=== PATIENT | female | born 1965 | race Caucasian/White ===

== ENCOUNTER 2023-08-08 12:21 | Outpatient (OUT) | payer OTHER, SELFPAY ==
--- NOTE | 2023-08-08 12:26 | XR_ITS ---
[address] [address] Patient Name: ERIK CORONA MRN: [id number] date: 1965 Sex: F Assigned Patient Location: [facility] Current Patient Location: [facility] Accession/Order Number: [id number] Exam Date: 08/08/2023 12:50 Report Date: 08/08/2023 13:52 At the request of: NON-STAFF PHYSICIAN Procedure: XR hand GATO min 3v EXAMINATION: XR hand GATO min 3v HISTORY: pain in both hands M79.641 COMPARISON: No relevant comparison available. FINDINGS: RIGHT FINDINGS: BONES: No acute fracture or dislocation. Severe degenerative change of the first carpometacarpal joint with [id number] articulation and bony remodeling. SOFT TISSUES: Negative. No visible soft tissue swelling. OTHER: Negative. LEFT FINDINGS: BONES: No acute fracture or dislocation. Degenerative changes with mild narrowing of the first carpometacarpal joint SOFT TISSUES: Negative. No visible soft tissue swelling. OTHER: Negative. XR/XR hand GATO min 3v IMPRESSION: RIGHT CONCLUSION: Severe first carpometacarpal osteoarthritis LEFT CONCLUSION: Mild first carpometacarpal osteoarthritis Electronically authenticated by: NEW GARCIA Date: 08/08/2023 13:52
--- NOTE | 2023-08-08 12:27 | XR_ITS ---
[address] [address] Patient Name: ERIK CORONA MRN: [id number] date: 1965 Sex: F Assigned Patient Location: [facility] Current Patient Location: [facility] Accession/Order Number: [id number] Exam Date: 08/08/2023 12:50 Report Date: 08/08/2023 13:50 At the request of: NON-STAFF PHYSICIAN Procedure: XR foot GATO min 3V EXAMINATION: XR foot GATO min 3V HISTORY: primary osteoarthritis involving multiple joints M15.9 COMPARISON: No relevant comparison available. FINDINGS: RIGHT FINDINGS: BONES: No acute fracture or dislocation. Moderate enthesopathic spurring of the calcaneus at the Achilles and plantar insertions. No focal lytic or sclerotic changes SOFT TISSUES: Negative. No visible soft tissue swelling. OTHER: Negative. LEFT FINDINGS: BONES: No acute fracture or dislocation. Moderate enthesopathic spurring plantar calcaneus. No focal lytic or sclerotic changes SOFT TISSUES: Negative. No visible soft tissue swelling. OTHER: Negative. XR/XR foot GATO min 3V IMPRESSION: Bilateral calcaneal enthesopathic spurring Electronically authenticated by: NEW GARCIA Date: 08/08/2023 13:50
--- NOTE | 2023-08-08 12:28 | XR_ITS ---
The [address] [address] Patient Name: ERIK CORONA MRN: [id number] date: 1965 Sex: F Assigned Patient Location: [facility] Current Patient Location: [facility] Accession/Order Number: [id number] Exam Date: 08/08/2023 12:50 Report Date: 08/08/2023 13:54 At the request of: NON-STAFF PHYSICIAN Procedure: XR knee GATO 4V EXAMINATION: XR knee GATO 4V HISTORY: primary osteoarthritis involving multiple joints M15.9 COMPARISON: No relevant comparison available. FINDINGS: RIGHT FINDINGS: BONES: No acute fracture or dislocation. Mild to moderate tricompartmental osteoarthropathy with joint space narrowing marginal osteophyte formation SOFT TISSUES: Negative. No visible soft tissue swelling. OTHER: Negative. LEFT FINDINGS: BONES: No acute fracture or dislocation. Mild to moderate tricompartmental osteoarthropathy with joint space narrowing and marginal osteophyte formation SOFT TISSUES: Negative. No visible soft tissue swelling. OTHER: Negative. XR/XR knee GATO 4V IMPRESSION: Bilateral mild to moderate osteoarthritis Electronically authenticated by: NEW GARCIA Date: 08/08/2023 13:54
== END 2023-08-08 12:22 | disposition home or self-care (01) ==
LOC: RAD 12:21
PROVIDERS: PCP Internal Medicine
DX: M79.641 Pain in right hand (principal); M79.642 Pain in left hand; M19.041 Primary osteoarthritis, right hand; M19.042 Primary osteoarthritis, left hand; M25.561 Pain in right knee; M25.562 Pain in left knee; M79.671 Pain in right foot; M79.672 Pain in left foot
CPT/HCPCS: 73130; 73564; 73630

== ENCOUNTER 2023-10-11 10:48 | Outpatient (OUT) | payer OTHER, SELFPAY ==
--- OUTSIDE RECORDS SUMMARY | 2023-10-11 11:03 | XMS_ITS | CCD ---
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 Name Role Phone Lito Mcrae DO Primary Care Provider LALY, DR MARIO Admitting Unavailable LALY, DR MARIO Primary Care Unavailable LALY, DR MARIO Consulting Unavailable LALY, DR MARIO Attending Unavailable LALY, DR MARIO Admitting Unavailable LALY, DR MARIO Primary Care Unavailable LALY, DR MARIO Consulting Unavailable LALY, DR MARIO Attending Unavailable RADHA, DR NEW [place] Consulting Unavailable Lito Mcrae DO Primary Care Provider Lito Mcrae LITO MCRAE Primary Care Unavailable DELIA RUSHING Attending Unavailable LITO MCRAE Primary Care Unavailable DELIA RUSHING Referring Unavailable LITO MCRAE Primary Care Unavailable DELIA RUSHING Attending Unavailable LITO MCRAE Primary Care Unavailable Allergies Allergy Classification Reported Allergen(s) Allergy Type Date of Onset Reaction(s) Facility (1 source) patient allergy list reviewed by nurse or physicia Propensity to adverse reactions Comment:Done [employer] Other Medications Current Medications Medication Drug Class(es) Dates Sig (Normalized) Sig (Original) 3 ML semaglutide 1.34 MG/ML Pen Injector [Ozempic] (6 sources) Ozempic (1 MG/DO SE) 4 MG/3ML as directed Subcutaneous 1mg Active 3 ML semaglutide 2.68 MG/ML Pen Injector [Ozempic] (13 sources) Start: 09-22-2022 inject 2 mg by subcutaneous injection every week Ozempic (2 MG/DOSE) 8 MG/3ML 2mg Subcutaneous weekly Aug, Active Start: 09-22-2022 Start: 09-22-2022 inject 2 mg by subcu taneous injection every week Ozempic (2 MG/DOSE) 8 MG/3ML 2mg Subcutaneous weekly for 90 days Aug, Active acetaminophen 500 mg oral tablet (7 sources) Start: 08-14-2023 take 1 tablet by mouth every six hours Acetaminophen (Tylenol Extra Strength) 500 mg tablet Active 500 MG PO Every 6 hours August 14, 2023 12:00am Comment on above: Take 500 mg by mouth as needed. 12 hr buPROPion hydrochloride 150 mg extended release oral tablet (20 sources) Aminoketone Start: 08-14-2023 take 1 tablet by mouth once daily in the morning Bupropion Hcl (Wellbutrin Sr) 150 mg tablet sustained-release 12 hr Active 150 MG PO Every morning August 14, 2023 12:00am take 1 tablet by mouth once [place] buPROPion XL (WELLBUTRIN XL) 150 mg 24 hr tablet Take 150 mg by mouth once daily. 0 Active take 1 tablet by felipa th every twenty-four hours Wellbutrin SR 150 MG 1 tablet in the mor josh Orally Once a day Active Comment on above: Take 150 mg by mouth once daily. escitalopram 20 mg oral tablet (20 sources) Serotonin Reuptake Inhibitor Start: 4 take 1 tablet by mouth twice daily Escitalopram Oxalate Active 1 TAB PO Twice daily August 14, 2023 12:00am FreeTextSi tablet Orally twice daily; Note: Source Status: Refill; Refills: 1; Provider: Laly Roque Start: 01-27-2018 escitalopram o xalate (LEXAPRO) 20 mg tablet once daily. 0 01/27/2018 Active take 1 tablet by felipa th twice daily Escitalopram Oxalate 20 MG 1 tablet Orally twice daily for 90 days Active Comment on above: once daily. esomeprazole 20 mg delayed release oral capsule (20 sources) Proton Pump Inhibitor Start: 4 take 1 capsule by mouth once daily Esomeprazole Magnesium (Nexium) 20 mg capsule,delayed release(DR/EC) Active 20 MG PO Daily August 14, 2023 12:00am esomeprazole (NE XIUM) 20 mg capsule Take 40 mg by mouth as needed. 0 Active Esomeprazole Mag nesium 40 MG TAKE 1 CAPSULE BY MOUTH EVERY DAY ON EMPTY STOMACH 30 MINUTES PRIOR TO BREAKFAST for 30 Not-Taking/PRN take 1 capsule by mo [facility] every twenty-four hours NexIUM 24HR 20 MG 1 capsule Orally Once a day Active Comment on above: Take 40 mg by mouth as needed. etodolac 500 mg oral tablet (6 sources) Nonsteroidal Anti-inflammatory Drug take 1 tablet by mouth every twelve hours Etodolac 500 MG 1 tablet with food Orally Twice a day Active hydroCHLOROthiazide 12.5 mg / lisinopril 20 mg oral tablet (20 sources) Thiazide Diuretic, Angiotensin Converting Enzyme Inhibitor Start: 08-14-19 take 2 tablets by mouth once daily Lisinopril-Hydr ochlorothiazide Active 2 TAB PO Daily August 14, 2023 12:00am FreeTextSi tablet Orally Once a day; Note: Source Status: Refill; Refills: 1; Qty: 180 Tablet; Provider: Laly Roque take 1 tablet by felipa th once daily Lisinopril-hydroCHLOROthiazide 20-12.5 M G 1 tablet Orally Once a day Active take 1 tablet by felipa th every twenty-four hours Comment on above: Take 2 tablets by mo [facility] once daily. ibuprofen 200 mg oral tablet (20 sources) Nonsteroidal Anti-inflammatory Drug Start: 08-14-2023 take 200 mg by mouth three times daily Ibuprofen Active 200 MG PO Three times daily August 14, 2023 12:00am ibuprofen (MOTRI N) 400 mg tablet Take 400 mg by mouth as needed. 0 Active take 1 tablet by felipa three times daily at mealtime as needed Ibuprofen 200 MG 1 tablet with food or milk as needed Orally Three times a day Active Comment on above: Take 400 mg by mouth as needed. ozempic (2 mg/dose) 8 mg/3ml solution pen-injector (2 sources) Start: 09-23-19 inject 2 mg by subcutaneous injection every week Ozempic (2 MG/DOSE) 8 MG/3ML 2mg Subcutaneous weekly Aug, Active predniSONE 20 mg oral tablet (4 sources) Start: 11-30-19 predniSONE 20 MG 1 tablet Orally tid w/ food x 3 days, then bid w/ food x 3 days, then qd w/ food x 3 days for October, Active Semaglutide (Ozempic) 2 mg/dose (8 mg/3 mL) pen injector (1 source) Start: 08-14-19 inject 2 mg by subcutaneous injection every week Semaglutide (Ozempic) 2 mg/dose (8 mg/3 mL) pen injector Active MG SUBCUT August 14, 2023 12:00am FreeTextSimg Subcutaneous weekly; Note: Source Status: Continue; Provider: Laly Roque traMADol hydrochloride 50 mg oral tablet (8 sources) Opioid Agonist Start: 08-14-19 take 50 mg by mouth once daily at bedtime Tramadol Active 50 MG PO Daily at bedtime August 14, 2023 12:00am Start: 05-25-2023 take 1 tablet by felipa th once at bedtime as needed traMADol HCl 50 MG 1 tablet as needed Orally q HS May, Active Tylenol Extra Strength 500 M G (13 sources) take 1 tablet by felipa th every six hours as needed Tylenol Extra Strength 500 MG 1 tablet a s needed Orally every 6 hrs Active Completed/Discontinued Medications Medication Drug Class(es) Dates Sig (Normalized) Sig (Original) Calcium Carbonate / vitamin D3 (2 sources) End: 10-31-2022 CALCIUM CARBONATE/VITAMIN D3 (CALCIUM 600 + D ORAL) Take by mouth twice daily. 0 10/31/2022 Discontinued CALCIUM CARBONAT E/VITAMIN D3 (CALCIUM 600 + D ORAL) Take by mouth twice daily. 0 Active Comment on above: Take by mouth twice daily. cholecalciferol 0.125 mg oral tablet (2 sources) Vitamin D End: 2022 take 1 tablet by mouth once daily cholecalciferol (VITAMIN D-3) 5,000 unit tab Take 5,000 Units by mouth once daily. 0 10/31/2022 Discontinued Comment on above: Take 5,000 Units by mouth once daily. chromium picolinate 0.2 mg oral tablet (2 sources) End: 2022 take 1 tablet by mouth once daily Chromium Picolinate 200 mcg tab Take 200 mcg by mouth once daily. 0 10/31/2022 Discontinued Comment on above: Take 200 mcg by mout h once daily. cinnamon bark 1000 mg oral capsule (2 sources) End: 2022 take 1000 mg by mouth once daily CINNAMON BARK ORAL Take 1,000 mg by mouth once daily. 0 10/31/2022 Discontinued Comment on above: Take 1,000 mg by felipa th once daily. ergocalciferol 1.25 mg oral capsule (2 sources) Provitamin D2 Compound Start: 2022 End: 2023 ergocalciferol 50,000 unit capsule (VITAMIN D2, DRISDOL) Indications: BMI 50.0-59.9, adult (HCC) , Vitamin D deficiency , Hyperparathyroidism due to vitamin D deficiency (HCC) Take 1 capsule by mouth two times a week. (FOR EXAMPLE ONE CAPSULE ON SUNDAY AND ONE ON SUNDAY) FOR A TOTAL OF 8 WEEKS, WITH A MEAL 8 capsule 1 11/29/2022 10/09/2023 Discontinued (Discontinued by Patient) Comment on above: Take 1 capsule by mo [facility] two times a week. (FOR EXAMPLE ONE CAPSULE ON SUNDAY AND ONE ON SUNDAY) FOR A TOTAL OF 8 WEEKS, WITH A MEAL hydroxychloroquine sulfate 200 mg oral tablet (20 sources) Antimalarial, Antirheumatic Agent Start: 2020 End: 2021 take 1 tablet by mouth twice daily hydrOXYchloroQUINE (PLAQUENIL) 200 mg tablet Indications: Keratoconjunctivitis sicca, in Sjogren's syndrome ([facility]) Take 1 tablet by mouth twice a day 180 tablet 2 03/31/2022 Active Comment on above: Take 1 tablet by felipa th twice daily. Take 1 tablet by felipa th twice a day Lactobacillus acidophilus (2 sources) End: 2022 LACTOBACILLUS ACIDOPHILUS (PROBIOTIC ORAL) Take by mouth once daily. 0 10/31/2022 Discontinued LACTOBACILLUS AC IDOPHILUS (PROBIOTIC ORAL) Take by mouth once daily. 0 Active Comment on above: Take by mouth once d aily. magnesium oxide 500 mg oral tablet (2 sources) End: 10-31-2022 take 1 tablet by mouth once daily Magnesium Oxide 500 mg tab Take 500 mg by mouth once daily. 0 10/31/2022 Discontinued Comment on above: Take 500 mg by mouth once daily. omega 6-yzu-rhp-fish oil (FISH OIL) 100-160-1,000 mg cap (2 sources) End: 10-31-2022 omega 0-sjd-zhy-fish oil (FISH OIL) 100-160-1,000 mg cap Take by mouth twice daily. 0 10/31/2022 Discontinued omega 3-dha-epa- fish oil (FISH OIL) 100-160-1,000 mg cap Take by mouth twice daily. 0 Active Comment on above: Take by mouth twice daily. semaglutide (OZEMPIC) 0.25 mg or 0.5 mg (2 mg/3 mL) pen (3 sources) End: 10-09-2023 semaglutide (OZEMPIC) 0.25 mg or 0.5 mg (2 mg/3 mL) pen Inject subcutaneously one time a week. 0 10/09/2023 Discontinued (Discontinued by Patient) semaglutide (OZE MPIC) 0.25 mg or 0.5 mg (2 mg/3 mL) pen Inject subcutaneously one time a week. 0 Active Comment on above: Inject subcutaneousl y one time a week. VITAMIN B COMPLEX ORAL (2 sources) End: 10-31-2022 VITAMIN B COMPLEX ORAL Take by mouth once daily. 0 10/31/2022 Discontinued VITAMIN B COMPLE X ORAL Take by mouth once daily. 0 Active Comment on above: Take by mouth once d aily. Problems Active Problems Problem Classification Problem Date Documented Date Episodic/Chronic Administrative/social admission (6 sources) Patient encounter status; Translations: [Other specified counseling] Episodic Anxiety disorders (20 sources) Generalized anxiety disorder; Translations: [Generalized anxiety disorder] Onset: 01-01-20 14 Chronic Calculus of urinary tract (2 sources) H/O: urinary stone; Translations: [Personal history of urinary calculi] Onset: 02-08-20 19 Episodic Diabetes mellitus with complications (20 sources) Hyperglycemia due to type 2 diabetes mellitus; Translations: [Type 2 diabetes mellitus with hyperglycemia] Chronic Diabetes mellitus without complication (1 source) Impaired fasting glycemia; Translations: [Impaired fasting glucose] Episodic Diseases of mouth; excluding dental (2 sources) Xerostomia; Translations: [Dry mouth, unspecified] Episodic Diseases of white blood cells (1 source) Leukocytosis; Translations: [Elevated white blood cell count, unspecified] Onset: 02-08-20 19 Chronic Disorders of lipid metabolism (16 sources) Pure hypercholesterolemia; Translations: [Familial hypercholesterolemia] Chronic Disorders of teeth and jaw (16 sources) Dental abscess; Translations: [Periapical abscess without sinus] Episodic Esophageal disorders (20 sources) Gastro-esophageal reflux disease with esophagitis; Translations: [Gastroesophageal reflux disease with esophagitis without hemorrhage] Chronic Essential hypertension (20 sources) Essential hypertension; Translations: [Essential (primary) hypertension] Onset: 02-04-20 15 12-17-2016 Chronic Immunizations and screening for infectious disease (3 sources) Anti-nuclear factor positive; Translations: [Other specified abnormal immunological findings in serum] Onset: 11-01-19 23 Episodic Menopausal disorders (1 source) Menopause present; Translations: [Menopausal and female climacteric states] Onset: 01-01-20 14 Chronic Mood disorders (20 sources) Mild major depression, single episode; Translations: [Major depressive disorder, single episode, mild] Onset: 02-04-20 15 Chronic Mycoses (1 source) Candidiasis of skin and nails; Translations: [Candidiasis of skin and nail] Episodic Nausea and vomiting (15 sources) Nausea; Translations: [Nausea] Episodic Nutritional deficiencies (2 sources) Vitamin D deficiency; Translations: [Vitamin D deficiency, unspecified] Onset: 05-15-20 17 10-09-2023 Chronic Osteoarthritis (20 sources) Degenerative joint disease involving multiple joints; Translations: [Polyosteoarthritis, unspecified] Onset: 05-15-20 17 03-23-2019 Chronic Other connective tissue disease (15 sources) Pain in limb; Translations: [Pain in right foot] Episodic Other connective tissue disease (16 sources) Achilles bursitis; Translations: [Achilles tendinitis, right leg] Episodic Other connective tissue disease (15 sources) Calcaneal spur; Translations: [Calcaneal spur, right foot] Episodic Other connective tissue disease (2 sources) Pain in right hand; Translations: [PAIN IN RIGHT HAND] Onset: 09-27-19 23 Episodic Other connective tissue disease (2 sources) Pain in left hand; Translations: [PAIN IN LEFT HAND] Onset: 09-27-19 23 Episodic Other connective tissue disease (5 sources) Pain in right foot; Translations: [PAIN IN RIGHT FOOT] Onset: 09-24-19 23 Episodic Other connective tissue disease (1 source) Pain of bilateral hands; Translations: [Pain in right hand] Episodic Other connective tissue disease (1 source) Exostosis of right calcaneus; Translations: [Calcaneal spur, right foot] Episodic Other connective tissue disease (1 source) Calcaneal spur of right foot; Translations: [Calcaneal spur, right foot] Episodic Other connective tissue disease (1 source) Pain in right foot; Translations: [Pain in right foot] Episodic Other connective tissue disease (1 source) Pain in both feet; Translations: [Pain in right foot] 10-09-2023 Episodic Other endocrine disorders (1 source) Hyperparathyroidism due to vitamin D deficiency; Translations: [Secondary hyperparathyroidism, not elsewhere classified] 10-09-2023 Chronic Other eye disorders (2 sources) Dry eyes; Translations: [Dry eye syndrome of bilateral lacrimal glands] Episodic Other female genital disorders (1 source) Abnormal uterine bleeding; Translations: [Abnormal uterine and vaginal bleeding, unspecified] Onset: 01-24-20 14 Chronic Other gastrointestinal disorders (16 sources) Diarrhea; Translations: [Diarrhea, unspecified] Episodic Other non-traumatic joint disorders (1 source) Allergic arthritis of the hand; Translations: [Allergic arthritis, hand] Onset: 04-22-20 14 Chronic Other non-traumatic joint disorders (1 source) Pain in right knee; Translations: [Pain in joint, lower leg] 10-09-2023 Episodic Other nutritional; endocrine; and metabolic disorders (16 sources) Body mass index 40+ - severely obese; Translations: [Morbid (severe) obesity due to excess calories] Onset: 09-05-19 14 09-17-2020 Chronic Other nutritional; endocrine; and metabolic disorders (16 sources) Morbid obesity; Translations: [Morbid (severe) obesity due to excess calories] Chronic Other nutritional; endocrine; and metabolic disorders (2 sources) Morbid (severe) obesity due to excess calories Chronic Other nutritional; endocrine; and metabolic disorders (1 source) Obesity; Translations: [Obesity, unspecified] Onset: 09-05-19 14 Chronic Other nutritional; endocrine; and metabolic disorders (1 source) Metabolic syndrome X; Translations: [Metabolic syndrome] Onset: 12-28-19 19 Chronic Other nutritional; endocrine; and metabolic disorders (9 sources) Severe obesity; Translations: [Morbid (severe) obesity due to excess calories] Chronic Other nutritional; endocrine; and metabolic disorders (1 source) Body mass index (BMI) 50.0-59.9, adult Chronic Other upper respiratory infections (2 sources) Acute maxillary sinusitis; Translations: [Acute maxillary sinusitis, unspecified] Onset: 08-12-19 16 Episodic Rheumatoid arthritis and related disease (20 sources) Inflammatory polyarthropathy; Translations: [Inflammatory polyarthropathy] Onset: 10-29-19 16 Chronic Systemic lupus erythematosus and connective tissue disorders (20 sources) Keratoconjunctivitis sicca, in Sjogren's syndrome; Translations: [Sicca syndrome with keratoconjunctivitis] Onset: 12-18-19 17 Chronic Past or Other Problems Problem Classification Problem Date Documented Date Episodic/Chronic Bacterial infection; unspecified site (1 source) Bacterial infectious disease; Translations: [Bacterial infection, unspecified, in conditions classified elsewhere and of unspecified site] Onset: 7 Episodic Esophageal disorders (4 sources) Esophageal disorders; Translations: [Gastro-esophageal reflux disease with esophagitis, without bleeding] Genitourinary symptoms and ill-defined conditions (1 source) Dysuria; Translations: [Dysuria] Onset: 5 Episodic Infective arthritis and osteomyelitis (except that caused by tuberculosis or sexually transmitted disease) (1 source) Infective arthritis of joint of hand; Translations: [Unspecified infective arthritis, hand] Onset: 4 Episodic Other aftercare (1 source) Encounter for therapeutic drug level monitoring; Translations: [Encounter for monitoring of hydroxychloroquine therapy] Onset: 3 Episodic Other aftercare (1 source) Other skilled nursing (current) drug therapy; Translations: [Encounter for monitoring of hydroxychloroquine therapy] Onset: 3 Episodic Other female genital disorders (1 source) Mucous polyp of cervix; Translations: [Polyp of cervix uteri] Onset: 4 Episodic Other non-traumatic joint disorders (4 sources) Multiple joint pain; Translations: [Pain in unspecified joint] Onset: 1 03-18-2021 Episodic Other non-traumatic joint disorders (1 source) Arthralgia of the ankle and/or foot; Translations: [Pain in joint, ankle and foot] Onset: 8 Episodic Other screening for suspected conditions (not mental disorders or infectious disease) (3 sources) Encounter for screening mammogram for malignant neoplasm of breast; Translations: [Encounter for screening for malignant neoplasm of colon] Onset: 9 Episodic Residual codes; unclassified (1 source) Postmenopausal state; Translations: [Asymptomatic postmenopausal status] Onset: 5 Episodic Viral infection (1 source) Herpes zoster without complication; Translations: [Zoster without complications] Onset: 5 Episodic Results Test Name Value Interpretation Reference Range Facility [facility] 10-09-2023 CNOV Office Visit (RENZO ) -------- KASSIDY CORONA ([id number]) 1965 F Date Time Provider Department 10/09/23 10:40 AM DELIA RUSHING During your visit today, we recorded the following information about you: Pulse Blood pressure Weight 66/minute 148/78 140.6 kg Delia Rushing MD 10/09/2023 7:52 PM Signed Rheumatology FOLLOW UP VISIT Referring Provider: Self Date of Service: 10/09/2023 Gender: female Ethnicity: White Age: [age] year old Chief Complaint: Follow Up Last Rheumatology visit: 10/31/2022 (with Delia Rushing) Kassidy Corona is a 58 year old White female who presents on 10/09/2023 for in person visit for follow up of Follow Up. She is currently taking hydroxychloroquine sulfate. INTERVAL HISTORY Ms. Corona is a very nice 58 y.o. lady here for f/u Sjogren's Syndrome October 09, 2023 Sicca symptoms same, stable No par. gld swelling No keratoconjunctivitis sicca since last visit, following with transactional attorney No skin rashes States wonders if may have RA from reading the internet States LB, muscles in hips Fatigue Weakness in LE Stiffness : joint and muscle Knees, wrist, fingers, states sometimes they last all day , like they're internally swollen but you can't internally see it Sometimes feels flu Numbness and tingling, when sleeping at night, fingers Feels losing quality Trouble sleeping most of the time Advised on evaluation for sleep apnea Body mass index is 53.21 kg/m?. -States has been taking hydroxychloroquine 200 mg twice daily with meals -Taking Turmeric supplement with black pepper: 1000 mg with meals -Vitamin D supplement: 5000 international units once daily with meals Answers submitted by the patient for this visit: Review of Systems Rheumatology (Submitted on 10/02/2023) Fever : No Recent unintentional weight change: No Eye pain: No Eye redness: No Vision Disturbance: Yes Eye Dryness: Yes Nosebleeds: No Sores in your mouth: No Trouble Swallowing: No Dry Mouth: Yes Chest pain: No Leg Swelling: No A cough: No Shortness of breath: No Pain with breathing: No Heartburn: No Abdominal pain: No Diarrhea: No Black tarry stools: No Blood in urine: No Pain or burning with urination: No Joint pain or stiffness: Yes Muscle weakness: Yes Muscle aches: Yes Joint swelling: Yes- reviewed, no jt swelling, referring to basal thumb jts Morning Stiffness in Joints: Yes A rash: No Skin Color Changes: No Hair Loss: No Nail Changes: No Headaches: No Numbness: Yes Memory Loss: No Swollen Glands: No PAIN EVALUATION 10/02/2023 1237 Pain Level: 6 Pain Location: Generalized Description: Aching;Burning;Dull;Numb ness;Stabbing;Stiffness; Tingling Duration Units: Days Frequency: Continuous Intervention/Comfort measure: Medication;Relaxation Impression Diagnoses: (M35.00) Primary Sjogren's syndrome (HCC) (primary encounter diagnosis) (R76.8) KJ positive (H04.123) Dry eyes, bilateral (R68.2) Dry mouth (M35.01) Keratoconjunctivitis sicca, in Sjogren's syndrome (HCC) (Z51.81, Z79.899) Encounter for monitoring of hydroxychloroquine therapy (M79.671, M79.672) Pain in both feet (M25.561, M25.562) Pain in both knees, unspecified chronicity (E55.9) Vitamin D deficiency (E21.1) Hyperparathyroidism due to vitamin D deficiency (HCC) (M19.041, M19.042) Primary osteoarthritis of hands, bilateral (M15.9) Primary osteoarthritis involving multiple joints (Z71.2) Encounter to discuss test results (Z71.) Encounter for medication review and counseling (Z71.) Counseling on health promotion and disease prevention Patient with history of Sjogren's Syndrome, diagnosed by Dr. Mckeon, with xerophthalmia and xerostomia, KJ positive. She has had negative SSa, SSb, RF and rest of MISBAH panel. SPEP/UPEP have been negative. She has no history of lymphoma or mm. She has no findings for sarcoidosis, RA or other rheum disease. She has no parotid gland swelling, no vital organ involvement. She is managing well with conservative care and follows good oral and ocular care and is following with her dentist and eye doctor. She has long standing history of polyarthralgia with reported benefit to steroids (?dose) and Dr. Salcedo and Dr. Ortiz have prescribed hydroxychloroquine. The patient reports well tolerated, may have helped with her joint stiffness and has no swelling on hydroxychloroquine today. She wishes to continue on hydroxychloroquine. Her G6PD screen is negative. She follows yearly for her retina exam, no Plaquenil toxicity. In terms of her question, I reassured her that she has no clinical findings or evidence for Psoriatic Arthritis, Rheumatoid Arthritis and no other inflammatory arthropathy at this time. She has no nail pitting or dystrophy. She has commonly seen nail ridges. She hand carried her outside hand x-rays and I (more content not included)... Normal [facility] KJ BY IFA WITH REFLEXon KJ Pattern Nuclear fine speckled Cl [facility] KJ Titer 1:160 [facility] Nuclear Ab IF (S) [Titer] Positive Abnormal Negative [facility] C-REACTIVE PROTEIN (CRP)on 0 11-01-2022 CRP [Mass/Vol] 0.5 mg/dL <0.9 mg/dL [facility] C3 COMPLEMENT [facility] 11-02-19 23 Complement C3 [Mass/Vol] 145 mg/dL 86 - 166 mg/dL [facility] C4 COMPLEMENT [facility] 11-02-19 23 Complement C4 [Mass/Vol] 36 mg/dL 13 - 46 mg/dL [facility] CCP ANTIBODY IGGon Cyclic citrullinated peptide IgG Qn <20 Units [facility] Comprehensive metabolic 2000 panelon 11-01-2022 Albumin [Mass/Vol] 4.5 g/dL 3.9 - 4.9 g/dL [facility] ALP [Catalytic activity/Vol] 68 U/L 34 - 123 U/L [facility] [place] ALT [Catalytic activity/Vol] 12 U/L 7 - 38 U/L [facility] Anion gap [Moles/Vol] 10 mmol/L 9 - 18 mmol/L [facility] AST [Catalytic activity/Vol] 16 U/L 13 - 35 U/L [facility] [place] Bilirubin [Mass/Vol] 0.2 mg/dL 0.2 - 1 .3 mg/dL [facility] Calcium [Mass/Vol] 9.9 mg/dL 8.5 - 10. 2 mg/dL [facility] Chloride [Moles/Vol] 103 mmol/L 97 - 10 5 mmol/L [facility] CO2 [Moles/Vol] 29 mmol/L 22 - 30 mmol/L [facility] Creatinine [Mass/Vol] 0.82 mg/dL 0.58 - 0.96 mg/dL [facility] Estimated Glomerular Filtration Rate 83 mL/min/1.73m >=60 mL/min/1.73m [facility] [place] Glucose [Mass/Vol] 101 mg/dL High 74 - 99 mg/dL [facility] Potassium [Moles/Vol] 4.3 mmol/L 3.7 - 5.1 mmol/L [facility] Protein [Mass/Vol] 7.2 g/dL 6.3 - 8.0 g/dL [facility] Sodium [Moles/Vol] 142 mmol/L 136 - 144 mmol/L [facility] Urea nitrogen [Mass/Vol] 16 mg/dL 7 - 21 mg/dL [facility] Cyclic citrullinated peptide IgG Qnon 11-01-2022 CCP Antibody IgG Qualitative Negative Negative [facility] G-6-PD QUANTITATIVEon 2022 G6PD (RBC) [Catalytic activity/Mass] 12.7 U/g Hb 9.8 - 15.5 U/g Hb [facility] PTH INTACT BLDon 11-01-2022 Parathyrin.intact [Mass/Vol] 71 pg/mL High 15 - 65 pg/mL [facility] RHEUMATOID FACTOR BLon 11-01 Rheumatoid factor Qn <16 IU/mL [facility] THYROGLOBULIN ABon Thyroglobulin Ab Qn <4.0 IU/mL [facility] THYROID STIMULATING IMMUNOGL OBULIN BLOODon 11-01-2022 Thyroid stimulating immunoglobulins actual/normal (S) [Relative mass conc] <0.55 IU/L [facility] TSI Qualitative Negative Negative [facility] VITAMIN D 25 HYDROXYon 11-01 25-hydroxyvitamin D3 [Mass/Vol] 21.5 ng/mL Low 31.0 - 80.0 ng/mL [facility] 25(OH)D3 SerPl-ncon 2022 25-hydroxyvitamin D3 [Mass/Vol] 21.5 ng/mL Low 31.0-80.0 [facility] Comment on above: Order Comment: Speci men Type: BLOOD SPECIMEN Ordering Facility: [facility] Address: [address] [place] [address] Result Comment: Clas sification of 25 [place] Vitamin D status: Deficiency/Insufficiency: < or = 30 ng/ml. Sufficiency/Optimal Levels: 31-80 ng/mL Toxicity: > 100 ng/mL. Test performed by chemiluminescent immunoassay. Performed By: #### 1 7792-3, 17608-1, 45791-0, 29131-4, 14263-2, 48161-8, 36689-8, 82027-1, ANAIFR, 24082-4 #### [facility] CLIA [id number] [address] [place] [address] [place] KJ BY IFA WITH REFLEXon KJ PATTERN Nuclear fine speckled Normal [facility] Comment on above: Order Comment: Speci men Type: BLOOD SPECIMEN Ordering Facility: [facility] Address: [address] [place] [address] Performed By: #### 1 7792-3, 52793-7, 36183-4, 47082-9, 08645-3, 23301-6, 01393-5, 43001-0, ANAIFR, 68581-9 #### [facility] CLIA [id number] [facility] [place] [address] [place] KJ TITER 1:160 Normal [facility] Comment on above: Order Comment: Speci men Type: BLOOD SPECIMEN Ordering Facility: [facility] Address: [address] [place] [address] Performed By: #### 1 7792-3, 53287-6, 94771-1, 91360-5, 61678-3, 69279-3, 86487-9, 23154-5, ANAIFR, 62431-8 #### [facility] CLIA [id number] [address] [place] [address] [place] Nuclear Ab IF (S) [Titer] Positive Abnormal Negative [facility] Comment on above: Order Comment: Dieudonne orourke Type: BLOOD SPECIMEN Ordering Facility: [facility] Address: [address] [place] [address] Result Comment: Anti -nuclear antibody test is used as an aid in diagnosis of systemic autoimmune diseases. Where positive and clinically warranted, follow-up using disease-specific testing is recommended. Low positive titers are not uncommon with advanced age, certain chronic infections, and malignancies among others. Test methodology: Indirect fluorescence immunoassay (IFA) using HEp-2 cells. Performed By: #### 1 7792-3, 13963-2, 20927-9, 86923-7, 09134-3, 94150-8, 27301-3, 93329-3, ANAIFR, 82042-9 #### [facility] CLIA [id number] [address] [place] [address] [place] C3 SerPl-mCncon 10-31-2022 Complement C3 [Mass/Vol] 145 mg/dL Normal 86-166 [facility] Comment on above: Order Comment: Dieudonne orourke Type: BLOOD SPECIMEN Ordering Facility: [facility] Address: [address] [place], [place] [address] Performed By: #### 1 7792-3, 25881-8, 41085-9, 47867-9, 55573-8, 47858-3, 59136-1, 80616-0, ANAIFR, 25301-3 #### [facility] CLIA [id number] [address] [place] [address] [place] C4 SerPl-mCncon 10-31-2022 Complement C4 [Mass/Vol] 36 mg/dL Normal 13-46 [facility] Comment on above: Order Comment: Dieudonne orourke Type: BLOOD SPECIMEN Ordering Facility: [facility] Address: [address] [place] [address] [place] [address] Performed By: #### 1 7792-3, 12879-3, 69800-7, 26010-7, 94378-9, 37561-4, 06633-6, 66686-2, BRITNI, 06303-2 #### [facility] CLIA [id number] [address] [facility] [id number] [address] [place] CBC W Auto Differential pane l (Bld)on 10-31-2022 Basophils (Bld) [#/Vol] 0.04 10*3/uL <0.11 k/uL [facility] Basophils/100 WBC (Bld) 0.6 % [facility] Differential cell count method Nom (Bld) Auto [facility] Eosinophils (Bld) [#/Vol] 0.14 10*3/uL <0.46 k/uL [facility] Eosinophils/100 WBC (Bld) 2.1 % [facility] Erythrocyte distribution width (RBC) [Ratio] 13.0 % 11.5 - 15.0 % [facility] Hematocrit (Bld) [Volume fraction] 41.1 % 36.0 - 46.0 % [facility] Hemoglobin (Bld) [Mass/Vol] 13.6 g/dL 11.5 - 15.5 g/dL [facility] Immature granulocytes (Bld) [#/Vol] <0.10 k/uL [facility] Immature granulocytes/100 WBC (Bld) 0.3 % [facility] Lymphocytes (Bld) [#/Vol] 1.96 10*3/uL 1.00 - 4.00 k/uL [facility] Lymphocytes/100 WBC (Bld) 29.3 % [facility] MCH (RBC) [Entitic mass] 29.7 pg 26.0 - 34.0 pg [facility] MCHC (RBC) [Mass/Vol] 33.1 g/dL 30.5 - 36.0 g/dL [facility] MCV (RBC) [Entitic vol] 89.7 fL 80.0 - 100.0 fL [facility] Monocytes (Bld) [#/Vol] 0.45 10*3/uL <0.87 k/uL [facility] Monocytes/100 WBC (Bld) 6.7 % [facility] Neutrophils (Bld) [#/Vol] 4.08 10*3/uL 1.45 - 7.50 k/uL [facility] Neutrophils/100 WBC (Bld) 61.0 % [facility] Nucleated RBC (Bld) [#/Vol] <0.01 k/uL [facility] Nucleated RBC/100 WBC (Bld) [Ratio] 0.0 /100 WBC [facility] Platelet mean volume (Bld) [Entitic vol] 10.0 fL 9.0 - 12.7 fL [facility] Platelets (Bld) [#/Vol] 318 10*3/uL 150 - 400 k/uL [facility] RBC (Bld) [#/Vol] 4.58 10*6/uL 3.90 - 5.2 0 m/uL [facility] WBC (Bld) [#/Vol] 6.69 10*3/uL 3.70 - 11. 00 k/uL [facility] Basophils (Bld) [#/Vol] 0.04 10*3/uL Normal <0.11 [facility] Comment on above: Order Comment: Speci men Type: BLOOD SPECIMEN Ordering Facility: [facility] Address: [address] [place] [address] Performed By: #### 1 7792-3, 06684-5, 33752-3, 14533-2, 11449-8, 22022-9, 55002-9, 82043-4, ANAIFR, 84357-6 #### [facility] CLIA [id number] [address] [facility] Basophils/100 WBC (Bld) 0.6 % Normal [facility] Comment on above: Order Comment: Speci men Type: BLOOD SPECIMEN Ordering Facility: [facility] Address: [address] [place] [address] Performed By: #### 1 7792-3, 57883-2, 63005-8, 79333-2, 28231-8, 76199-5, 12739-7, 99709-7, ANAIFR, 21956-7 #### [facility] CLIA [id number] [address] [place] [address] [place] Differential cell count method Nom (Bld) Auto Normal [facility] Comment on above: Order Comment: Speci men Type: BLOOD SPECIMEN Ordering Facility: [facility] Address: [address] [place] [address] Performed By: #### 1 7792-3, 39433-0, 01283-7, 23619-7, 23540-1, 93045-1, 30399-1, 38054-3, ANAIFR, 07453-7 #### [facility] CLIA [id number] [facility] [place] [address] [place] Eosinophils (Bld) [#/Vol] 0.14 10*3/uL Normal <0.46 [facility] Comment on above: Order Comment: Speci men Type: BLOOD SPECIMEN Ordering Facility: [facility] Address: [address] [place], [place] [address] Performed By: #### 1 7792-3, 65801-4, 42100-0, 06980-1, 95061-9, 53210-8, 36904-2, 13038-0, ANAIFR, 39756-8 #### [facility] CLIA [id number] [address] [place] [address] [place] Eosinophils/100 WBC (Bld) 2.1 % Normal [facility] Comment on above: Order Comment: Speci men Type: BLOOD SPECIMEN Ordering Facility: [facility] Address: [address] [place], [place] [address] Performed By: #### 1 7792-3, 48915-2, 40923-3, 83860-9, 58114-7, 26775-5, 10654-4, 12119-0, ANAIFR, 13672-7 #### [facility] CLIA [id number] [facility] [place] [address] [place] Erythrocyte distribution width (RBC) [Ratio] 13.0 % Normal 11.5-15.0 [facility] Comment on above: Order Comment: Speci men Type: BLOOD SPECIMEN Ordering Facility: [facility] Address: [address] [place] [address] Performed By: #### 1 7792-3, 18964-2, 93215-8, 96791-3, 10159-0, 73446-5, 32885-4, 41191-7, ANAIFR, 19526-2 #### [facility] CLIA [id number] [address] [place] [address] [place] Hematocrit (Bld) [Volume fraction] 41.1 % Normal 36.0-46.0 [facility] Comment on above: Order Comment: Speci men Type: BLOOD SPECIMEN Ordering Facility: [facility] Address: [address] [place] [address] Performed By: #### 1 7792-3, 54999-0, 63016-4, 29042-7, 87393-0, 04293-3, 47554-0, 53088-8, ANAIFR, 64278-5 #### [facility] CLIA [id number] [address] [place] [address] [place] Hemoglobin (Bld) [Mass/Vol] 13.6 g/dL Normal 11.5-15.5 [facility] Comment on above: Order Comment: Speci men Type: BLOOD SPECIMEN Ordering Facility: [facility] Address: [address] [place] [address] Performed By: #### 1 7792-3, 17735-4, 42905-3, 79228-9, 78831-2, 56299-1, 31562-7, 82213-8, ANAIFR, 37089-3 #### [facility] CLIA [id number] [address] [place] [address] [place] Immature granulocytes (Bld) [#/Vol] 10*3/uL Normal <0.10 [facility] Comment on above: Order Comment: Speci men Type: BLOOD SPECIMEN Ordering Facility: [facility] Address: [address] Performed By: #### 1 7792-3, 43907-2, 05419-6, 02611-5, 93905-8, 11451-8, 54891-8, 52283-7, ANAIFR, 93683-5 #### [facility] CLIA [id number] [address] [place] [address] [place] Immature granulocytes/100 WBC (Bld) 0.3 % Normal [facility] Comment on above: Order Comment: Speci men Type: BLOOD SPECIMEN Ordering Facility: [facility] Address: [address] [place] [address] Performed By: #### 1 7792-3, 91141-5, 55452-1, 97134-3, 22187-4, 02234-3, 69884-2, 60340-3, ANAIFR, 62545-0 #### [facility] CLIA [id number] [address] [place] [address] [place] Lymphocytes (Bld) [#/Vol] 1.96 10*3/uL Normal 1.00-4.00 [facility] Comment on above: Order Comment: Speci men Type: BLOOD SPECIMEN Ordering Facility: [facility] Address: [address] [place] [address] Performed By: #### 1 7792-3, 44904-4, 04158-3, 41932-7, 51592-1, 10929-1, 08272-2, 80361-5, ANAIFR, 55706-8 #### [facility] CLIA [id number] [address] [place] [id number] [place] Lymphocytes/100 WBC (Bld) 29.3 % Normal [facility] Comment on above: Order Comment: Speci men Type: BLOOD SPECIMEN Ordering Facility: [facility] Address: [address] [place] [address] Performed By: #### 1 7792-3, 60087-6, 27560-1, 86629-6, 73180-1, 85082-4, 39599-6, 27437-8, ANAIFR, 96663-0 #### [facility] CLIA [id number] [address] [place] [address] [place] MCH (RBC) [Entitic mass] 29.7 pg Normal 26.0-34.0 [facility] Comment on above: Order Comment: Speci men Type: BLOOD SPECIMEN Ordering Facility: [facility] Address: [address] [place] [address] Performed By: #### 1 7792-3, 27835-1, 23678-2, 23408-4, 37073-7, 00010-0, 69843-2, 26552-7, ANAIFR, 83230-2 #### [facility] CLIA [id number] [address] [place] [address] [place] MCHC (RBC) [Mass/Vol] 33.1 g/dL Normal 30.5-36.0 [facility] Comment on above: Order Comment: Speci men Type: BLOOD SPECIMEN Ordering Facility: [facility] Address: [address] [place] [address] Performed By: #### 1 7792-3, 88437-8, 07991-4, 71314-5, 02179-8, 12867-1, 21277-6, 41258-1, ANAIFR, 86146-6 #### [facility] CLIA [id number] [address] [place] [address] [place] MCV (RBC) [Entitic vol] 89.7 fL Normal 80.0-100.0 [facility] Comment on above: Order Comment: Speci men Type: BLOOD SPECIMEN Ordering Facility: [facility] Address: [address] [place] [address] Performed By: #### 1 7792-3, 42780-2, 02545-3, 44824-8, 93870-0, 75066-8, 26457-1, 64314-1, ANAIFR, 87562-6 #### [facility] CLIA [id number] [address] [place] [address] [place] Monocytes (Bld) [#/Vol] 0.45 10*3/uL Normal <0.87 [facility] Comment on above: Order Comment: Speci men Type: BLOOD SPECIMEN Ordering Facility: [facility] Address: [address] [place] [address] Performed By: #### 1 7792-3, 23203-7, 37800-9, 02966-4, 17611-4, 61993-4, 52793-9, 78334-8, ANAIFR, 13183-5 #### [facility] CLIA [id number] [address] [place] [address] [place] Monocytes/100 WBC (Bld) 6.7 % Normal [facility] Comment on above: Order Comment: Speci men Type: BLOOD SPECIMEN Ordering Facility: [facility] Address: [address] [place] [address] Performed By: #### 1 7792-3, 23358-4, 53041-1, 40134-1, 70215-5, 39628-2, 44419-6, 24412-3, ANAIFR, 29006-9 #### [facility] CLIA [id number] [address] [place] [address] [place] Neutrophils (Bld) [#/Vol] 4.08 10*3/uL Normal 1.45-7.50 [facility] Comment on above: Order Comment: Speci men Type: BLOOD SPECIMEN Ordering Facility: [facility] Address: [address] [place] [address] Performed By: #### 1 7792-3, 85286-2, 79892-8, 91535-1, 88103-8, 62286-8, 00967-3, 51981-1, ANAIFR, 40270-0 #### [facility] CLIA [id number] [address] [place] [address] [place] Neutrophils/100 WBC (Bld) 61.0 % Normal [facility] Comment on above: Order Comment: Speci men Type: BLOOD SPECIMEN Ordering Facility: [facility] Address: [address] [place] [address] Performed By: #### 1 7792-3, 01454-1, 53555-0, 78854-7, 63662-8, 92941-1, 28198-0, 30285-2, ANAIFR, 69240-8 #### [facility] CLIA [id number] [facility] [place] [address] [place] Nucleated RBC (Bld) [#/Vol] 10*3/uL Normal <0.01 [facility] Comment on above: Order Comment: Speci men Type: BLOOD SPECIMEN Ordering Facility: [facility] Address: [address] [place], [place] [address] Performed By: #### 1 7792-3, 08758-5, 16425-5, 77480-6, 48864-5, 91706-0, 16326-5, 27604-9, ANAIFR, 07302-4 #### [facility] CLIA [id number] [address] [place] [address] [place] Nucleated RBC/100 WBC (Bld) [Ratio] 0.0 /100 WBC Normal [facility] Comment on above: Order Comment: Speci men Type: BLOOD SPECIMEN Ordering Facility: [facility] Address: [address] [place] [address] Performed By: #### 1 7792-3, 45961-1, 87128-4, 58278-5, 41061-6, 33327-0, 90351-9, 50377-0, ANAIFR, 08436-6 #### [facility] CLIA [id number] [facility] [place] [address] [place] Platelet mean volume (Bld) [Entitic vol] 10.0 fL Normal 9.0-12.7 [facility] Comment on above: Order Comment: Speci men Type: BLOOD SPECIMEN Ordering Facility: [facility] Address: [address] [place] [address] Performed By: #### 1 7792-3, 50836-4, 63801-5, 99350-4, 03065-6, 44804-8, 98474-3, 65976-4, ANAIFR, 50546-3 #### [facility] CLIA [id number] [address] [place] [address] [place] Platelets (Bld) [#/Vol] 318 10*3/uL Normal 150-400 [facility] Comment on above: Order Comment: Speci men Type: BLOOD SPECIMEN Ordering Facility: [facility] Address: [address] [place] [address] Performed By: #### 1 7792-3, 53014-3, 14438-9, 69141-2, 89564-7, 15852-0, 82345-2, 14177-4, ANAIFR, 71253-0 #### [facility] CLIA [id number] [facility] [place] [address] [place] RBC (Bld) [#/Vol] 4.58 10*6/uL Normal 3.90-5.20 [facility] Comment on above: Order Comment: Speci men Type: BLOOD SPECIMEN Ordering Facility: [facility] Address: [address] [place], [place] [address] Performed By: #### 1 7792-3, 00789-0, 39441-3, 49654-2, 03810-6, 07568-6, 41670-0, 64064-4, ANAIFR, 77867-7 #### [facility] CLIA [id number] [address] [place] [id number] [place] WBC (Bld) [#/Vol] 6.69 10*3/uL Normal 3.70-11.00 [facility] Comment on above: Order Comment: Speci men Type: BLOOD SPECIMEN Ordering Facility: [facility] Address: [address] [place], [place] [address] Performed By: #### 1 7792-3, 47637-8, 54886-0, 12588-9, 89790-4, 53920-5, 78549-0, 03988-4, ANAIFR, 98527-9 #### [facility] CLIA [id number] [address] [facility] [id number] [facility] CNOVon 10-31-2022 CNOV Office Visit (RENZO ) -------- KASSIDY CORONA ([id number]) 1965 F Date Time Provider Department 10/31/22 8:00 AM DELIA RUSHING During your visit today, we recorded the following information about you: Pulse Blood pressure Weight Height 83/minute 142/80 140.6 kg 1.626 m Delia Rushing MD 11/02/2022 7:43 PM Signed Rheumatology CONSULTATION Referring Provider: Date of Service: 10/31/2022 Gender: female Ethnicity: White Age: [age] year old Chief Complaint: Consult (Used to see Huma Ortiz MD. Last Ov 08/2021. Here for jt pains, would like to have evaluation for Psoriatic Arthritis and wants to transfer care) Last Rheumatology visit: 09/16/2021 (with Huma Ortiz) Kassidy Zhuoten is a 57 year old White female who presents on 10/31/2022 for in person visit for evaluation of Consult (Used to see Huma Ortiz MD. Last Ov 08/2021. Here for jt pains, would like to have evaluation for Psoriatic Arthritis and wants to transfer care). She is currently taking hydroxychloroquine sulfate. HISTORY OF PRESENT ILLNESS NEW CONSULT October 31, 2022 Ms. Corona is a very nice 57 y.o. lady, with reported PMH of HTN, gerd, Sjogren's Syndrome, osteoarthroses, depression/anxiety on bupropion and escitalopram. Never smoked Denies being diagnosed sleep apnea, has not been tested, does not believe has the symptoms. BMI >50, states has lost 65 lbs within 2 to 2.5 yrs, on Ozempic. 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 Ortiz at [facility], for Sjogren's Syndrome, on hydroxychloroquine. She would like to move closer to home and is planning to f/u with me. Discussed that Dr. Ortiz is my colleague and I am happy to follow her. She has initially seen Dr. Salcedo and when he left, transferred care to Dr. Ortiz. CC: hand pains, would like to know if has Psoriatic Arthritis States noticed changes in her nails and wondered if she could have Psoriatic Arthritis (nail ridges) Jt pains: b/l wrists, hands, fingers Majority of rt basal thumb, sometimes the rt index or pinky Today notices pinky b/l big toes, feels is the whole toe, denies discoloration States at work is constantly pumping BP cuff and typing Am stiffness: has to work her fingers because of stiffness Jt swelling: rt base of thumb, they feel like they's swollen sometimes referring to puffy fingers No history of dactylitis Enthesitis: states had history of PF and once used inserts never had an issue since No AT Rt heel post calcaneal spur, is larger and her Sample Maker Hand told her she will need surgery, states it yang and suspects may be affecting a nerve. Reports Sjogren's Syndrome stable, no concerns today. Sjogren's Syndrome since 2013 Dry eyes and mouth Denies parotid gld swelling Mouth feels like cotton in mouth, cannot eat a cracker without water At night, takes sips of water Dry eyes is anytime of the day, not limited to night time. States feels like eyes have sand in them some days Denies photosensitivity or skin rashes She has been on hydroxychloroquine prescribed by Dr. Salcedo, initially at [facility] and then refilled by Dr. Ortiz. Reviewed Dr. Ortiz's notes Follows regularly with dentist and transactional attorney. States has had cavities, still has most of her teeth She is not aware of keratoconjunctivitis sicca, but states sees it on her chart Denies being prescribed steroid eye gtts Follows with transactional attorney once a year, no Plaquenil toxicity States will be due for her next apt soon. States feeling more fatigue in past year Works Sun to from, 8 am to 8:30, 8 to 5pm, 8: 7: 30pm Family history: not aware of any history of Psoriasis or Psoriatic Arthritis Answers submitted by the patient for this visit: Review of Systems Rheumatology (Submitted on 10/25/2022) Fever : No Recent Unintentional Weight Change: No Eye Pain: No Eye Redness: No Vision Disturbance: Yes Eye Dryness: Yes Nose Bleeds: No Sores in your Mouth: No Trouble Swallowing: No Dry Mouth: Yes Chest Pain: No Leg Swelling: No A Cough: No Shortness of Breath: No Pain with Breathing: No Heartburn: No Abdominal Pain: No Diarrhea: No Black Tarry Stools: No Blood in Urine: No Pain or Burning with Urination: No Joint Pain or Stiffness: Yes Muscle Weakness: Yes Muscle Aches: Yes Joint Swelling: Yes Morning Stiffness in Joints: Yes A Rash: No Skin Color Changes: No Hair Loss: No Nail Changes: Yes- ridges, no pitting Headaches: No Numbness: No Memory Loss: No Swollen Glands: No Per Dr. Ortiz's note Per visit: 04/28/2015 'Ms. Kassidy Corona is a 49 year old White female who presents with polyarthralgia 2 yrs off and on in the past but got worse last yr. Has had polyarthralgia without swelling primarily involving (more content not included)... Normal [facility] CRP SerPl-mCncon 10-31-2022 CRP [Mass/Vol] 0.5 mg/dL Normal <0.9 [facility] Comment on above: Order Comment: Speci men Type: BLOOD SPECIMEN Ordering Facility: [facility] Address: [facility] [place] [address] Performed By: #### 1 7792-3, 37534-2, 01373-1, 44012-6, 27898-8, 50070-6, 10916-6, 77989-6, ANAIFR, 19411-5 #### [facility] CLIA [id number] [address] [place] [address] [place] Centromere Ab IF Ql (S)on Centromere Ab Qn (S) <0.2 Normal <1.0 [facility] Comment on above: Order Comment: Speci men Type: BLOOD SPECIMEN Ordering Facility: [facility] Address: [address] [place] [address] Result Comment: Anti -centromere antibody is used as in aid in diagnosis of systemic sclerosis. Clinical correlation is required. Test Methodology: Multiplex flow immunoassay. Performed By: #### 1 7792-3, 94595-9, 77887-8, 74804-8, 87750-8, 67843-3, 69051-6, 78772-9, ANAIFR, 98633-7 #### [facility] CLIA [id number] [address] [place] [address] [place] CENTROMERE AB QUAL Negative Normal Negative [facility] Comment on above: Order Comment: Speci men Type: BLOOD SPECIMEN Ordering Facility: [facility] Address: [address] [place] [address] Performed By: #### 1 7792-3, 99360-9, 85266-2, 85236-0, 82941-4, 30671-4, 67841-8, 99275-5, ANAIFR, 28732-2 #### [facility] CLIA [id number] [address] [place] [address] [place] Chromatin Ab Qnon 10-31-2022 CHROMATIN AB QUAL Negative Normal Negative [facility] Comment on above: Order Comment: Speci men Type: BLOOD SPECIMEN Ordering Facility: [facility] Address: [address] [place], [place] [address] Performed By: #### 1 7792-3, 14144-4, 32069-7, 85489-5, 35042-9, 73924-2, 77649-6, 65358-2, ANAIFR, 35196-7 #### [facility] CLIA [id number] [address] [place] [address] [place] Chromatin Ab SerPl-aCncon Chromatin Ab Qn 0.3 AI Normal <1.0 [facility] Comment on above: Order Comment: Speci men Type: BLOOD SPECIMEN Ordering Facility: [facility] Address: [address] [place] [address] Result Comment: Test Methodology: Multiplex flow immunoassay. Performed By: #### 1 7792-3, 28152-5, 38647-0, 51584-1, 30520-5, 37075-9, 47232-5, 67487-9, ANAIFR, 30462-3 #### [facility] CLIA [id number] [address] [place] [address] [place] Comprehensive metabolic 2000 panelon 10-31-2022 Albumin [Mass/Vol] 4.5 g/dL Normal 3.9-4.9 [facility] Comment on above: Order Comment: Speci men Type: BLOOD SPECIMEN Ordering Facility: [facility] Address: [address] [place] [address] Performed By: #### 1 7792-3, 64434-6, 09456-6, 77146-4, 86884-5, 63312-9, 20447-1, 13815-3, ANAIFR, 80395-1 #### [facility] CLIA [id number] [facility] [place] [address] [place] ALP [Catalytic activity/Vol] 68 U/L Normal 34-123 [facility] Comment on above: Order Comment: Speci men Type: BLOOD SPECIMEN Ordering Facility: [facility] Address: [address] Performed By: #### 1 7792-3, 27796-3, 09886-1, 93535-1, 01204-1, 50609-4, 92909-0, 91947-2, ANAIFR, 49745-9 #### [facility] CLIA [id number] [address] [place] [id number] [place] ALT [Catalytic activity/Vol] 12 U/L Normal 7-38 [facility] Comment on above: Order Comment: Speci men Type: BLOOD SPECIMEN Ordering Facility: [facility] Address: [address] [place] [address] Performed By: #### 1 7792-3, 66802-7, 71606-6, 10825-5, 82845-5, 55145-9, 23331-3, 75305-7, ANAIFR, 74820-8 #### [facility] CLIA [id number] [address] [place] [address] [place] Anion gap [Moles/Vol] 10 mmol/L Normal 9-18 [facility] Comment on above: Order Comment: Speci men Type: BLOOD SPECIMEN Ordering Facility: [facility] Address: [address] [place] [address] Performed By: #### 1 7792-3, 82992-5, 44537-0, 01722-9, 63433-3, 80993-4, 62095-4, 81091-2, ANAIFR, 95998-5 #### [facility] CLIA [id number] [address] [place] [address] [place] AST [Catalytic activity/Vol] 16 U/L Normal 13-35 [facility] Comment on above: Order Comment: Speci men Type: BLOOD SPECIMEN Ordering Facility: [facility] Address: [address] [place] [address] Performed By: #### 1 7792-3, 42384-3, 10225-2, 79856-3, 01709-0, 65553-7, 77274-8, 18618-8, ANAIFR, 64583-1 #### [facility] CLIA [id number] [address] [place] [address] [place] Bilirubin [Mass/Vol] 0.2 mg/dL Normal 0.2-1.3 [facility] Comment on above: Order Comment: Speci men Type: BLOOD SPECIMEN Ordering Facility: [facility] Address: [address] [place] [address] Performed By: #### 1 7792-3, 60114-4, 41596-3, 26770-5, 61422-0, 68905-0, 97951-5, 32809-6, ANAIFR, 18135-0 #### [facility] CLIA [id number] [facility] [place] [address] [place] Calcium [Mass/Vol] 9.9 mg/dL Normal 8.5-10.2 [facility] Comment on above: Order Comment: Speci men Type: BLOOD SPECIMEN Ordering Facility: [facility] Address: [address] [place] [address] Performed By: #### 1 7792-3, 56803-1, 09751-0, 98592-2, 99457-0, 69606-0, 91221-5, 67055-3, ANAIFR, 65349-8 #### [facility] CLIA [id number] [address] [place] [address] [place] Chloride [Moles/Vol] 103 mmol/L Normal 97-105 [facility] Comment on above: Order Comment: Speci men Type: BLOOD SPECIMEN Ordering Facility: [facility] Address: [address] [place] [address] Performed By: #### 1 7792-3, 69543-8, 25096-7, 41325-4, 69552-0, 00851-1, 57102-3, 59655-1, ANAIFR, 20463-6 #### [facility] CLIA [id number] [address] [place] [address] [place] CO2 [Moles/Vol] 29 mmol/L Normal 22-30 [facility] Comment on above: Order Comment: Specdorothy orourke Type: BLOOD SPECIMEN Ordering Facility: [facility] Address: [address] [place] [address] Performed By: #### 1 7792-3, 37635-8, 92573-0, 23601-5, 46989-2, 26412-8, 51841-7, 61714-6, ANAIFR, 88322-8 #### [facility] CLIA [id number] [address] [place] [address] [place] Creatinine [Mass/Vol] 0.82 mg/dL Normal 0.58-0.96 [facility] Comment on above: Order Comment: Speci men Type: BLOOD SPECIMEN Ordering Facility: [facility] Address: [address] [place] [address] Performed By: #### 1 7792-3, 22098-3, 91671-7, 36573-1, 06842-9, 91936-7, 79427-5, 35396-0, ANAIFR, 46208-0 #### [facility] CLIA [id number] [address] [place] [address] [place] ESTIMATED GLOMERULAR FILTRATION RATE 83 mL/min/1.73m??? Normal >=60 [facility] Comment on above: Order Comment: Speci men Type: BLOOD SPECIMEN Ordering Facility: [facility] Address: [address] [place] [address] Result Comment: Kelly mated Glomerular Filtration Rate (eGFR) is calculated using the 2020 CKD-EPI creatinine equation. This equation utilizes serum creatinine, sex, and age as parameters. The creatinine assay has traceable calibration to isotope dilution-mass spectrometry. Refer to KDIGO guidelines for clinical interpretation. In patients with unstable renal function, e.g. those with acute kidney injury, the eGFR may not accurately reflect actual GFR. Performed By: #### 1 7792-3, 33323-0, 78493-9, 77737-5, 20202-7, 83060-9, 34257-9, 23160-4, ANAIFR, 06419-4 #### [facility] CLIA [id number] [address] [place] [address] [place] Glucose [Mass/Vol] 101 mg/dL High 74-99 [facility] Comment on above: Order Comment: Speci men Type: BLOOD SPECIMEN Ordering Facility: [facility] Address: [place] [address] Result Comment: The [place] Diabetes Association (ADA) provides guidance for cutoff values for fasting glucose and random glucose. The ADA defines fasting as no caloric intake for at least 8 hours. Fasting plasma glucose results between 100 to 125 mg/dL indicate increased risk for diabetes (prediabetes). Fasting plasma glucose results greater than or equal to 126 mg/dL meet the criteria for diagnosis of diabetes. In the absence of unequivocal hyperglycemia, results should be confirmed by repeat testing. In a patient with classic symptoms of hyperglycemia or hyperglycemic crisis, random plasma glucose results greater than or equal to 200 mg/dL meet the criteria for diagnosis of diabetes. Reference: Standards of Medical Care in Diabetes 2016, [place] Diabetes Association. Diabetes Care. 2016.39(Suppl 1). Performed By: #### 1 7792-3, 15186-3, 23943-2, 29146-3, 17503-5, 93984-2, 91023-0, 29097-1, ANAIFR, 96949-6 #### [facility] CLIA [id number] [address] [place] [address] [place] Potassium [Moles/Vol] 4.3 mmol/L Normal 3.7-5.1 [facility] Comment on above: Order Comment: Robi men Type: BLOOD SPECIMEN Ordering Facility: [facility] Address: [address] [place] [address] Performed By: #### 1 7792-3, 21986-5, 62633-4, 20993-6, 12918-0, 15599-7, 44424-2, 07082-8, ANAIFR, 50719-2 #### [facility] CLIA [id number] [address] [place] [address] [place] Protein [Mass/Vol] 7.2 g/dL Normal 6.3-8.0 [facility] Comment on above: Order Comment: Speci men Type: BLOOD SPECIMEN Ordering Facility: [facility] Address: [address] [place] [address] Performed By: #### 1 7792-3, 33792-4, 65957-9, 92535-1, 61924-2, 16057-3, 01264-5, 24824-6, ANAIFR, 12670-1 #### [facility] CLIA [id number] [address] [place] [address] [place] Sodium [Moles/Vol] 142 mmol/L Normal 136-144 [facility] Comment on above: Order Comment: Speci men Type: BLOOD SPECIMEN Ordering Facility: [facility] Address: [address] [place] [address] Performed By: #### 1 7792-3, 91203-4, 32459-3, 37853-2, 32600-3, 20408-4, 95103-7, 23804-0, ANAIFR, 30477-0 #### [facility] CLIA [id number] [facility] [place] [address] [place] Urea nitrogen [Mass/Vol] 16 mg/dL Normal 7-21 [facility] Comment on above: Order Comment: Speci men Type: BLOOD SPECIMEN Ordering Facility: [facility] Address: [address] Performed By: #### 1 7792-3, 16956-0, 78458-4, 33177-5, 66418-1, 93226-2, 28115-6, 95379-9, ANAIFR, 08827-9 #### [facility] CLIA [id number] [address] [place] [address] [place] Cyclic citrullinated peptide IgG Qnon 10-31-2022 CCP ANTIBODY IGG QUALITATIVE Negative Normal Negative [facility] Comment on above: Order Comment: Speci men Type: BLOOD SPECIMEN Ordering Facility: [facility] Address: [address] [place] [address] Performed By: #### 1 7792-3, 71712-8, 55192-2, 30930-2, 13279-4, 69662-7, 25269-0, 11352-1, ANAIFR, 98859-6 #### [facility] CLIA [id number] [facility] [address] [place] MISBAH Jo1 Ab Ser-aCncon 2022 Edith-1 extractable nuclear Ab Qn (S) <0.2 Normal <1.0 [facility] Comment on above: Order Comment: Speci men Type: BLOOD SPECIMEN Ordering Facility: [facility] Address: [address] [place] [address] Performed By: #### 1 7792-3, 52002-0, 17450-0, 90324-7, 25698-3, 64709-7, 88881-5, 67652-0, ANAIFR, 29321-3 #### [facility] CLIA [id number] [address] [place] [address] OF [place] MISBAH SUPERVISOR ENGINE REPAIR Ab Ser-aCncon 2022 Ribonucleoprotein extractable nuclear Ab Qn (S) <0.2 Normal <1.0 [facility] Comment on above: Order Comment: Speci men Type: BLOOD SPECIMEN Ordering Facility: [facility] Address: [address] [place] [address] Performed By: #### 1 7792-3, 24514-8, 68284-5, 61747-4, 59868-3, 38741-3, 86703-6, 97418-1, ANAIFR, 60142-6 #### [facility] CLIA [id number] [facility] [address] OF [place] MISBA[place] SM IgG Ser-aCncon 2022 Moran extractable nuclear IgG Qn (S) <0.2 Normal <1.0 [facility] Comment on above: Order Comment: Speci men Type: BLOOD SPECIMEN Ordering Facility: [facility] Address: [address] [place] [address] Performed By: #### 1 7792-3, 95463-3, 83235-4, 56807-9, 54398-2, 21736-7, 45849-7, 77243-0, ANAIFR, 35188-5 #### [facility] CLIA [id number] [address] [place] [address] OF [place] MISBAH SS-A Ab Ser-aCncon 10-31 Sjogrens syndrome-A extractable nuclear Ab Qn (S) 0.3 AI Normal <1.0 [facility] Comment on above: Order Comment: Speci sharad Type: BLOOD SPECIMEN Ordering Facility: [facility] Address: [address] [place] [address] Result Comment: Test Methodology: Multiplex flow immunoassay. Performed By: #### 1 7792-3, 73216-4, 98625-0, 97242-0, 11503-0, 06796-1, 84019-2, 01143-9, ANAIFR, 68093-8 #### [facility] CLIA [id number] [address] [place] [address] [place] MISBAH SS-B Ab Ser-aCncon 10-31 Sjogrens syndrome-B extractable nuclear Ab Qn (S) <0.2 Normal <1.0 [facility] Comment on above: Order Comment: Speci sharad Type: BLOOD SPECIMEN Ordering Facility: [facility] Address: [address] [place] [address] Result Comment: Anti -SSB (anti-La) antibody is used as an aid in diagnosis of a variety of systemic autoimmune diseases, especially for Sjogren's syndrome and systemic lupus erythematosus. Clinical correlation is required. Test Methodology: Multiplex flow immunoassay. Performed By: #### 1 7792-3, 39035-0, 26911-1, 60514-4, 28371-9, 84000-1, 06659-9, 43604-8, ANAIFR, 38576-4 #### [facility] CLIA [id number] [address] [place] ESR Westergren method (Bld) [Velocity]on 10-31-2022 ESR (Bld) [Velocity] 13 mm/h 0 - 20 mm/hr Cl [facility] ESR (Bld) [Velocity] 13 mm/h Normal 0-[facility] Comment on above: Order Comment: Specdorothy orourke Type: BLOOD SPECIMEN Ordering Facility: [facility] Address: [address] [place] [address] Performed By: #### 1 7792-3, 76146-4, 52544-0, 63097-2, 25998-7, 21321-4, 32835-2, 00123-6, ANAIFR, 64386-0 #### [facility] CLIA [id number] [facility] [place] [address] [place] G-6-PD QUANTITATIVEon 2022 G6PD (RBC) [Catalytic activity/Mass] 12.7 U/g Hb Normal 9.8-15.5 [facility] Comment on above: Order Comment: Dieudonne orourke Type: BLOOD SPECIMEN Ordering Facility: [facility] Address: [address] [place] [address] Result Comment: This test was developed and its performance characteristics determined by [facility]'s [facility] [place] ([facility]). It has not been cleared or approved by the FDA. [facility] is regulated under CLIA as qualified to perform high-complexity testing. This test is used for clinical purposes. It should not be regarded as investigational or for research. Performed By: #### 1 7792-3, 12059-9, 58520-2, 53173-7, 81009-0, 14277-3, 92840-9, 62181-1, ANAIFR, 40485-0 #### [facility] CLIA [id number] [address] [place] [address] [place] Edith-1 extractable nuclear Ab Qn (S)on 10-31-2022 EDITH 1 ANTIBODY QUAL Negative Normal Negative [facility] Comment on above: Order Comment: Speci men Type: BLOOD SPECIMEN Ordering Facility: [facility] Address: [address] [place] [address] Result Comment: Anti -EDITH-1 antibody is used as an aid in diagnosis of polymyositis and dermatomyositis especially with pulmonary involvement. A negative result cannot rule out polymyositis or dermatomyositis. Clinical correlation is required. Test Methodology: Multiplex flow immunoassay. Performed By: #### 1 7792-3, 60516-5, 67533-6, 69460-4, 85342-8, 18300-6, 54651-4, 11519-2, ANAIFR, 05755-0 #### [facility] CLIA [id number] [address] [place] [address] [place] PROTEIN CREATININE RATIOon 0 10-31-2022 Protein/Creatinine (U) [Mass ratio] 0.09 mg/mg <0.15 mg/mg [facility] PTH-Intact SerPl-mCncon 05-0 Parathyrin.intact [Mass/Vol] 71 pg/mL High 15-65 [facility] Comment on above: Order Comment: Speci men Type: BLOOD SPECIMEN Ordering Facility: [facility] Address: [address] [place] [address] Performed By: #### 1 7792-3, 03402-0, 35996-9, 94285-9, 47028-7, 54038-6, 96043-3, 33953-8, ANAIFR, 68136-1 #### [facility] CLIA [id number] [address] [place] [address] [place] Prot/Creat Uron 10-31-2022 Protein/Creatinine (U) [Mass ratio] 0.09 mg/mg Normal <0.15 [facility] Comment on above: Order Comment: Dieudonne orourke Type: BLOOD SPECIMEN Ordering Facility: [facility] Address: [place] [address] Result Comment: Adul t Proteinuria Categories: <0.15 mg/mg is considered normal to mildly increased 0.15 - 0.50 mg/mg is considered moderately increased >0.50 mg/mg is considered severely increased KDIGO. (2013). KDIGO 2012 Clinical Practice Guideline for the Evaluation and Management of Chronic Kidney Disease. Official Journal of the International Society of Nephrology, 3(1), 1-150. Performed By: #### 1 7792-3, 99386-7, 67672-9, 30029-7, 38591-4, 30580-5, 49202-3, 64989-1, ANAIFR, 92423-5 #### [facility] CLIA [id number] [facility] [place] [address] [place] Protein/Creatinine (U) [Mass ratio]on 10-31-2022 Creatinine (U) [Mass/Vol] 161.5 mg/dL 20.0 - 300.0 mg/dL [facility] Protein (U) [Mass/Vol] 15 mg/dL 0 - 20 mg/dL [facility] Creatinine (U) [Mass/Vol] 161.5 mg/dL Normal 20.0-300.0 [facility] Comment on above: Order Comment: Dieudonne orourke Type: BLOOD SPECIMEN Ordering Facility: [facility] Address: [place] [address] Performed By: #### 1 7792-3, 55429-1, 57336-8, 93623-1, 94815-6, 60513-5, 25321-4, 14285-8, ANAIFR, 92696-7 #### [facility] CLIA [id number] [address] [place] [id number] [place] Protein (U) [Mass/Vol] 15 mg/dL Normal 0-20 [facility] Comment on above: Order Comment: Dieudonne orourke Type: BLOOD SPECIMEN Ordering Facility: [facility] Address: [address] [place] [address] Performed By: #### 1 7792-3, 36864-2, 04185-6, 88005-1, 72958-3, 08483-9, 71068-9, 64034-5, ANAIFR, 85881-6 #### [facility] [place] [facility] CLIA [id number] [address] [place] [address] [place] Rheumatoid fact SerPl-aCncon 10-31-2022 Rheumatoid factor Qn [IU]/mL Normal <16 [facility] Comment on above: Order Comment: Speci men Type: BLOOD SPECIMEN Ordering Facility: [facility] Address: [address] [place] [address] Performed By: #### 1 7792-3, 01394-9, 16305-9, 34885-8, 15228-3, 90715-9, 36173-9, 38577-7, ANAIFR, 54715-4 #### [facility] CLIA [id number] [address] [place] [address] [place] Ribonucleoprotein extractabl e nuclear Ab Qn (S)on 10-31-2022 ANTI-SUPERVISOR ENGINE REPAIR QUAL Negative Normal Negative [facility] Comment on above: Order Comment: Speci men Type: BLOOD SPECIMEN Ordering Facility: [facility] Address: [address] [place] [address] Performed By: #### 1 7792-3, 45168-2, 65655-5, 56935-1, 11776-2, 41464-3, 03299-6, 99477-0, ANAIFR, 41342-3 #### [facility] CLIA [id number] [address] [place] [address] [place] RIBOSOMAL SUPERVISOR ENGINE REPAIR QUAL Negative Normal Negative [facility] Comment on above: Order Comment: Speci men Type: BLOOD SPECIMEN Ordering Facility: [facility] Address: [address] [place], [place] [address] Result Comment: Anti -Ribosomal RNA (Ribosomal P) antibody is used as an aid in diagnosis of systemic autoimmune diseases especially systemic lupus erythematosus and mixed connective tissue disease. Cross-reactivity with Anti-moran antibody is not uncommon. Clinical correlation is required. Test Methodology: Multiplex flow immunoassay. Performed By: #### 1 7792-3, 45782-1, 24156-1, 87801-1, 47500-6, 10681-7, 16688-5, 11491-7, ANAIFR, 07464-7 #### [facility] CLIA [id number] [address] [place] [address] [place] SCL-70 extractable nuclear I gG IA Qn (S)on 10-31-2022 SCLERODERMA AB QUAL Negative Normal Negative [facility] Comment on above: Order Comment: Speci men Type: BLOOD SPECIMEN Ordering Facility: [facility] Address: [address] [place] [address] Performed By: #### 1 7792-3, 62974-8, 68844-5, 07988-1, 05605-7, 17651-5, 58681-9, 99301-9, ANAIFR, 83914-8 #### [facility] CLIA [id number] [address] [place] [address] [place] SCLERODERMA IGG AB <0.2 Normal <1.0 [facility] [facility] Comment on above: Order Comment: Speci men Type: BLOOD SPECIMEN Ordering Facility: [facility] Address: [address] [place] [address] Result Comment: Scl- 70/Scleroderma antibody test is used as an aid in diagnosis of systemic sclerosis especially the diffuse cutaneous form. A negative result cannot rule out systemic sclerosis. The final interpretation should consider clinical picture and other test results such as anti-centromere antibody. Test Methodology: Multiplex flow immunoassay. Performed By: #### 1 7792-3, 52692-6, 45183-3, 36169-3, 89860-6, 73583-4, 19203-4, 51662-4, ANAIFR, 82465-6 #### [facility] CLIA [id number] [address] [place] [place] [address] OF [place] Sjogrens syndrome-A extracta ble nuclear Ab Qn (S)on 10-31-2022 SSA ANTIBODY QUAL Negative Normal Negative [facility] Comment on above: Order Comment: Speci men Type: BLOOD SPECIMEN Ordering Facility: [facility] Address: [address] [place] [address] Performed By: #### 1 7792-3, 67162-4, 04254-8, 17321-0, 61852-0, 03669-6, 70243-1, 39777-7, ANAIFR, 47537-8 #### [facility] CLIA [id number] [address] [place] [address] OF [place] Sjogrens syndrome-B extracta ble nuclear Ab Qn (S)on 10-31-2022 SSB ANTIBODY QUAL Negative Normal Negative [facility] Comment on above: Order Comment: Speci men Type: BLOOD SPECIMEN Ordering Facility: [facility] Address: [address] [place] [address] Performed By: #### 1 7792-3, 77726-3, 56223-4, 35836-0, 92994-6, 02838-9, 28144-3, 31385-1, ANAIFR, 68436-4 #### [facility] CLIA [id number] [address] [place] [address] OF [place] Moran extractable nuclear Ig G Qn (S)on 10-31-2022 SM ANTIBODY QUAL Negative Normal Negative [facility] Comment on above: Order Comment: Speci men Type: BLOOD SPECIMEN Ordering Facility: [facility] Address: [address] [place] [address] Result Comment: Anti -Sm (Moran) antibody is used as an aid in diagnosis of systemic lupus erythematosus and its presence is associated with renal disease. A negative result cannot rule out systemic lupus erythematosus. Clinical correlation is required. Test Methodology: Multiplex flow immunoassay. Performed By: #### 1 7792-3, 78239-2, 77168-9, 74471-6, 61301-2, 25809-6, 18968-0, 85262-3, ANAIFR, 10427-1 #### [facility] CLIA [id number] [address] [place] [address] [place] THYROGLOBULIN ABon Thyroglobulin Ab Qn [IU]/mL Normal <4.0 [facility] Comment on above: Order Comment: Speci men Type: BLOOD SPECIMEN Ordering Facility: [facility] Address: [address] [place] [address] Result Comment: The Thyroglobulin Antibody test was performed using the Moneylibel DXI paramagnetic particle chemiluminescent immunoassay method. Results obtained with different assay methods or kits cannot be used interchangeably. Performed By: #### 1 7792-3, 89819-7, 89766-6, 52392-8, 64851-8, 28911-6, 47794-2, 11460-6, ANAIFR, 68380-7 #### [facility] CLIA [id number] [address] [place] [address] THYROID PEROXIDASE ANTIBODY BLOODon 10-31-2022 TPO Ab Qn <5.6 IU/mL [facility] TPO Ab Qn [IU]/mL Normal <5.6 [facility] Comment on above: Order Comment: Dieudonne orourke Type: BLOOD SPECIMEN Ordering Facility: [facility] Address: [address] [place] [address] Result Comment: Thyr oid Peroxidase Antibody test is used as an aid in diagnosis of autoimmune thyroid disease. Clinical correlation is required. Performed By: #### M ICRO #### [facility] CLIA [id number] [address] [place] [address] [place] THYROID STIMULATING IMMUNOGL OBULIN BLOODon 10-31-2022 Thyroid stimulating immunoglobulins actual/normal (S) [Relative mass conc] % Normal <0.55 [facility] Comment on above: Order Comment: Robi sharad Type: BLOOD SPECIMEN Ordering Facility: [facility] Address: [address] [place], [place] [address] Result Comment: Thyr oid Stimulating Immunoglobulin test is used as an aid in diagnosis of autoimmune hyperthyroidism especially in patients with Grave's orbitopathy and dermopathy. Low positive TSH receptor stimulating antibody levels may occasionally be found in patients with autoimmune hypothyroidism. Clinical correlation is required. Performed By: #### 1 7792-3, 40849-8, 55792-3, 24859-3, 54674-2, 07311-5, 76399-7, 16082-1, ANAIFR, 30669-1 #### [facility] CLIA [id number] [address] [place] [address] [place] TSI QUALITATIVE Negative Normal Negative [facility] Comment on above: Order Comment: Speci men Type: BLOOD SPECIMEN Ordering Facility: [facility] Address: [address] [address] Performed By: #### 1 7792-3, 51479-5, 30288-9, 35103-2, 41963-8, 61553-2, 47813-0, 20618-4, ANAIFR, 74857-9 #### [facility] CLIA [id number] [address] [place] [address] [place] cCP IgG SerPl-aCncon 023 Cyclic citrullinated peptide IgG Qn <15 Normal <20 [facility] Comment on above: Order Comment: Speci men Type: BLOOD SPECIMEN Ordering Facility: [facility] Address: [address] [address] Performed By: #### 1 7792-3, 41828-9, 76664-5, 09617-8, 54167-6, 61839-0, 90626-1, 60949-0, ANAIFR, 00104-6 #### [facility] CLIA [id number] [address] [place] [address] [place] dsDNA Ab Ser IA-aCncon 10-31 DNA double strand Ab IA Qn (S) <12 Normal <30 [facility] Comment on above: Order Comment: Speci men Type: BLOOD SPECIMEN Ordering Facility: [facility] Address: [address] [place] [address] Result Comment: Nega tive for ds DNA Antibodies. <30 IU/mL Negative 30-74 IU/mL Equivocal >74 IU/mL Positive Performed By: #### 1 7792-3, 88596-4, 09482-6, 30713-2, 16560-5, 13148-1, 26537-9, 77193-1, ANAIFR, 00840-9 #### [facility] CLIA [id number] [address] [facility] [address] STATES OF [place] XR HAND GATO MIN 3Von 023 XR HAND GATO MIN 3V EXAMINATION: XR HAND GATO MIN 3V HISTORY: Pain in right hand COMPARISON: No relevant comparison available. FINDINGS: RIGHT FINDINGS: BONES: No acute fracture or dislocation. Degenerative changes with joint space narrowing and marginal osteophyte formation most significant first carpometacarpal joint SOFT TISSUES: Negative. No visible soft tissue swelling. OTHER: Negative. LEFT FINDINGS: BONES: No acute fracture or dislocation. Minimal degenerative changes with marginal osteophyte relation SOFT TISSUES: Negative. No visible soft tissue swelling. OTHER: Negative. IMPRESSION: RIGHT CONCLUSION: Degenerative changes most significant first carpometacarpal joint LEFT CONCLUSION: Minimal degenerative changes Electronically authenticated by: NEW GARCIA Date: 2022-09-24 09:02 Normal [facility] CBC AUTO DIFFon 01-09-2022 BASO # 0.0 103/ul Normal 0.0-0.1 [facility] Comment on above: Performed By: #### C BC #### [facility] [address] [address] [address] Marisela Moe Basophils/100 WBC (Bld) 0.6 % Normal 0.2-2.0 [facility] Comment on above: Performed By: #### C BC #### [facility] [address] [address] [address] Marisela Moe EO # 0.2 103/ul Normal 0.0-0.7 [facility] Comment on above: Performed By: #### C BC #### [facility] [address] [place] [address] Dr. Marisela Moe Eosinophils/100 WBC (Bld) 3.3 % Normal 0.9-7.0 [facility] Comment on above: Performed By: #### C BC #### [facility] [address] [place] [address] Dr. Marisela Moe Erythrocyte distribution width (RBC) [Ratio] 12.7 % Normal 11.0-15.0 [facility] Comment on above: Performed By: #### C BC #### [facility] [address] [place] [address] Dr. Marisela Moe Hematocrit (Bld) [Volume fraction] 37.7 % Normal 36.0-48.0 [facility] Comment on above: Performed By: #### C BC #### [facility] [address] [place] [address] Dr. Marisela Moe Hemoglobin (Bld) [Mass/Vol] 12.5 g/dL Normal 12.0-16.0 [facility] Comment on above: Performed By: #### C BC #### [facility] [address] [place] [address] Dr. Marisela Moe IG # 0.02 10e3/ul Normal 0.00-0.03 [facility] Comment on above: Performed By: #### C BC #### [facility] [address] [place] [address] Dr. Marisela Moe IG % 0.3 % Normal 0.0-0.5 [facility] Comment on above: Performed By: #### C BC #### [facility] [address] [place] [address] Dr. Marisela Moe LYMPH # 1.8 103/ul Normal 1.2-3.8 [facility] Comment on above: Performed By: #### C BC #### [facility] [address] [place] [address] Dr. Marisela Moe Lymphocytes/100 WBC (Bld) 27.1 % Normal 20.5-60.0 [facility] Comment on above: Performed By: #### C BC #### [facility] [address] [place] [address] Dr. Marisela Moe MANUAL DIFF REQ NO Normal [facility] Comment on above: Performed By: #### C BC #### [facility] [address] [place] [address] Dr. Marisela Moe MCH (RBC) [Entitic mass] 29.3 pg Normal 26.7-34.0 [facility] Comment on above: Performed By: #### C BC #### [facility] [address] [place] [address] Dr. Marisela Moe MCHC (RBC) [Mass/Vol] 33.2 g/dL Normal 29.9-35.2 [facility] Comment on above: Performed By: #### C BC #### [facility] [address] [place] [address] Dr. Marisela Moe MCV (RBC) [Entitic vol] 88.3 fL Normal 81.0-99.0 [facility] Comment on above: Performed By: #### C BC #### [facility] [address] [place] [address] Dr. Marisela Moe MONO # 0.4 103/ul Normal 0.3-0.8 [facility] Comment on above: Performed By: #### C BC #### [facility] [address] [place] [address] Dr. Marisela Moe Monocytes/100 WBC (Bld) 6.4 % Normal 1.7-12.0 [facility] Comment on above: Performed By: #### C BC #### [facility] [address] [place] [address] Dr. Marisela Moe NEUT # 4.1 103/ul Normal 1.4-6.5 [facility] Comment on above: Performed By: #### C BC #### [facility] [address] [place] [address] Dr. Marisela Moe Neutrophils/100 WBC (Bld) 62.3 % Normal 43.0-75.0 [facility] Comment on above: Performed By: #### C BC #### [facility] [address] [place] [address] Dr. Marisela Moe Platelet mean volume (Bld) [Entitic vol] 9.8 fL Normal 9.5-13.5 [facility] Comment on above: Performed By: #### C BC #### [facility] [address] [place] [address] Dr. Marisela Moe PLT 281 103/ul Normal 150-450 [facility] Comment on above: Performed By: #### C BC #### [facility] [address] [place] [address] Dr. Marisela Moe RBC 4.27 106/ul Normal 4.20-5.40 [facility] Comment on above: Performed By: #### C BC #### [facility] [address] [place] [address] Dr. Marisela Moe WBC 6.6 103/ul Normal 4.0-11.0 [facility] Comment on above: Performed By: #### C BC #### [facility] [address] [place] [address] Dr. Marisela Moe GLYCOHEMOGLOBIN A1Con 2021 ADA RECOMMENDATION SEE BELOW Normal [facility] Comment on above: Result Comment: ADA RECOMMENDED LIMIT 4.0 - 6.0 ADA THERAPEUTIC TARGET < 7.0 ACTION SUGGESTED > 7.0 Performed By: #### A 1C #### [facility] [address] [place] [address] Dr. Marisela Moe Glucose [Mass/Vol] 120 mg/dL Normal [facility] Comment on above: Performed By: #### A 1C #### [facility] [address] [place] [address] Dr. Marisela Moe HbA1c (Bld) [Mass fraction] 5.8 % Normal 4.5-6.2 [facility] Comment on above: Performed By: #### A 1C #### [facility] [address] [place] [address] Dr. Marisela Moe LIPID PROFILEon 01-09-2022 CHOL-HDL RATIO NORM SEE BELOW Normal [facility] Comment on above: Result Comment: 3.3 - 4.4 LOW RISK 4.4 - 7.1 AVERAGE RISK 7.1 - 11.0 MODERATE RISK >11.0 HIGH RISK Performed By: #### L IPID, TSH, CMP #### [facility] [address] [address] [address] Marisela Moe Cholesterol [Mass/Vol] 216 mg/dL Critically high <=200 [facility] Comment on above: Performed By: #### L IPID, TSH, CMP #### [facility] [address] [address] [address] Marisela Moe Cholesterol in HDL [Mass/Vol] 44 mg/dL Normal 40-60 [facility] Comment on above: Performed By: #### L IPID, TSH, CMP #### [facility] [address] [address] [address] Marisela Moe Cholesterol in LDL [Mass/Vol] 146.2 mg/dL Normal [facility] Comment on above: Performed By: #### L IPID, TSH, CMP #### [facility] [address] [place] [address] Dr. Marisela Moe Cholesterol.total/Cho lesterol in HDL [Mass ratio] 4.9 {ratio} Normal [facility] Comment on above: Performed By: #### L IPID, TSH, CMP #### [facility] [address] [place] [address] Dr. Marisela Moe HDL NORMAL > or = 60 mg/dl - LO W CARDIOVASCULAR RISK <40 mg/dl - HIGH CARDIOVASCULAR RISK Normal [facility] Comment on above: Performed By: #### L IPID, TSH, CMP #### [facility] [address] [address] [address] Marisela Moe LDL CALC NORMAL SEE BELOW Normal [facility] Comment on above: Result Comment: <100 mg/dl OPTIMAL 100 - 129 mg/dl NEAR OR ABOVE OPTIMAL 130 - 159 mg/dl BORDERLINE HIGH 160 - 189 mg/dl HIGH >190 mg/dl VERY HIGH Performed By: #### L IPID, TSH, CMP #### [facility] [address] [address] [address] Marisela Moe Triglyceride [Mass/Vol] 129 mg/dL Normal <=150 [facility] Comment on above: Performed By: #### L IPID, TSH, CMP #### [facility] [address] [address] [address] Marisela Moe VLDL CALC 25.8 mg/dL Normal [facility] Comment on above: Performed By: #### L IPID, TSH, CMP #### [facility] [address] [place] [address] Dr. Marisela Moe PROF 14(COMP METB)on 022 Albumin [Mass/Vol] 3.8 g/dL Normal 3.4-5.[address] [facility] Comment on above: Performed By: #### L IPID, TSH, CMP #### [facility] [address] [place] [address] Dr. Marisela Moe Albumin/Globulin [Mass ratio] 1.1 {ratio} Normal [facility] Comment on above: Performed By: #### L IPID, TSH, CMP #### [facility] [address] [place] [address] Dr. Marisela Moe ALP [Catalytic activity/Vol] 64 U/L Normal 46-116 [facility] Comment on above: Performed By: #### L IPID, TSH, CMP #### [facility] [address] [place] [address] Dr. Marisela Moe ALT [Catalytic activity/Vol] 23 U/L Normal 14-59 [facility] Comment on above: Performed By: #### L IPID, TSH, CMP #### [facility] [address] [place] [address] Dr. Marisela Moe Anion gap [Moles/Vol] 11.2 mmol/L Normal [facility] Comment on above: Performed By: #### L IPID, TSH, CMP #### [facility] [address] [place] [address] Dr. Marisela Moe AST [Catalytic activity/Vol] 16 U/L Normal 15-37 [facility] Comment on above: Performed By: #### L IPID, TSH, CMP #### [facility] [address] [place] [address] Dr. Marisela Moe Bilirubin [Mass/Vol] 0.3 mg/dL Normal 0.2-1.0 [facility] Comment on above: Performed By: #### L IPID, TSH, CMP #### [facility] [address] [place] [address] Dr. Marisela Moe Calcium [Mass/Vol] 9.1 mg/dL Normal 8.5-10.[address] [facility] Comment on above: Performed By: #### L IPID, TSH, CMP #### [facility] [address] [address] [address] Marisela Moe Chloride [Moles/Vol] 104 mmol/L Normal 98-107 [facility] Comment on above: Performed By: #### L IPID, TSH, CMP #### [facility] [address] [place] [address] Dr. Marisela Moe CO2 [Moles/Vol] 30.6 mmol/L Normal 21.0-32.0 [facility] Comment on above: Performed By: #### L IPID, TSH, CMP #### [facility] [address] [place] [address] Dr. Marisela Moe Creatinine [Mass/Vol] 0.83 mg/dL Normal 0.55-1.02 [facility] Comment on above: Performed By: #### L IPID, TSH, CMP #### [facility] [address] [place] [address] Dr. Marisela Moe EGFR-AF LUXEMBOURGER >60 Normal >=60 [facility] Comment on above: Performed By: #### L IPID, TSH, CMP #### [facility] [address] [place] [address] Dr. Marisela Moe EGFR-NON AF LUXEMBOURGER >60 Normal >=60 [facility] Comment on above: Performed By: #### L IPID, TSH, CMP #### [facility] [address] [place] [address] Dr. Marisela Meo Globulin (S) [Mass/Vol] 3.4 g/dL Normal [facility] Comment on above: Performed By: #### L IPID, TSH, CMP #### [facility] [address] [place] [address] Dr. Marisela Moe Glucose [Mass/Vol] 107 mg/dL Critically high 74-106 [facility] Comment on above: Performed By: #### L IPID, TSH, CMP #### [facility] [address] [address] [address] Marisela Moe Potassium [Moles/Vol] 3.8 mmol/L Normal 3.5-5.1 [facility] Comment on above: Performed By: #### L IPID, TSH, CMP #### [facility] [address] [address] [address] Marisela Moe Protein [Mass/Vol] 7.2 g/dL Normal 6.4-8.2 [facility] Comment on above: Performed By: #### L IPID, TSH, CMP #### [facility] [address] [address] [address] Marisela Moe Sodium [Moles/Vol] 142 mmol/L Normal 136-145 [facility] Comment on above: Performed By: #### L IPID, TSH, CMP #### [facility] [address] [address] [address] Marisela Moe Urea nitrogen [Mass/Vol] 20.0 mg/dL Critically high 7.0-18.0 [facility] Comment on above: Performed By: #### L IPID, TSH, CMP #### [facility] [address] [address] [address] Marisela Moe Urea nitrogen/Creatinine [Mass ratio] 24.1 mg/mg Normal [facility] Comment on above: Performed By: #### L IPID, TSH, CMP #### [facility] [address] [address] [address] Marisela Moe TSHon 01-09-2022 TSH 1.046 uIU/mL Normal 0.358-3.740 [facility] Comment on above: Performed By: #### L IPID, TSH, CMP #### [facility] [address] [address] [address] Marisela Moe Comprehensive Metabolic Empo n 05-13-2021 Albumin [Mass/Vol] 4.2 g/dL Normal 3.2-5.5 [facility] Comment on above: Performed By: #### E BS LIPID, EBS A1C, EBS CMP #### [facility] [address] [place] [address] [place] Albumin/Globulin [Mass ratio] 1.7 {ratio} Normal [facility] Comment on above: Performed By: #### E BS LIPID, EBS A1C, EBS CMP #### [facility] [address] [place] [address] [place] ALP [Catalytic activity/Vol] 56 U/L Normal 32-92 [facility] Comment on above: Performed By: #### E BS LIPID, EBS A1C, EBS CMP #### [facility] [address] ALT [Catalytic activity/Vol] 18 U/L Normal 10-60 [facility] Comment on above: Performed By: #### E BS LIPID, EBS A1C, EBS CMP #### [facility] [address] [place] [address] [place] AST [Catalytic activity/Vol] 21 U/L Normal 10-42 [facility] Comment on above: Performed By: #### E BS LIPID, EBS A1C, EBS CMP #### [facility] [address] [place] [address] [place] Bilirubin [Mass/Vol] 0.6 mg/dL Normal 0.3-1.2 [place] Comment on above: Performed By: #### E BS LIPID, EBS A1C, EBS CMP #### [facility] [address] [place] [address] [place] Calcium [Mass/Vol] 9.9 mg/dL Normal 8.2-10.2 [facility] Comment on above: Performed By: #### E BS LIPID, EBS A1C, EBS CMP #### [facility] [address] [place] [address] [place] Chloride [Moles/Vol] 102 mmol/L Normal 95-114 [place] Comment on above: Performed By: #### E BS LIPID, EBS A1C, EBS CMP #### [facility] [address] [place] [address] [place] CO2 [Moles/Vol] 28.0 mmol/L Normal 22.0-30.0 [facility] Comment on above: Performed By: #### E BS LIPID, EBS A1C, EBS CMP #### [facility] [address] Creatinine [Mass/Vol] 0.86 mg/dL Normal 0.44-1.03 [facility] Comment on above: Performed By: #### E BS LIPID, EBS A1C, EBS CMP #### [facility] [address] Estimated GFR ( Caitlyn > 60 Normal [facility] Comment on above: Result Comment: GFR estimated reference range: According to KDOQI guidelines, <60 ml/min/1.73m2 is sufficient to diagnose a patient with chronic kidney disease. Performed By: #### E BS LIPID, EBS A1C, EBS CMP #### [facility] [address] Estimated GFR (Non- Am > 60 Normal [facility] Comment on above: Performed By: #### E BS LIPID, EBS A1C, EBS CMP #### [facility] [address] [place] [address] [place] Globulin (S) [Mass/Vol] 2.5 g/dL Normal [facility] Comment on above: Performed By: #### E BS LIPID, EBS A1C, EBS CMP #### [facility] [address] [place] [address] [place] Glucose [Mass/Vol] 101 mg/dL High 70-100 [facility] Comment on above: Result Comment: ADA recommended reference range Performed By: #### E BS LIPID, EBS A1C, EBS CMP #### [facility] [address] [place] [address] [place] Potassium [Moles/Vol] 3.8 mmol/L Normal 3.5-5.1 [facility] Comment on above: Performed By: #### E BS LIPID, EBS A1C, EBS CMP #### [facility] [address] [place] [address] [place] Protein [Mass/Vol] 6.7 g/dL Normal 6.1-7.9 [facility] Comment on above: Performed By: #### E BS LIPID, EBS A1C, EBS CMP #### [facility] [address] Sodium [Moles/Vol] 141 mmol/L Normal 136-146 [facility] Comment on above: Performed By: #### E BS LIPID, EBS A1C, EBS CMP #### [facility] [address] [place] [id number] [place] Urea nitrogen [Mass/Vol] 14 mg/dL Normal 9-23 [facility] Comment on above: Performed By: #### E BS LIPID, EBS A1C, EBS CMP #### [facility] [address] EBS A1C with Estimated Avemilee ashleyjessica 05-13-2021 Glucose [Mass/Vol] 117 mg/dL Normal [facility] Comment on above: Result Comment: PERF ORMED BY: [facility] [address] [place] [address] PATHOLOGIST PHARMACEUTICAL PROCESS ENGINEER RADHA RIVERA M.D. Performed By: #### E BS LIPID, EBS A1C, EBS CMP #### [facility] [address] HbA1c (Bld) [Mass fraction] 5.7 % High 4.3-5.6 [facility] Comment on above: Result Comment: Incr eased risk for diabetes: 5.7 - 6.4 diabetes: >6.4 glycemic control for adults with diabetes: <7.0 Performed By: #### E BS LIPID, EBS A1C, EBS CMP #### [facility] [address] [place] [id number] [place] Lipid Profileon 05-13-2021 Cholesterol [Mass/Vol] 227 mg/dL High 140-200 [facility] Comment on above: Result Comment: Chol less than 200 mg/dl low risk Chol 201-239 mg/dl borderline risk Chol 240 mg/dl and greater high risk Performed By: #### E BS LIPID, EBS A1C, EBS CMP #### [facility] [address] [place] [id number] [place] Cholesterol in HDL [Mass/Vol] 40 mg/dL Normal 35-85 [facility] Comment on above: Result Comment: HDL CHOL ATP-III CLASSIFICATION Cardiovascular Risk HDL > or equal to 60 mg/dL LOW HDL < 40 mg/dL HIGH Performed By: #### E BS LIPID, EBS A1C, EBS CMP #### [facility] [address] Cholesterol.total/Cho lesterol in HDL [Mass ratio] 5.7 {ratio} Normal <5.0 [facility] Comment on above: Result Comment: PERF ORMED BY: [facility] [address] [place] [address] PATHOLOGIST PHARMACEUTICAL PROCESS ENGINEER RADHA RIVERA M.D. Performed By: #### E BS LIPID, EBS A1C, EBS CMP #### [facility] [address] LDL Cholesterol,Calculate d 161 mg/dL High 0-100 [facility] Comment on above: Result Comment: LDL ATP III CLASSIFICATION LDL less than 100 mg/dL Optimal LDL 100-129 mg/dL Near or above optimal LDL 130-159 mg/dL Borderline high LDL 160-189 mg/dL High LDL greater than 189 mg/dL Very high Performed By: #### E BS LIPID, EBS A1C, EBS CMP #### [facility] [address] Triglyceride w/Reflex 132 mg/dL Normal 35-149 [facility] Comment on above: Result Comment: TRIG ATP III CLASSIFICATION TRIG less than 150 mg/dL Normal TRIG 150-199 mg/dL Borderline high TRIG 200-500 mg/dL High TRIG greater than 500 mg/dL Very high Standard traceable to the Center for Disease Conrtrol and Prevention (CDC) test method. Performed By: #### E BS LIPID, EBS A1C, EBS CMP #### [facility] [address] VLDL CHOLESTEROL 26 mg/dL Normal [facility] Comment on above: Performed By: #### E BS LIPID, EBS A1C, EBS CMP #### [facility] [address] Vital Signs Date Time Vital Sign Value Performing Clinician Facility 10-09-2023 10:42-0400 Body weight 140.62 kg Delia Rushing MD Work Phone: [facility] 10-09-2023 10:42-0400 Diastolic blood pressure 78 mm[Hg] Delia Rushing MD Work Phone: [facility] 10-09-2023 10:42-0400 Heart rate 66 /min Delia Rushing MD Work Phone: [facility] 10-09-2023 10:42-0400 Systolic blood pressure 148 mm[Hg] Delia Rushing MD Work Phone: [facility] 08-15-2023 08:47-0500 Body height 162.56 cm [facility] 08-15-2023 08:47-0500 Body mass index (BMI) [Ratio] 56.7 kg/m2 [facility] 08-15-2023 08:47-0500 Body weight 149.85 kg [facility] 08-15-2023 08:47-0500 Diastolic blood pressure 84 mm[Hg] [facility] 08-15-2023 08:47-0500 Heart rate 76 /min [facility] 08-15-2023 08:47-0500 Respiratory rate 12 /min [facility] 08-15-2023 08:47-0500 Systolic blood pressure 141 mm[Hg] [facility] 06-26-2023 14:00-0500 Body height 162.56 cm Lito Ball Other [facility] 06-26-2023 14:00-0500 Body mass index (BMI) [Ratio] 56.26 kg/m2 Lito Ball Other [facility] [employer] Other 06-26-2023 14:00-0500 Body weight 148.69 kg Lito Ball Other [facility] [employer] Other 06-26-2023 14:00-0500 Body weight 148.68 kg [facility] 06-26-2023 14:00-0500 Diastolic blood pressure 82 mm[Hg] Lito Ball Other [facility] 06-26-2023 14:00-0500 Respiratory rate 12 /min Lito Ball Other [facility] [employer] Other 06-26-2023 14:00-0500 Systolic blood pressure 141 mm[Hg] Lito Ball Other [facility] 05-25-2023 11:30-0500 Body height 162.56 cm Lito Ball Other [facility] 05-25-2023 11:30-0500 Body mass index (BMI) [Ratio] 54.99 kg/m2 Lito Ball Other [facility] [employer] Other 05-25-2023 11:30-0500 Body weight 145.33 kg Lito Ball Other [facility] 05-25-2023 11:30-0500 Diastolic blood pressure 82 mm[Hg] Lito Ball Other [facility] 05-25-2023 11:30-0500 Systolic blood pressure 142 mm[Hg] Lito Ball Other [facility] 05-04-2023 11:00-0400 Body height 162.56 cm Lito Ball Other [facility] [employer] Other 05-04-2023 11:00-0400 Body mass index (BMI) [Ratio] 54.99 kg/m2 Lito Ball Other [facility] [employer] Other 05-04-2023 11:00-0400 Body weight 145.33 kg Lito Ball Other [facility] [employer] Other 05-04-2023 11:00-0400 Diastolic blood pressure 86 mm[Hg] Lito Ball Other [facility] [employer] Other 05-04-2023 11:00-0400 Respiratory rate 12 /min Lito Ball Other [employer] Other 05-04-2023 11:00-0400 Systolic blood pressure 138 mm[Hg] Lito Ball Other [employer] Other 11-29-2022 11:00-0400 Body height 162.56 cm Lito Ball Other [employer] Other 11-29-2022 11:00-0400 Body mass index (BMI) [Ratio] 52.76 kg/m2 Lito Ball Other [employer] Other 11-29-2022 11:00-0400 Body weight 139.44 kg Lito Ball Other [employer] Other 11-29-2022 11:00-0400 Diastolic blood pressure 81 mm[Hg] Lito Ball Other [employer] Other 11-29-2022 11:00-0400 Respiratory rate 12 /min Lito Ball Other [employer] Other 11-29-2022 11:00-0400 Systolic blood pressure 117 mm[Hg] Lito Ball Other [employer] Other 10-31-2022 08:05-0400 Body height 162.6 cm Delia Rushing MD Work Phone: [facility] 10-31-2022 08:05-0400 Body weight 140.62 kg Delia Rushing MD Work Phone: [facility] 10-31-2022 08:05-0400 Diastolic blood pressure 80 mm[Hg] Delia Rushing MD Work Phone: [facility] 10-31-2022 08:05-0400 Heart rate 83 /min Delia Rushing MD Work Phone: [facility] 10-31-2022 08:05-0400 Systolic blood pressure 142 mm[Hg] Delia Rushing MD Work Phone: [facility] 09-22-2022 12:30-0400 Body height 162.56 cm Lito [employer] Other [employer] Other 09-22-2022 12:30-0400 Body mass index (BMI) [Ratio] 53.48 kg/m2 Lito [employer] Other [employer] Other 09-22-2022 12:30-0400 Body weight 141.34 kg Lito [employer] Other [employer] Other 09-22-2022 12:30-0400 Diastolic blood pressure 88 mm[Hg] [employer]ito [employer] Other [employer] Other 09-22-2022 12:30-0400 Respiratory rate 12 /min Lito [employer] Other [employer] Other 09-22-2022 12:30-0400 Systolic blood pressure 132 mm[Hg] [employer] Other [employer] Other Encounters Encounter Date Encounter Type Care Provider Facility Start: 10-09-2023 End: 10-09-2023 ambulatory LITO MCRAE Facility:[facility] Start: 10-09-2023 End: 10-09-2023 Office outpatient visit 15 minutes Delia Rushing MD Work Phone: Rheumatology Comment on above: Primary Sjogren's sy ndrome (HCC) (Primary Dx); KJ positive; Dry eyes, bilateral; Dry mouth; Keratoconjunctivitis sicca, in Sjogren's syndrome (HCC); Encounter for monitoring of hydroxychloroquine therapy; Pain in both feet; Pain in both knees, unspecified chronicity; Vitamin D deficiency; Hyperparathyroidism due to vitamin D deficiency (HCC); Primary osteoarthritis of hands, bilateral; Primary osteoarthritis involving multiple joints; Encounter to discuss test results; Encounter for medication review and counseling; Counseling on health promotion and disease prevention Start: 09-11-2023 End: 09-11-2023 ambulatory LITO MCRAE Facility:[facility] Start: 08-15-2023 End: 08-15-2023 ambulatory [facility] Work Phone: Start: 08-15-2023 End: 08-15-2023 Patient encounter procedure [facility] Work Phone: Start: 08-13-2023 ambulatory Delia su MD Work Phone: Rheumatology Comment on above: Xrays Start: 07-06-2023 End: 07-06-2023 ambulatory Lito Mcrae Other [employer] Other Start: 07-06-2023 Telephone encounter Lito REYES [facility] Start: 06-26-2023 End: 06-26-2023 ambulatory Lito Mcrae Other [employer] Other Start: 06-26-2023 Office outpatient vi sit 15 minutes Lito Mcrae [facility] Start: 06-26-2023 End: 06-26-2023 Patient encounter procedure [facility] Work Phone: Start: 06-07-2023 End: 06-07-2023 ambulatory Lito Mcrae Other [employer] Other Start: 06-07-2023 Telephone encounter Lito Mcrae [facility] Start: 06-06-2023 End: 06-06-2023 ambulatory Lito Laly Other [employer] Other Start: 06-06-2023 Telephone encounter Lito REYES [facility] Start: 05-31-2023 End: 05-31-2023 ambulatory Lito Mcrae Other [employer] Other Start: 05-31-2023 Telephone encounter Lito REYES [facility] [employer] Start: 05-27-2023 End: 05-27-2023 ambulatory Lito Mcrae Other [employer] Other Start: 05-27-2023 Telephone encounter Lito REYES [facility] Start: 05-25-2023 End: 05-25-2023 ambulatory Lito Mcrae Other [employer] Other Start: 05-25-2023 Office outpatient vi sit 15 minutes Lito Mcrae [facility] Start: 05-25-2023 End: 05-25-2023 Patient encounter procedure [facility] Work Phone: Start: 05-04-2023 End: 05-04-2023 ambulatory Lito Mcrae Other [employer] Other Start: 05-04-2023 Office outpatient vi sit 15 minutes Lito Mcrae [facility] Start: 05-04-2023 Telephone encounter Lito REYES [facility] Start: 03-06-2023 End: 03-06-2023 ambulatory Lito Mcrae Other [employer] Other Start: 03-06-2023 Telephone encounter Lito REYES [facility] Start: 12-24-2022 End: 12-24-2022 ambulatory Lito Mcrae Other [employer] Other Start: 12-24-2022 Telephone encounter Lito Mcrae [facility] Start: 11-29-2022 End: 11-29-2022 ambulatory Lito Mcrae Other [employer] Other Start: 11-29-2022 Office outpatient vi sit 15 minutes Lito Ball [facility] Start: 10-31-2022 End: 11-01-2022 ambulatory DELIA RUSHING Facility:[facility] Start: 10-31-2022 End: 10-31-2022 Patient encounter procedure Delia Rushing MD Work Phone: Rheumatology Comment on above: Primary Sjogren's sy ndrome (HCC) (Primary Dx); Dry eyes, bilateral; Dry mouth; KJ positive; Encounter for monitoring of hydroxychloroquine therapy; Primary osteoarthritis of hands, bilateral; Pain in both hands; Bone spur of posterior portion of right calcaneus; BMI 50.0-59.9, adult (HCC); Counseling on health promotion and disease prevention Start: 09-26-2022 End: 09-26-2022 ambulatory Lito Mcrae Other [employer] Other Start: 09-26-2022 Telephone encounter Lito Mcrae [facility] Start: 09-23-2022 End: 09-24-[address] LITO MCRAE Facility:[facility] Start: 09-22-2022 End: 09-22-2022 ambulatory Lito Mcrae Other [employer] Other Start: 09-22-2022 Encounter for genera l adult medical examination without abnormal findings Lito Mcrae [facility] Start: 09-22-2022 Periodic preventive med est patient 40-64yrs Lito Mcrae [facility] Start: 03-30-2022 Refill Huma landeros MD Work Phone: Rheumatology Comment on above: Refill Request Start: 01-11-2022 Encounter for genera l adult medical examination without abnormal findings DR LITO MCRAE [facility] Start: 01-09-2022 End: 01-10-[address] LITO MCRAE Facility:[facility] Start: 01-09-2022 End: 01-10-2022 Encounter for general adult medical examination without abnormal findings DR LITO MCRAE Facility:[facility] Start: 10-27-2021 Adult health examination Derik alfredo Mcrae Other [employer] Other Procedures Date Procedure Procedure Detail Performing Clinician Start: 06-20-2018 General examination of patient Lito Mcrae Other Start: 01-23-2014 Screening mammography B antonio Mcrae Other Depression screening Gaby Mcrae Other Screening for malign ant neoplasm of breast Lito Mcrae Other Screening for malign ant neoplasm of colon Lito Mcrae Other Plan of Treatment Date Care Activity Detail Author Start: 10-31-2025 DIABETES SCREEN DIABETES SCREEN [facility] Start: 10-31-2025 Diabetes Screening Diabetes Screening [facility] Start: 03-16-2024 DIABETES SCREEN DIABETES SCREEN [facility] Start: 03-02-2024 Influenza vaccination Influenza Vaccine (Season Ended) [facility] Start: 10-09-2023 End: 01-08-2024 25-hydroxyvitamin D3 [Mass/volume] in Serum or Plasma VITAMIN D 25 HYDROXY Lab Routine Vitamin D deficiency Hyperparathyroidism due to vitamin D deficiency (HCC) Expected: 10/09/2023, Expires: 01/08/2024 [facility] Work Phone: Comment on above: Expected: 10/09/2023, Expires: Start: 10-09-2023 End: 01-08-2024 C reactive protein [Mass/volume] in Serum or Plasma C-REACTIVE PROTEIN (CRP) Lab Routine Primary Sjogren's syndrome (HCC) Pain in both feet Pain in both knees, unspecified chronicity Expected: 10/09/2023, Expires: 01/08/2024 [facility] Work Phone: Comment on above: Expected: 10/09/2023, Expires: 4 Start: 10-09-2023 End: 01-08-2024 CBC W Auto Differential panel - Blood CBC + DIFF Lab Routine Primary Sjogren's syndrome (HCC) Expected: 10/09/2023, Expires: 01/08/2024 [facility] Work Phone: Comment on above: Expected: 10/09/2023, Expires: 4 Start: 10-09-2023 End: 01-08-2024 Comprehensive metabolic 2000 panel - Serum or Plasma COMP METABOLIC PANEL Lab Routine Primary Sjogren's syndrome (HCC) Vitamin D deficiency Hyperparathyroidism due to vitamin D deficiency (HCC) Expected: 10/09/2023, Expires: 01/08/2024 [facility] Work Phone: Comment on above: Expected: 10/09/2023, Expires: 4 Start: 10-09-2023 End: 01-08-2024 Parathyrin.intact [Mass/volume] in Serum or Plasma PTH INTACT BLD Lab Routine Vitamin D deficiency Hyperparathyroidism due to vitamin D deficiency (HCC) Expected: 10/09/2023, Expires: 01/08/2024 [facility] Work Phone: Comment on above: Expected: 10/09/2023, Expires: 4 Start: 2023 RSV Vaccine (1 - 1-dose 60+ series) RSV Vaccine (1 - 1-dose 60+ series) [facility] Start: 07-02-2023 Behavioral Health Screening Behavioral Health Screening [facility] Start: 07-02-2023 Depression Assessment Depression Assessment [facility] Start: 03-02-2023 Covid-19 Vaccine ( season) Covid-19 Vaccine ( season) [facility] Start: 03-02-2023 Influenza vaccination [facility] Start: 07-02-2022 DEPRESSION ASSESSMENT DEPRESSION ASSESSMENT [facility] Start: 03-02-2022 Influenza vaccination INFLUENZA (#1) [facility] Start: 07-02-2021 DEPRESSION ASSESSMENT DEPRESSION ASSESSMENT [facility] Start: 06-17-2021 COVID-19 VACCINE (4 - Booster for Moderna series) COVID-19 VACCINE (4 - Booster for Moderna series) [facility] Start: 2013 SHINGRIX VACCINE (1 of 2) SHINGRIX VACCINE (1 of 2) [facility] Start: 2008 COLOGUARD (FIT-DNA) COLOGUARD (FIT-DNA) [facility] Start: 2008 Colonoscopy COLONOSCOPY [facility] Start: 2008 COLORECTAL CANCER SCREENING COLORECTAL CANCER SCREENING [facility] Start: [address] COLONOGRAPHY [facility] Start: 2008 FECAL OCCULT BLOOD FECAL OCCULT BLOOD [facility] Start: 2008 Lipid panel Lipid Screening [facility] Start: 2008 LIPID SCREEN LIPID SCREEN [facility] Start: 2008 Screening for malignant neoplasm of colon [facility] Start: 2008 SIGMOIDOSCOPY SIGMOIDOSCOPY [facility] Start: 2003 Mammography MAMMOGRAM [facility] Start: 2003 Screening for malignant neoplasm of breast Mammogram Screening [facility] Start: 1993 HPV TESTING HPV TESTING [facility] Start: 1993 Screening for malignant neoplasm of cervix HPV Testing [facility] Start: 1984 PAP TESTING PAP TESTING [facility] Start: 1984 Screening for malignant neoplasm of cervix Pap Testing [facility] Start: 1982 SHINGRIX VACCINE (1 of 2) SHINGRIX VACCINE (1 of 2) [facility] Start: 1982 Urine microalbumin profile [facility] Start: 1981 ANNUAL PCP TEAM CHRONIC DISEASE VISIT ANNUAL PCP TEAM CHRONIC DISEASE VISIT [facility] Start: 1981 BP CONTROLLED (<130/80) BP CONTROLLED (<130/80) [facility] Start: 1981 HEPATITIS C SCREENING HEPATITIS C SCREENING [facility] Start: 1981 Hepatitis C screening Hepatitis C Screening [facility] Start: 1981 HIV SCREENING HIV SCREENING [facility] Start: 1981 HIV screening HIV Screening [facility] Start: 1969 PNEUMOCOCCAL (1 - PCV) PNEUMOCOCCAL (1 - PCV) [facility] Start: 1963 HEPATITIS B (1 of 3 - 3-dose series) HEPATITIS B (1 of 3 - 3-dose series) [facility] c Immunizations Immunization Date Immunization Notes Care Provider [facility] 04-22-2021 COVID-19 Vaccine Moderna - Documentation Purposes Only Lito Mcrae Other [facility] 07-29-2020 COVID-19 Vaccine Moderna - Documentation Purposes Only Lito Mcrae Other [facility] 06-30-2020 COVID-19 Vaccine Moderna - Documentation Purposes Only Lito Mcrae Other [facility] 03-17-2020 influenza, injectabl e, quadrivalent, contains preservative Huma Ortiz MD Work Phone: [facility] 03-17-2020 influenza, injectabl e, quadrivalent, preservative free [facility] 03-17-2020 influenza virus vaccine, unspecified formulation Delia Rushing MD Work Phone: [facility] 03-12-2013 tetanus and diphther ia toxoids, adsorbed, preservative free, for adult use (5 Lf of tetanus toxoid and 2 Lf of diphtheria toxoid) Lito Mcrae Other [facility] Payers Date Payer Category [id number] 2021 Unknown [id number] 2019 Unknown [id number] 1965 Unknown [id number] 1965 Unknown [id number] Social History Date Type Detail Facility Start: 12-18-2014 End: 08-14-2023 Tobacco smoking status NHIS Never smoked tobacco [facility] Start: 12-18-2014 Tobacco use and exposure Smokeless tobacco non-user [facility] Start: 09-16-2021 End: 10-31-2022 Alcohol intake Current non-drinker of alcohol (finding) [facility] Start: 1965 Sex Assigned At Not on file C [facility] Start: 06-09-2020 End: 10-31-2022 Sex Assigned At [facility] Start: 1965 Sex Assigned At Female F [facility] Start: 06-09-2020 End: 10-31-2022 History of Social function [facility] Adult Depression Screening Assessment 1 [facility] Clinical Notes 03-31-2022 to 10-09-2023 Patient InstructionsAl-Delia Sellers MD - 10/09/2023 10:47 AM EDTTelephone Encounter - Sarah Wilson RN - 08/13/2023 2:41 PM EST Note Date & Type Note Facility 10-09-2023 Note HNO ID: [id number] Author: DELIA RUSHING MD Service: ? Author Type: Physician Type: Progress Notes Filed: 10/09/2023 19:52 Note Text: Rheumatology FOLLOW UP VISIT Referring Provider: Self Date of Service: 10/09/2023 Gender: female Ethnicity: White Age: [age] year old Chief Complaint: Follow Up Last Rheumatology visit: 10/31/2022 (with Delia Rushing) Kassidy Corona is a 58 year old White female who presents on 10/09/2023 for in person visit for follow up of Follow Up. She is currently taking hydroxychloroquine sulfate. INTERVAL HISTORY Ms. Corona is a very nice 58 y.o. lady here for f/u Sjogren's Syndrome October 09, 2023 Sicca symptoms same, stable No par. gld swelling No keratoconjunctivitis sicca since last visit, following with transactional attorney No skin rashes States wonders if may have RA from reading the internet States LB, muscles in hips Fatigue Weakness in LE Stiffness : joint and muscle Knees, wrist, fingers, states sometimes they last all day , like they're internally swollen but you can't internally see it Sometimes feels flu Numbness and tingling, when sleeping at night, fingers Feels losing quality Trouble sleeping most of the time Advised on evaluation for sleep apnea Body mass index is 53.21 kg/m?. -States has been taking hydroxychloroquine 200 mg twice daily with meals -Taking Turmeric supplement with black pepper: 1000 mg with meals -Vitamin D supplement: 5000 international units once daily with meals Answers submitted by the patient for this visit: Review of Systems Rheumatology (Submitted on 10/02/2023) Fever : No Recent unintentional weight change: No Eye pain: No Eye redness: No Vision Disturbance: Yes Eye Dryness: Yes Nosebleeds: No Sores in your mouth: No Trouble Swallowing: No Dry Mouth: Yes Chest pain: No Leg Swelling: No A cough: No Shortness of breath: No Pain with breathing: No Heartburn: No Abdominal pain: No Diarrhea: No Black tarry stools: No Blood in urine: No Pain or burning with urination: No Joint pain or stiffness: Yes Muscle weakness: Yes Muscle aches: Yes Joint swelling: Yes- reviewed, no jt swelling, referring to basal thumb jts Morning Stiffness in Joints: Yes A rash: No Skin Color Changes: No Hair Loss: No Nail Changes: No Headaches: No Numbness: Yes Memory Loss: No Swollen Glands: No PAIN EVALUATION 10/02/2023 1237 Pain Level: 6 Pain Location: Generalized Description: Aching;Burning;Dull;Numbness;Stabb ing;Stiffness;Tingling Duration Units: Days Frequency: Continuous Intervention/Comfort measure: Medication;Relaxation Impression Diagnoses: (M35.00) Primary Sjogren's syndrome (HCC) (primary encounter diagnosis) (R76.8) KJ positive (H04.123) Dry eyes, bilateral (R68.2) Dry mouth (M35.01) Keratoconjunctivitis sicca, in Sjogren's syndrome (HCC) (Z51.81, Z79.899) Encounter for monitoring of hydroxychloroquine therapy (M79.671, M79.672) Pain in both feet (M25.561, M25.562) Pain in both knees, unspecified chronicity (E55.9) Vitamin D deficiency (E21.1) Hyperparathyroidism due to vitamin D deficiency (HCC) (M19.041, M19.042) Primary osteoarthritis of hands, 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 Mckeon, with xerophthalmia and xerostomia, KJ positive. She has had negative SSa, SSb, RF and rest of MISBAH panel. SPEP/UPEP have been negative. She has no history of lymphoma or mm. She has no findings for sarcoidosis, RA or other rheum disease. She has no parotid gland swelling, no vital organ involvement. She is managing well with conservative care and follows good oral and ocular care and is following with her dentist and eye doctor. She has long standing history of polyarthralgia with reported benefit to steroids (?dose) and Dr. Salcedo and Dr. Ortiz have prescribed hydroxychloroquine. The patient reports well tolerated, may have helped with her joint stiffness and has no swelling on hydroxychloroquine today. She wishes to continue on hydroxychloroquine. Her G6PD screen is negative. She follows yearly for her retina exam, no Plaquenil toxicity. In terms of her question, I reassured her that she has no clinical findings or evidence for Psoriatic Arthritis, Rheumatoid Arthritis and no other inflammatory arthropathy at this time. She has no nail pitting or dystrophy. She has commonly seen nail ridges. She hand carried her outside hand x-rays and I personally reviewed the films at last visit and from recent outside facility. The findings are c/w osteoarthroses with bone on bone right 1st CMC, no erosive changes, no pencil in cup deformities or periosteal reactions, no chondrocalcinosis. (more content not included)... [facility] 10-09-2023 Instructions Delia Rushing MD - 10/09/2023 11:03 AM EDT -PLEASE NOTE THAT WE REVIEW ALL YOUR TEST RESULTS AT YOUR NEXT FOLLOW UP VISIT WITH YOU. IF ANY ABNORMAL LAB REQUIRES SOONER ATTENTION, WE WILL CONTACT YOU. -If you have signed up on SunnyBump, we will release your test results through SunnyBump. I wish you the best of health and wellness. -Please take care and stay safe and healthy. Consume a healthy diet, stay well hydrated, sleep well, be happy, improve stress (include meditation and regular exercise), ensure adequate vitamin D. Spend some time in nature, around trees and morris (forest bathing). Spend time outdoors next to greenery on a [place] day to benefit from the healing benefits of the Near Infra Red light of the sun that reflects on greenery (research showing benefits to cellular healing and benefits against covid-19 infection). These have been shown to help with overall health and wellbeing, stress, inflammation and in promoting a healthy immune system. -Continuous follow up with Primary care physician, for cardiovascular disease prevention, for age appropriate cancer screening and routine health maintenance and wellness, and infection precautions and age appropriate immunization, is recommended. - At this time, there is no clinical evidence for an inflammatory arthropathy, Rheumatoid Arthritis or Psoriatic Arthritis. You have findings of osteoarthroses. I recommend discussing your sleep, sleep apnea and the numbness/tingling you get at night with your Primary care physician. They can refer you to a Neurologist. Recommendations for osteoarthroses: We also discussed the benefit of health weight loss and regular exercise. For pain related to osteoarthroses the recommendations are PT, OT, low impact exercise, activity modification, maintaining healthy BMI and avoiding trauma to joints, wearing braces to support joints may help. Trey Chi can further help with knee pains from osteoarthroses. For foot pains, I recommend seeing Sample Maker Hand and wearing proper shoes with good inserts. - For exercise, you can do indoor stationary biking, swimming and beginner Trey Chi and physical therapy Trey Chi may be offered at your local [facility] - I do not recommend use of machine long goods helper NSAIDs, including ibuprofen, naproxen, meloxicam, celebrex and so forth, due to their high risk of serious adverse effect, including gastrointestinal ulcers and bleed, kidney failure, high blood pressure, risk of heart attack and stroke, bleeding and bruising etc... You can take the Turmeric instead and can take Acetaminophen/Tylenol extra strength Limit your acetaminophen to no more than 3000 mg daily. The Turmeric dose is listed below. You can also take Putnam-3 supplement (details below) - We have discussed Turmeric, over the counter supplement This has been reported to help with osteoarthroses and inflammatory arthropathy Turmeric is available in pill form or liquid and can be taken as 500 mg to 1000 mg twice daily with meals. Make sure there is black pepper in your meal when you take the turmeric so that it works better The black pepper could be present in the pill or can be with your meal. Those who have gallbladder or gall stone disease or on blood thinners or , should not take Turmeric. Turmeric is a spice that is used in many culinary cuisines, such as davies. You can consume it as a spice, instead of a supplement. The dose for the spice would be 1/4 to 1/2 teaspoon twice daily with a meal. This is usually mixed with food or a nut butter or blended in a smoothie to drink- with a plant based milk and half a banana. - Putnam-3 supplement: the dose can be 1000 mg up to 3000 mg daily I recommend plant based omega-3 (over fish oil), which is algal oil. - Ensure you are taking vitamin D : 5000 international units once daily with meals I will advise you if you need more vitamin D. -If you find no benefit to conservative care, PT and exercise, you may need to see an Orthopedics surgeon or child development specialist -Follow up with your Primary care physician for pain management. Certain patients may require referral to a bombsight specialist. For dry eyes/mouth/skin: - Please insure adequate hydration with water and avoid dehydration - Please use a humidifier in your bedroom, at bedtime, as this would help with the dry eyes and mouth. For dry mouth: -Please continue with good oral hygiene and follow up with your dentist and follow good dental care. -You will need to use toothpaste and mouth wash that are not drying - Can try over the counter products that can help with dry mouth, such as Biotene or ACT products - There are 2 medications that are prescribed. These can increase the secretion of saliva, such as salagen and evoxac. It is important to note that these medications are contraindication in patients with closed angle glaucoma. Before taking them, please verify with your eye doctor that you do not have this eye condition. Evoxac (cevimeline) and Salagen (pilocarpine), either can be prescribed depending on your insurance preferred med. They are taken as needed for dry mouth. When taking these medications: Take one pill once daily, and can increase up to three times daily as needed for dry mouth Some patients complain of excessive sweating while on these medications. Taking it less often may help. - Sip on water regularly and avoid sugar containing candy or chewables. For dry eyes: -Continue following with your eye doctor on a regular basis, once a year or more. -There are over the counter eye drops, artifical tears that your eye doctor will advise you to use. The ones without preservative are better tolerated. - Please continue following with your eye doctor, transactional attorney, for the dry eyes. There are prescription eye drops for dry eyes that they can prescribe. There are other procedures that the eye doctor can discuss if your dry eyes are not improving. For dry skin: -Avoid using topicals that cause dryness -Avoid overwashing skin and avoid harsh soaps and chemicals. -Use moisturizers, creams, ointments.. Follow up with your Office Services Specialist as needed Additional information can be found at the [facility] web link: [email or web address] -Avoid medications that cause dry eyes, mouth, when possible. - May try ground Flax seed to help with dryness -Avoid smoking - Recommend avoiding caffeine or limiting, as much as possible - Please avoid salty foods and high salt diet. -Manage stress and ensure good night sleep You can find additional information at : - the NIH website from the following link: https://newsinhealth.nih.gov//ebr-pccu-seslc - the [facility] from the following link: [email or web address] [email or web address]-mineoju e - Maintaining good vitamin D blood levels is important for bone health and overall health. Please see additional information on vitamin D below. A vitamin D blood test, called vitamin D 25-hydroxy (OH) is obtained to assess vitamin D level. If the vitamin D is low, you will need to take a vitamin D supplement. If you are already on a vitamin D supplement, then the dose will need to be adjusted. Also you multivitamin may contain vitamin D. Vitamin D is a fat soluble vitamin that requires it be taken with good fat to be absorbed. Examples of healthy fat include nuts, seeds, avocados, olives and for the most part the meal of the day. Spending up to 30 minutes in the sun during Summer and late Spring can provide natural vitamin D to the uncovered skin (arms, legs) - Your calcium can be sufficient in your diet. Healthy food that are rich in calcium include: nuts, seeds, legumes/beans, peas, dark green leafy vegetables, plant based milk Additional calcium rich foods listed below - Soaking Almonds overnight in the fridge with drinking water, can help with softening the almonds and improved absorption of the almonds. Please be careful not to break a tooth with dry raw almonds, or other hard nuts or seeds. If your lab work shows insufficient calcium or you are unable to consume sufficient foods rich in calcium, then a calcium supplement is recommended, such as calcium citrate. - You can track your nutrition and calcium intake on www.[email or web address].[email or web address] This provides macro and micronutrient intake and requirements. - You can track your calcium intake on boaconsulta.comometer.[email or web address] or any other calcium tracker of your choice. If you are not getting about 1200 mg of calcium daily, you will need to add a calcium supplement, such as calcium citrate to supplement you daily calcium so you can achieve your total 1200 mg daily See additional information below on calcium. - I recommend following a healthy lifestyle. You can find additional information below. I recommend this to all my patients, as I have seen convincing scientific evidence, and seen the results in my practice, of the benefits of this healthy lifestyle to overall health and wellness. I hope you will find this beneficial as well. A whole plant based diet and healthy lifestyle have been reported to be optimal for health in general, anti-inflammatory diet, prevention of common chronic diseases, healthy weight management, memory and brain healthy, bone health. - You can track your nutrition and calcium intake on www.[email or web address].[employer] This provides macro and micronutrient intake and requirements. Recommendations for healthy lifestyle include: Healthy nutritious diet, anti-inflammatory diet, appropriate exercise, good sleep hygiene, stress management, supplementing vital deficiencies and maintaining healthy weight. with BMI that does not exceed 25 to 26 . 5 points to remember to improve your health and continue on a healthy path: 1- Optimal nutritious food, such as a Whole Plant Based diet You can watch the documentary movie that features the Whole Plant Based diet, [place] over knives (see video online and visit website). Another movie that was recently released is: Eating You Alive (you can find it at [employer]) and The blueKiwi ChangeSurfEasy movie Dr. Adelaida Wilcox is a [facility] physician who is an expert in Whole Plant based diet. His website is [employer]. His research highlights the benefits of the Whole food plant based diet in reversing and preventing heart disease. Mrs. Wilcox (his ) has a cookbook with many recipes on whole plant based food: The Prevent and Reverse Heart Disease cookbook. You can also consider reading his son, Jorge Wilcox's book: The Engine 2 cookbook Jorge is a retired online editor who has helped many people get healthier by following the whole food plant based diet. Dr. Joaquín Jc, has a website and free allyssa to help get started on a whole plant based diet, at www.pcrm.org and you can log on for free for his 21-Day Kickstart with meals and recipes to follow for 21 days. There is also a free allyssa for that. He has multiple free videos and YouTube, for example: https://[employer] Media Technologies.be/hzmGfmrZ9t7 , https://youBespoke Globalu.be/MbTBJlbbt2c He has written multiple books, including Power [employer] for the Brain, The Cheese Trap, Dr. Joaquín Jc's Program for Reversing Diabetes, Your Body in Balance You can also watch YouTube channel : The Doc & Junior Automation Engineer Dr. Ross White has shown the benefit of a starch based whole food plant based diet to his Rheumatoid Arthritis patients, as well as patient with diabetes II, hypertension, obesity, multiple sclerosis, heart disease, acne, and other, his website: www.juan david.[employer]10 Entertainment Dr. Tess Padgett is a renowned lab scientist, who has studied and researched the benefits of the Whole plant based diet. He has also researched the adverse effects of animal proteins on health. He presents many of his research findings in his book The [place] study. Dr. Rodrigo Hernandes has completed many research trials proving the reversal of diseases, such as heart disease and early prostate cancer, with healthy lifestyle and the Whole Plant based diet. Dr. Rodrigo Hernandes website is: www.beverlyDipJar.[employer] His new book: Undo It, has evidence based information and guide to following this healthy lifestyle. Dr. Arnulfo Goyal has dedicated a website and additional time to reviewing all food related articles and research and presents them in his power point presentation and on his website at: nutritionfacts.org which is all free. Dr. Goyal has multiple free videos and YouTube, for example https://youBespoke Globalu.be/aSgNkhgVtks and https://youHStreaming.be/lXXXygDRyBU. He has written multiple books including: How Not To and How Not To Diet He is now working on his next book: How Not To Age Dr. Colette Murray (from the [facility]), has articles on the following website: SonoPlot.[employer] For additional ideas on recipes, you could find additional information on practical to follow recipes by reading or watching online and YouTube such as: Junior Automation Engineer AJ, Cooking With Plants, The Vegan Corner (recipes from an [place]ese Junior Automation Engineer), The Whole Foods Plant Based Cooking Show and visiting the provided websites for additional information on the whole plant based benefit and cooking recipes. You can also consider watching the vlogs of some of the plant based Athletes such as Sage Laura, Woo Gomez on Sc[employer]. You can find very good recipes for making easy tasty whole plant based foods and for free at the following YouTube channels: - Yun Huddleston (is a nurse RN) - The Whole Food Plant Based Cooking Show - Well Your World - Chew on Vegan (is a nurse RN) -The Jero Family - A Plant Based (is a nurse RN) - HealthyVeganEating - Epic Mint Leaves (simple few ingredient meals) - Broccoli Mum - PB with J -Sometimes it helps to start with a simple diet of potatoes, that Dr. White calls Patito Espinoza. You can learn more about that in his website: www.WeOwe This is the website for Patito Espinoza pdf : https://www.WeOwe/wp-con tent/uploads//Roxy-Olga_We bsite_Print_Version-1.pdf You can also read more on Dr. White's website - When you goal is to lose weight, it is important to listen to your hunger cues. Don't eat until you are stuffed. As soon as you feel you are no longer hungry, stop eating. There is a Swedish saying that says [place], meaning eat until you are 80% full. I say avoid eating past 80% of your stomach fullness. This originated from the city of [facility], which is one of the sites reported in the Blue eMithilaHaat book, one of the highest cities in the world for having the most centenarians. Remember your stomach needs space and capacity for proper digestion of your food. Like a seafood manager or a honey grader and blender, they have a limit for proper function, and should not be filled to the top. You can read more about that from the [facility] article Don t Eat Until You re Full ? Instead, Mind Your [place] , at https://health.[email or web address] /ddkb-xih-xnnyg-agidx-nfjm-jfjwilv -ixdr-ywly-gvhe-lbapl-ba-egiaq/ Dr. Elidia Douglas (a psychiatrist who suffered with lupus) has helped reverse her Systemic Lupus Erythematosus and helps many patients with their auto-immune diseases, based on her recommendations of the whole food plant based diet and the green smoothies. She has a facebook and website, and on youtube her channel is: Robbiebyemilee Lupus Some people have adverse effect or intolerance to gluten. Certain patients with auto-immune disease, including auto-immune thyroid disease, need to avoid gluten. If you suspect you are gluten sensitive or intolerant, you will need to consult with a steel handler to have further evaluation to exclude Celiac disease. If Celiac disease is excluded, but you are gluten intolerant, then you can follow a gluten free diet. Gluten could lead to increased inflammation in the bowels and body in certain patients. Not all your food has to be organ if you cannot afford or find them. Consider organic and non-GMO products when shopping for your food, when possible. GMO are genetically modified food that may have adverse impact on our health. If you are unable to purchase organic of non-GMO, you can wash your produce with white vinegar or soak in baking soda and water (see details from Dr. Stoner's website nutritionfacts.org) and rinse well with water. 2- Regular Exercise, such as beginner yoga, trey chi, stretching, cardio, gradual strengthening, pool therapy, physical therapy Come As You Are: YOGA - Gentle Yoga Anyone Can Do Anywhere www.Sopheon.[employer]/yo ga Also on youtube: yoga with Surekha 3- Good Sleep (poor sleep impacts everything, recommended sleep is 7 to 8 hrs. a night). Certain people may need more sleep, depending on their age and other conditions. Meditation and relaxation techniques have shown to help with improving sleep. Try to be consistent with your sleep. 4- Stress management, be happy, laugh often (it is a great medicine), practice gratitude and spiritual awareness Following steps 1-3 (above) will help with this as well. You are an amazing spiritual being with infinite happiness and infinite intelligence. By calming the mind and remembering to be in the awareness of the present moment, you will be in touch with your powerful spiritual being. Meditation, practicing breathing techniques and reading the books I have listed below can help you achieve this. Find time to relax and meditate. This is important, even if you only have 10 minutes a day. You can start your day with a 10 minute meditation. Try to Meditation once daily to twice daily 10 to 15 minutes each. If you have more time you can go longer. If you are new to meditation, it is good to start with a guided meditation. There are many Apps that help with guided Meditation and several are free or have free options such as: Calm Insight Timer Meditation Stress Free Now ([facility]) There are many free youtube videos on guided meditation as well For Breathing techniques: You can watch Nadeem Marce and learn the breathing technique and its benefits by watching the following YouTube: https://[employer] Media Technologies.be/5La3O-DGs00?si=-X svbk0RlgNTEbHT. Learning about your awareness/spiritual being, is very empowering and helps with stress, anxiety, mental clarity and wellbeing. I recommend 2 books to start learning about that from well renown spiritual teachers: -The Power of Now by Gisela Tejeda -The Unteathered Soul, by Arnulfo Escoto You can buy these books or borrow them from your local Library They both have many youtube videos and podcasts that you can listen to, and are free. If needed, you can work with a psychotherapist or behavioral health swimming coach. When having a psychiatric condition, it is important to follow with a professional on the optimal management of depression, anxiety and any other psychiatric illnesses. You can discuss that further with your Primary care physician/provider. 5- Supplements Supplementing necessary vitamins and minerals, correcting any deficiencies, i.e. Vitamin D, B12, omega-3 fatty acids etc... Go natural when possible -Important notice: If you are following a Whole plant based diet, it is recommended to take Vitamin B12, sublingual, dissolve under the tongue, take once daily. Vitamin B12 is available over the counter, dose could be 2500 mcg, and can be taken once a week, and if your blood levels are low, you may need to take it once daily or a higher dose. Raw: Garlic, Cilantro, [place] nuts, Pumpkin seeds, [place] Star seeds and Flax seed powder have been reported to help with certain metal detoxification such as mercury. Putnam-3 plant based rich foods are good anti-inflammatory sources such as : mark seeds, flax seed (needs to be ground), walnuts, hemp seeds, dark green leafy vegetables. It is important to avoid refined oils as much as possible especially that many have too much omega-6 that is pro-inflammatory (lead to inflammation as well as concern for heart and vascular disease). Turmeric can be found natural, used as the spice powder or the root with your food. This is also available as a capsule. If you are on a blood thinner, you will need to discuss with your pharmacist or physician before taking Turmeric If you have gall bladder disease or gall bladder stones, it is recommended to avoid turmeric capsules. Sweet cherries (raw cleaned or frozen), Turmeric , pineapple (contains bromelain), omega-rich foods, have anti-inflammatory benefit Start reviewing the Whole Plant Based Diet, by watching [place] over [place] movie and then review website. There are many other resources and educational information on the Whole plant based diet on the Internet and documentaries. There are other resources for wellness that you can also benefit from, such as the [facility] Wellness website, [email or web address] and includes Plant based and Mediterranean diet, yoga and meditation. Please avoid all dairy products. You could use non-dairy milk such as Flax milk, Cashew milk, Concord milk, Rice milk, Oat milk or Hemp milk, instead. It is very important to avoid all: refined sugars (including high fructose syrup), refined carbohydrates, any artificial sweeteners and artificial preservatives, and soda and heavily processed food. Insure adequate hydration; drink at least 6 to 8 cups of water daily, certain people need less or more. - You don't have to drink smoothies, but if you have a sweet tooth or enjoy a desert or something sweet every day, a smoothie can help satisfy that and would help you avoid eating refined foods and added sugars or snacking on unhealthy foods. Also smoothies can help you get a lot of green leafy vegetables in your system, especially if you have a busy schedule and don't have time to eat a lot of greens. You can start your day with a smoothie, especially if you are busy and don't have time to eat your oatmeal or veggies and fruits in the morning. Examples of Smoothies: You can try many of the healthy natural anti-inflammatory smoothies listed below, just add the ingredients to your honey grader and blender and blend: - Probably the healthiest smoothie is one that contains mostly green leafy vegetables (especially containing kale), some berries, flax seed and water. This might not bottom turner to be sweet. You can add one or two pitted dates or a frozen banana for natural sweetness. Examples of healthy green smoothies, pack your honey grader and blender (at least half way to 3/4) with a mix of green leafy veggies, then top your honey grader and blender with fruits (such as banana or frozen gilbert or pineapple, peaches, apricots, apples, grapes), a tablespoon of flax or mark seeds, then add water or unsweetened coconut water and blend until smooth. You can also add turmeric in this recipe. Do not only use spinach as they tend to be high in oxalates and can be risk for kidney stones. The same with albanian chards and beet leaves. If you don't like the taste of green leafy veggies in your smoothie, start gradually with one handful and add fruits to help with the taste. Another smoothie can be: - Fresh or frozen berries (such as frozen sweet cherries, blueberries, strawberries), a peeled frozen banana, green leafy vegetables (mixed greens or kale, not just spinach), 1 tablespoon of flax seed or mark seeds or a few walnuts, for liquid you can add water or an unsweetened plant based milk (can be soy, flax milk, almond milk), blend and enjoy. For anti-inflammatory boost add: Turmeric: half a root of turmeric (1 to 2 inches) or 1/4 dried turmeric powder along with a sprinkle of black pepper. This might change the flavor. You could add a quarter or half an avocado if you like it smoother and for a low fat option and less calories you can add instead a well cooked peeled sweet potato. -Tips on smoothies: To keep your green smoothies vibrant green, and not turn brown, keep the fruits that are yellow or orange in color only. Adding a cooked sweet potato can add sweetness and smooth texture to your smoothie. Adding beets to your smoothies can add sweetness and boost your nitric oxide. Beets are healthy for the heart, and they can bring blood pressure down. Beets have been reported to help with sports performance. For extra natural plant based proteins, you can add half a block of tofu or cooked chickpeas (or cannellini beans). Black beans can be added, they will turn your smoothie darker. If you do not tolerate walnuts, you can use flax seeds, mark seeds or hemp seeds instead. If you do not like plant based milk, you can use coconut water or plain water instead. Avoid coconut milk and cream as it is high in saturated fat. You can add 1/4 to 1/2 cup of oats in your smoothies if you need more calories and need it to sustain you for longer. The lebron with smoothies is to drink (sip) them slowly, over an hour. - Prunes have been reported to help with bone density and inflammation, and are also beneficial for the gut microbiome and constipation. -The Prune Study article: Avendaño, Sana ALFARO, Yasir NI, Sai H, Marci KJ, Gunner Ibarra, Keri MG, Nakyevgeniy CH, Pope C. Prunes preserve hip bone mineral density in a 12-month randomized controlled trial in postmenopausal women: the Prune Study. Am J Clin Nutr. 2021Apr 06;116(4):897-910. doi: 10.1093/ajcn/rwrz247. PMID: 87684351. -Benefit to bone density and inflammation: Colten WOODY, Avendaño, Luisito NUÑEZ, Sana ALFARO, Gunner MORELOS. The Role of Prunes in Modulating Inflammatory Pathways to Improve Bone Health in Postmenopausal Women. Adv Nutr. 2021Apr 02;13(5):7332-8783. doi: 10.1093/advances/ohwl658. PMID: 75010517; PMCID: [id number]. GENERAL INFORMATION ON BONE HEALTH : -Bone Density testing (DXA scan) as recommended. -Vitamin D supplementation is recommended, unless blood levels are sufficient. Recommended daily dose of 1000 to 2000 IU total a day, or the dose necessary to achieve a Vitamin D 25-OH blood level of >31 and preferably closer to 40-60 ng/mL. Vitamin D pills are available over the counter. -Recommended daily dose of calcium: 1200mg total a day in divided doses. Calcium is usually sufficient in our regular diet, also available in multivitamins. Patients on certain dietary restrictions or those unable to meet their daily calcium by diety alone, may require calcium supplements. For patient with history of calcium kidney stones, Calcium Citrate would be the recommended supplement. It is recommended to avoid caclium carbonate supplement in this case, as these may increase risk of calcium kidney stones. The after visit summary has information on dietary calcium and instructions on reading calcium label and converting the %DV to mg. When you read a food label and you see calcium reported as DV %, add a zero and this will provide you with the approximate mg value of the calcium content in this food. For example, if a glass of almond milk is labeled as 40% calcium DV, then this contains 400 mg of calcium. For additional information, please see references provided. -Regular weight-bearing and muscle-strengthening exercise -Avoidance of tobacco smoking, excessive alcohol intake and excessive caffeine intake. -Fall and fracture precautions -It is recommend to continue regular follow up visits with your dentist every 6 months, and continue with good oral hygiene. Calcium: If your diet is sufficient in Calcium rich food, you will not need calcium supplement. Calcium Citrate is the preferred calcium if you have had kidney stones. Daily recommended calcium dose: 600mg twice a day with meals. Adequate calcium ingestion is essential for maintaining healthy bones. The recommended dose daily intake of calcium varies depending on individual needs but is usually between 1200 and 1500mg daily, preferably around 1200mg a day in divided dose (not all taken at once). This is equivalent to about five 8oz glasses of milk per day. Many foods are rich in calcium and they include: - Plant based, non-dairy, calcium rich products, include nuts, almond milk, beans, lentils - Vegetables and Fruit: bok-velazquez, turnips, broccoli, kale, collards, - Dairy products: milk, cheese, yogurt, ice-cream - Fish products: canned salmon, sardines and shrimp - Cereals and nuts: almonds, sesame seeds, fortified cereals and oatmeal - Other foods: fortified orange-juice, figs, soybeans, other beans and eggs. If you have a low calcium diet and cannot tolerate calcium-rich foods, many supplements are available today. Your pharmacist can help you choose the one which best suits your needs. A few tips on supplements: - They should be easy to swallow - They should dissolve easily in cup of vinegar in < 15 minutes. - Count the ELEMENTAL calcium mgs. E.g. Calcium 499mg may have only 221mg of elemental Calcium. - Calcium citrate is the calcium supplement to take if you have had kidney stones and unable to meet your calcium requirements from food/diet alone. - There is such a variety today that it is best to bring in the bottle to your doctor to show them exactly what you are taking. Lastly too much calcium can be bad for you. Recent studies show extra supplements may increase your risk of kidney stones or cause high calcium levels in some people. You should discuss how much you should be taking with your doctor before starting them. Further Information is available from the following resources: www.nof.org (National Osteoporosis Foundation) http://www.osteo.org/osteolinks.as p National Institutes of Health: 7-447-546-BONE The Calcium Information [place]: -Non-Dairy, Plant based Milk, can contain in1 glass up to 450 mg of calcium (300 to 450 mg) Exampled include Oat Milk, Flax Milk, Concord Milk, Cashew Milk, Soy Milk, Peas Milk general health and well being Examples of Food Sources of Calcium from [facility] Food Milligrams (mg) per serving Percent DV* Soymilk, calcium-fortified, 8 ounces 299 30 [place] juice, calcium-fortified, 6 ounces 261 26 Tofu, firm, made with calcium sulfate, cup* 253 25 Tofu, soft, made with calcium sulfate, cup* 138 14 Yhfue-hu-mqj cereal, calcium-fortified, 1 cup 100-1,000 10-100 Turnip greens, fresh, boiled, cup 99 10 Kale, raw, chopped, 1 cup 100 10 Kale, fresh, cooked, 1 cup 94 9 [place]i cabbage, bok velazquez, raw, shredded, 1 cup 74 7 Bread, white, 1 slice 73 7 Tortilla, corn, rfuzz-vs-ynpm/fagan, one 6 diameter 46 5 Tortilla, flour, hobpk-je-fwun/fagan, one 6 diameter 32 3 Bread, whole-wheat, 1 slice 30 3 Broccoli, raw, cup 21 2 * DV = Daily Value. DVs were developed by the U.S. Food and Drug Administration to help consumers compare the nutrient contents among products within the context of a total daily diet. The U.S. Department of Agriculture s (USDA s) Nutrient Database Web site lists the nutrient content of many foods and provides comprehensive list of foods containing calcium arranged by nutrient content and by food name. *Calcium content varies slightly by fat content; the more fat, the less calcium the food contains. * Calcium content is for tofu processed with a calcium salt. Tofu processed with other salts does not provide significant amounts of calcium. You could acces this information online at: http://ods.od.nih.gov/factsheets/C alcium-HealthProfessional/ Vitamin D: Vitamin D3= cholecalciferol, available over the counter. Dose recommended 800 to 1000 iu daily with a meal; Certain patients require 1143-9681 iu daily and in patients deficient in Vitamin D, they require higher dosages. Certain patient requires higher dose, depending on their Vit D blood levels. Vitamin D is essential for calcium metabolism. It is really a hormone produced mainly in your skin after exposure to sunlight. Vitamin D helps you absorb calcium from your stomach and kidneys and incorporates it into your bones. Studies show approximately 50% of [place] men and women are vitamin D deficient in the winter. Milder cases of vitamin D are usually asymptomatic so the only way to know you have a problem is to have a blood level checked. More severe cases can cause osteomalacia (a.k.a. rickets) which can result in bone pain, weak bones and several abnormal laboratory tests and also weak muscles (a.k.a. myopathy). When this happens, your bones lose a lot of their calcium stores as the body tries to regulate the calcium required by other tissues. Prolonged deficiency can lead to severe bone disorders and fractures. Unlike calcium, dietary sources of vitamin D are rare, limited to a few fish oils particularly cod-liver oil, other fortified foods and egg yolks. and most are unhealthy. Natural source of vitamin D is through sunshine. This is usually during bahman seasons, for example a 30 minute exposure to sunshine. Some people are unable to be exposed to the sun due to skin condition. Often supplementation is needed. Many multivitamins contain some vitamin D and vitamin D alone preparations are now available in several forms. The recommended daily intake of vitamin D used to be 400 and 800 international units, however, it is now known that larger amounts are needed, as discussed above. Your doctor can prescribe prescription strength vitamin D for you if necessary, if you have marked deficiency or diseases of the liver or kidney. Supplementation in patients with severe deficiency can stabilize or improve bone mineral density and in frail elderly persons, may reduce their risk of falling. Additional Information is available from: [facility] Osteoporosis Information: [email or web address] [email or web address]/orthopaedics-[email or web address] /depts/osteoporosis-metabolic The Bone Health and Osteoporosis Foundation (formerly the National Osteoporosis Foundation) : https://www.bonehealthandosteoporo sis.org International Osteoporosis Foundation: https://www.osteoporosis.foundatio n http://ods.od.nih.gov/factsheets/v itamind.asp National Institutes of Health: 2-616-443-BONE [facility] Information [place]: I hope this information will help you be empowered with the awareness and knowledge to achieve the best of your health and wellbeing. At the [facility], we work as a team for your care, along with Nurse Practitioners, Physician Assistants, Nurses and Medical Assistants. It is a privilege and honor to serve you. Thank you for choosing The [facility] for your healthcare. Sincerely, Delia Navarro MD documented in this encounter [facility] 10-09-2023 History of Present illness Narrative Images from the original note were not included. Rheumatology FOLLOW UP VISIT Referring Provider: Self Date of Service: 10/09/2023 Gender: female Ethnicity: White Age: [age] year old Chief Complaint: Follow Up Last Rheumatology visit: 10/31/2022 (with Delia Rushing) Kassidy Corona is a 58 year old White female who presents on 10/09/2023 for in person visit for follow up of Follow Up. She is currently taking hydroxychloroquine sulfate. INTERVAL HISTORY Ms. Corona is a very nice 58 y.o. lady here for f/u Sjogren's Syndrome October 09, 2023 Sicca symptoms same, stable No par. gld swelling No keratoconjunctivitis sicca since last visit, following with transactional attorney No skin rashes States wonders if may have RA from reading the internet States LB, muscles in hips Fatigue Weakness in LE Stiffness : joint and muscle Knees, wrist, fingers, states sometimes they last all day , like they're internally swollen but you can't internally see it Sometimes feels flu Numbness and tingling, when sleeping at night, fingers Feels losing quality Trouble sleeping most of the time Advised on evaluation for sleep apnea Body mass index is 53.21 kg/m . -States has been taking hydroxychloroquine 200 mg twice daily with meals -Taking Turmeric supplement with black pepper: 1000 mg with meals -Vitamin D supplement: 5000 international units once daily with meals Answers submitted by the patient for this visit: Review of Systems Rheumatology (Submitted on 10/02/2023) Fever : No Recent unintentional weight change: No Eye pain: No Eye redness: No Vision Disturbance: Yes Eye Dryness: Yes Nosebleeds: No Sores in your mouth: No Trouble Swallowing: No Dry Mouth: Yes Chest pain: No Leg Swelling: No A cough: No Shortness of breath: No Pain with breathing: No Heartburn: No Abdominal pain: No Diarrhea: No Black tarry stools: No Blood in urine: No Pain or burning with urination: No Joint pain or stiffness: Yes Muscle weakness: Yes Muscle aches: Yes Joint swelling: Yes- reviewed, no jt swelling, referring to basal thumb jts Morning Stiffness in Joints: Yes A rash: No Skin Color Changes: No Hair Loss: No Nail Changes: No Headaches: No Numbness: Yes Memory Loss: No Swollen Glands: No PAIN EVALUATION 10/02/2023 1237 Pain Level: 6 Pain Location: Generalized Description: Aching;Burning;Dull;Numbness;Stabb ing;Stiffness;Tingling Duration Units: Days Frequency: Continuous Intervention/Comfort measure: Medication;Relaxation Impression Diagnoses: (M35.00) Primary Sjogren's syndrome (HCC) (primary encounter diagnosis) (R76.8) KJ positive (H04.123) Dry eyes, bilateral (R68.2) Dry mouth (M35.01) Keratoconjunctivitis sicca, in Sjogren's syndrome (HCC) (Z51.81, Z79.899) Encounter for monitoring of hydroxychloroquine therapy (M79.671, M79.672) Pain in both feet (M25.561, M25.562) Pain in both knees, unspecified chronicity (E55.9) Vitamin D deficiency (E21.1) Hyperparathyroidism due to vitamin D deficiency (HCC) (M19.041, M19.042) Primary osteoarthritis of hands, 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 Mckeon, with xerophthalmia and xerostomia, KJ positive. She has had negative SSa, SSb, RF and rest of MISBAH panel. SPEP/UPEP have been negative. She has no history of lymphoma or mm. She has no findings for sarcoidosis, RA or other rheum disease. She has no parotid gland swelling, no vital organ involvement. She is managing well with conservative care and follows good oral and ocular care and is following with her dentist and eye doctor. She has long standing history of polyarthralgia with reported benefit to steroids (?dose) and Dr. Salcedo and Dr. Ortiz have prescribed hydroxychloroquine. The patient reports well tolerated, may have helped with her joint stiffness and has no swelling on hydroxychloroquine today. She wishes to continue on hydroxychloroquine. Her G6PD screen is negative. She follows yearly for her retina exam, no Plaquenil toxicity. In terms of her question, I reassured her that she has no clinical findings or evidence for Psoriatic Arthritis, Rheumatoid Arthritis and no other inflammatory arthropathy at this time. She has no nail pitting or dystrophy. She has commonly seen nail ridges. She hand carried her outside hand x-rays and I personally reviewed the films at last visit and from recent outside facility. The findings are c/w osteoarthroses with bone on bone right 1st [facility], no erosive changes, no pencil in cup deformities or periosteal reactions, no chondrocalcinosis. I also reviewed her previous films from 2020. At this time, there is no clinical evidence for an inflammatory arthropathy or inflammatory spondyloarthritis. Patient has findings of DJD/OA. She is seeing Orthopedics for her hand osteoarthroses. She has been referred to OT. BMI >50, this has been associated with worsening hand osteoarthroses, and musculoskeletal pains, sleep apnea, fatigue and multiple other morbidities. Systemic Lupus Erythematosus (SLE) - Classification Criteria SLICC Classification Criteria CLINICAL CRITERIA: - no nonscarring alopecia - no oral ulcers OR nasal ulcers - no chronic cutaneous lupus - no subacute cutaneous lupus OR Acute cutaneous lupus - no synovitis involving two or more joints - no neurologic (seizures, psychosis, mononeuritis complex. Myelitis or neuropathy) - no serositis - no hemolytic anemia - no leukopenia (<4000/mm3) OR Lymphopenia (<1000/mm3) - no thrombocytopenia (<100,000/mm3) - no lupus nephritis IMMUNOLOGICAL CRITERIA: - KJ positive 1 - no low complement - no anti-dsDNA antibody - no Anti-Moran antibody New ACR and EULAR Classification Criteria CLINICAL DOMAINS: - no fever - no nonscarring alopecia - no oral ulcers - no subacute cutaneous or discoid lupus - no acute cutaneous lupus - no synovitis in at least two joints, or tenderness in at least two joints, AND at least 30 min of morning stiffness - no delirium - no psychosis - no seizure - no pleural or pericardial effusion - no acute pericarditis - no leukopenia - no thrombocytopenia - no autoimmune hemolysis IMMUNOLOGIC DOMAINS: - KJ > 1:80 on human rugfggnahc-[id number] cells, or an equivalent positive test - no low C3 or low C4 - no Low C3 AND low C4 - no anti-dsDNA antibody - no Anti-Moran antibody SLICC Classification Score: 1 ACR and EULAR Classification Score: 0 Meets the classification criteria for SLE?: No Meets the classification criteria for SLE?: No Plan Office Visit on 10/09/23 PTH INTACT BLD VITAMIN D 25 HYDROXY CBC + DIFF COMP METABOLIC PANEL C-REACTIVE PROTEIN (CRP) RECOMMENDATION/PLAN: Reviewed indication for orders with instructions Reviewed labs, patient relayed has to get them at other lab due to cost and insurance coverage Ordered printed and provided to patient. She is on hydroxychloroquine per Dr. Ortiz's prescription: 200 mg twice daily I advised her if loses wt, we would need to adjust the dose -Patient was advised on hydroxychloroquine/ Plaquenil Should be taken with meals;The dose is not to exceed 5 mg/ actual weight in kg/day or 6.5 mg of ideal body wt in kg/day. Continued follow up with transactional attorney, once a year for retinal exams to monitor for any retinopathy and to prevent risk of vision loss and blindness. Advised to: Please use sun screen if you are outdoors during summer and bahmna days, to avoid skin pigment changes and sunburn, as this is a risk with hydroxychloroquine. If experiences palpitations or chest pains, would need to stop the hydroxychloroquine and contact you for further evaluation and to obtain an ECG to insure she does not have a prolonged QTc. Risks, benefits, alternatives, reported side effects, indication, limitations/expectation of medication(s) were discussed with patient and patient wished to proceed. Written information provided for patient review. Reviewed care for sicca symptoms Reviewed the Vital trial I discussed with patient regarding nature and pathophysiology of DJD and OA. Discussed current up to date management and health and wellness and integrative medicine approach, I informed of lack of available disease modifying drugs for OA, however, reports on benefit with exercise. I discussed recommendations on conservative management, maintaining ideal body wt. and appropriate exercise and reviewed reported favorable clinical outcome from research studies, PT/OT, range or motion, strengthening and stretching exercises (could consider yoga or trey chi), water aquatics/pool exercise, continued healthy diet and maintaining healthy body weight and BMI, improving sleep hygiene/quality and restorative sleep, Vitamin D supplementation and maintaining normal vit D blood levels, may also consider option of osteopathic or chiropractic manipulation and acupuncture procedures, massage therapy, braces/splints, activity modification, precautions on joint damage, orthotics/inserts for feet, appropr. cushion and shoe wear for feet, follow up with extra hand. Discussed meds taken for OA and otc topical therapy and oral meds may offer pain relief, but have not been proven to provide significant response for disease modification. Reviewed options and role/indication for joint injections and their limitations in reversing DJD and OA changes, and reviewed indication for arthroplasty. Following a healthy lifestyle will provide optimal chance for disease remission, decreasing risk for CV disease and common chronic diseases, and overall wellbeing. I reviewed conservative care, wellness and healthy lifestyle, as well as the benefits of a whole foods plant based diet. I have had many patients experience significant relief in musculoskeletal pains and inflammatory arthropathy, by avoiding refined sugars and dairy and following whole foods plant based diet. Additional time spent with patient on healthy lifestyle, healthy food and anti-inflammatory diet (with emphasis on whole plant based diet), avoiding refined carbs/sugars and processed food, appropriate exercise (stretching, cardio and strengthening), good sleep hygiene, stress mgt, and supplementing vital deficiencies and maintaining healthy wt and healthy BMI. Additional information provided with references and educational information. Bone Health Recommendations: -Bone Density is recommended after menopause and after age 55-60, sooner if patient has risk factors, sooner if on systemic steroid use of 3 months or more. -Vitamin D supplementation recommended, optimal dose is the dose necessary to achieve Vitamin D 25-OH blood level in range of 40-60 ng/mL. (Vitamin D supplement in international units, is the dose necessary to achieve a Vitamin D 25-OH blood level in range of 40-60 ng/mL). -Recommended daily dose of calcium: 1200mg total a day in divided doses. Calcium from dietary sources, if not sufficient, or if with h/o calcium nephrolithiasis would recommend Calcium Citrate supplement, as it is recommended to avoid caclium carbonate products, which as main dietary calcium source. The after visit summary has information on dietary calcium and instructions on reading calcium label and converting the %DV to mg. -Regular weight-bearing and muscle-strengthening exercise -Avoidance of tobacco smoking, excessive alcohol intake and excessive caffeine intake. -Fall and fracture precautions -Continued regular dental follow up visits and good dental/gum care Discussed medication dosage, usage, goals of therapy, and side effects. Additional time spent on interpretation of test results. Available laboratories an their clinical significance were reviewed with the patient. Radiographs were reviewed at todays visit. Additional time was spent outside of the patient visit to review records. today. Assessment and plan were discussed with the patient. Additional time spent with the patient to discuss their questions. Additional time spent with the patient devoted to discussing treatment strategy, planning, implementation and preventive health and wellness recommendations. -Will follow results and advise further by MyChart/Telephone or Apt. -Patient is following with Primary care physician and other providers for their other health care. Recommendations to share with referring physician/Primary care physician : Dear Dr. Mcrae : I had the pleasure of seeing your patient, Ms. Corona. I have enclosed a copy of my clinic note with my assessment and recommendations for this patient. Recommendations for your consideration as you deem necessary: -Recommend further evaluation of sleep problems, reported paresthesias during sleep and for excluding sleep apnea. Consider referral to Neurology and Sleep specialist. -Patients with Sjogren's syndrome have been reported to have increased prevalence for certain malignancies, monoclonal gammopathies and lymphoma. If patient develops lymphadenopathy, would recommend further evaluation for lymphoma. -Patient advised on regular follow up with dentist and transactional attorney, good eye and oral care, dental hygiene, specific recommended and available moisturizing agents discussed. -Recommend considering the addition of preventive care, mind and body health and wellness and non-pharmacologic and integrative medicine approach. Consider regular graded aerobic exercise, stretching exercises (could consider yoga or trey chi), strengthening as indicated, continue with healthy diet, maintaining healthy body weight and BMI, improve sleep hygiene/quality and restorative sleep, Vitamin D supplementation and maintaining normal vitamin D blood levels, may consider osteopathic or chiropractic gentle manipulation, and acupuncture procedures, aquatic pool therapy, could consider PT/HEP, massage therapy, stress relief and mind and spirit and psychotherapy. Research has shown that too much stress may have a significant impact on ones health and wellness. Also inadequate sleep and overweight may impact fatigue, pain, in addition to increased cardiovascular and cancer risk. Recommend management of any psychiatric illnesses, depression and stress with Primary care physician, Psychiatrist and psychotherapy, as deemed necessary. -Continuous follow up with Primary care physician for cardiovascular disease prevention, for age appropriate cancer screening and routine health maintenance and wellness, and infection precautions and age appropriate immunization recommended. -I have advised on wellness and the whole plant based diet, as they have been shown to prevent and reverse hear disease, prevent and treat diabetes mellitus II, decrease risk of CV disease, diabetes, metabolic syndrome, HTN, hyperlipidemia, obesity, bone loss, certain auto-immune, inflammatory, skin disorders, certain cancers, macular degeneration, certain degenerative disorders, multiple other chronic health disorders, and be in favor of general health and wellness. Thank you for allowing me to participate in the care of your patient. Return in about 1 year (around 10/08/2024) for for SjS., sooner if needed Will follow results; Patient will ensure results will be sent to us for review. I spent a total of 29 minutes on the date of the service which included preparing to see the patient, [id number] patient care, completing clinical documentation, obtaining and/or reviewing separately obtained history, performing a medically appropriate examination, counseling and educating the patient/family/caregiver, ordering medications, tests, or procedures, communicating with other HCPs (not separately reported), independently interpreting results (not separately reported), communicating results to the patient/family/caregiver, and care coordination (not separately reported). Delia Rushing MD cc: PCP: Lito Mcrae, [address] [place] [address] Subjective HISTORY OF PRESENT ILLNESS NEW CONSULT October 31, 2022 Ms. Corona is a very nice 57 y.o. lady, with reported PMH of HTN, gerd, Sjogren's Syndrome, osteoarthroses, depression/anxiety on bupropion and escitalopram. Never smoked Denies being diagnosed sleep apnea, has not been tested, does not believe has the symptoms. BMI >50, states has lost 65 lbs within 2 to 2.5 yrs, on Ozempic. 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 Ortiz at [facility], for Sjogren's Syndrome, on hydroxychloroquine. She would like to move closer to home and is planning to f/u with me. Discussed that Dr. Ortiz is my colleague and I am happy to follow her. She has initially seen Dr. Salcedo and when he left, transferred care to Dr. Ortiz. CC: hand pains, would like to know if has Psoriatic Arthritis States noticed changes in her nails and wondered if she could have Psoriatic Arthritis (nail ridges) Jt pains: b/l wrists, hands, fingers Majority of rt basal thumb, sometimes the rt index or pinky Today notices pinky b/l big toes, feels is the whole toe, denies discoloration States at work is constantly pumping BP cuff and typing Am stiffness: has to work her fingers because of stiffness Jt swelling: rt base of thumb, they feel like they's swollen sometimes referring to puffy fingers No history of dactylitis Enthesitis: states had history of PF and once used inserts never had an issue since No AT Rt heel post calcaneal spur, is larger and her Sample Maker Hand told her she will need surgery, states it yang and suspects may be affecting a nerve. Reports Sjogren's Syndrome stable, no concerns today. Sjogren's Syndrome since 2013 Dry eyes and mouth Denies parotid gld swelling Mouth feels like cotton in mouth, cannot eat a cracker without water At night, takes sips of water Dry eyes is anytime of the day, not limited to night time. States feels like eyes have sand in them some days Denies photosensitivity or skin rashes She has been on hydroxychloroquine prescribed by Dr. Salcedo, initially at [facility] and then refilled by Dr. Ortiz. Reviewed Dr. Ortiz's notes Follows regularly with dentist and transactional attorney. States has had cavities, still has most of her teeth She is not aware of keratoconjunctivitis sicca, but states sees it on her chart Denies being prescribed steroid eye gtts Follows with transactional attorney once a year, no Plaquenil toxicity States will be due for her next apt soon. States feeling more fatigue in past year Works Sun to from, 8 am to 8:30, 8 to 5pm, 8: 7: 30pm Family history: not aware of any history of Psoriasis or Psoriatic Arthritis Answers submitted by the patient for this visit: Review of Systems Rheumatology (Submitted on 10/25/2022) Fever : No Recent Unintentional Weight Change: No Eye Pain: No Eye Redness: No Vision Disturbance: Yes Eye Dryness: Yes Nose Bleeds: No Sores in your Mouth: No Trouble Swallowing: No Dry Mouth: Yes Chest Pain: No Leg Swelling: No A Cough: No Shortness of Breath: No Pain with Breathing: No Heartburn: No Abdominal Pain: No Diarrhea: No Black Tarry Stools: No Blood in Urine: No Pain or Burning with Urination: No Joint Pain or Stiffness: Yes Muscle Weakness: Yes Muscle Aches: Yes Joint Swelling: Yes Morning Stiffness in Joints: Yes A Rash: No Skin Color Changes: No Hair Loss: No Nail Changes: Yes- ridges, no pitting Headaches: No Numbness: No Memory Loss: No Swollen Glands: No Per Dr. Ortiz's note Per visit: 04/28/2015 'Ms. Kassidy Corona is a 49 year old White female who presents with polyarthralgia 2 yrs off and on in the past but got worse last yr. Has had polyarthralgia without swelling primarily involving the thumbs, DIPs, wrists, ankles and top of the feet, with AM stiffness 2 hrs. PCP put her on medrol pack with 90% improvement in her joint stiffness. Was feeling stomach upset and kept her awake. She did not like it. Developed shingles and was put on acyclovir x 1 week, and the rash is better in her back. Medication use: (+) NSAID, (-) MTX, (-) hydroxychloroquine when she saw Dr. Salcedo in November 2014. Functional status: able to perform normal basic ADLs without any limitations. 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 [Case definition for Sj gren's syndrome (October 2011): At least 2 of the following 3: 1) positive serum anti-SSA and/or anti-SSB or (positive rheumatoid factor and antinuclear antibody titer >1:320), 2) ocular staining score >3, or 3) presence of focal lymphocytic sialadenitis with a focus score >1 focus/4 mm2 in labial salivary gland biopsy samples. Arthritis Care & Research. Vol. 64, No. 4, October 2011, pp [id number]] Diagnosis of Sjogren was based on Aminah's tear test [was 6/10 in both eyes]. Had ocular staining score - report? She will fax. She has fatigue +. Affected by weather. No brain fog. Joint pains are 75% better with Plaquenil, compared to before starting Plaquenil. Using Refresh - helps. Drinks a lot of water. Not on Restasis at this time. Outside tests were reviewed and pertinent results summarized as below. Outside Labs: 11/06/14 KJ 1:160 ASO 148 cmp wnl, glu 121, cr 0.65 LH 2.88, RF neg .. PROBLEM LIST Keratoconjunctivitis Sicca, in Sjogren's Syndrome (Hcc) Essential Hypertension Primary Osteoarthritis Involving Multiple Joints Morbid Obesity With Bmi of 50.0-59.9, Adult (Hcc) Polyarthralgia ... Assessment: Sjogren syndrome Osteoarthritis of first CMC joints. Lumbar degenerative disc disease H/o depression/anxiety Hypertension Recommendations: 1. Will check labs. 2. Continue current medications. 3. Follow up in 6 months. - Huma Ortiz MD INTERVAL HISTORY Ms. Corona is a very nice 58 y.o. lady here for f/u Sjogren's Syndrome October 09, 2023 Sicca symptoms same, stable No par. gld swelling No keratoconjunctivitis sicca since last visit, following with transactional attorney No skin rashes States wonders if may have RA from reading the internet States LB, muscles in hips Fatigue Weakness in LE Stiffness : joint and muscle Knees, wrist, fingers, states sometimes they last all day , like they're internally swollen but you can't internally see it Sometimes feels flu Numbness and tingling, when sleeping at night, fingers Feels losing quality Trouble sleeping most of the time Advised on evaluation for sleep apnea Body mass index is 53.21 kg/m . -States has been taking hydroxychloroquine 200 mg twice daily with meals -Taking Turmeric supplement with black pepper: 1000 mg with meals -Vitamin D supplement: 5000 international units once daily with meals Answers submitted by the patient for this visit: Review of Systems Rheumatology (Submitted on 10/02/2023) Fever : No Recent unintentional weight change: No Eye pain: No Eye redness: No Vision Disturbance: Yes Eye Dryness: Yes Nosebleeds: No Sores in your mouth: No Trouble Swallowing: No Dry Mouth: Yes Chest pain: No Leg Swelling: No A cough: No Shortness of breath: No Pain with breathing: No Heartburn: No Abdominal pain: No Diarrhea: No Black tarry stools: No Blood in urine: No Pain or burning with urination: No Joint pain or stiffness: Yes Muscle weakness: Yes Muscle aches: Yes Joint swelling: Yes- reviewed, no jt swelling, referring to basal thumb jts Morning Stiffness in Joints: Yes A rash: No Skin Color Changes: No Hair Loss: No Nail Changes: No Headaches: No Numbness: Yes Memory Loss: No Swollen Glands: No Disease History Systemic Lupus Erythematosus (SLE) History Relevant to SLICC Classification Criteria - no nonscarring alopecia - no oral ulcers OR nasal ulcers - no chronic cutaneous lupus - no subacute cutaneous lupus OR Acute cutaneous lupus - no synovitis involving two or more joints - no neurologic (seizures, psychosis, mononeuritis complex. Myelitis or neuropathy) - no serositis - no hemolytic anemia - no leukopenia (<4000/mm3) OR Lymphopenia (<1000/mm3) - no thrombocytopenia (<100,000/mm3) - no lupus nephritis - KJ positive - no low complement - no anti-dsDNA antibody - no Anti-Moran antibody Relevant to New ACR and EULAR Classification Criteria - no fever - no nonscarring alopecia - no oral ulcers - no subacute cutaneous or discoid lupus - no acute cutaneous lupus - no synovitis in at least two joints, or tenderness in at least two joints, AND at least 30 min of morning stiffness - no delirium - no psychosis - no seizure - no pleural or pericardial effusion - no acute pericarditis - no leukopenia - no thrombocytopenia - no autoimmune hemolysis - KJ > 1:80 on human [id number] cells, or an equivalent positive test - no low C3 or low C4 - no Low C3 AND low C4 - no anti-dsDNA antibody - no Anti-Moran antibody Other History Relevant to SLE - no stroke - no pre-eclampsia or eclampsia - no miscarriage - no Raynaud's - no PE - no DVT - no ILD or pneumonitis - no calcinosis OB History T0 L0 SAB0 IAB0 Ectopic0 Multiple0 Live Births0 Rheumatoid Arthritis History Rheumatoid Factor negative Anti CCP negative No erosive No rheumatoid nodules Morning stiffness (Comment: Limited duration) No joint swelling No joint replacement Extra-Articular Features / Comorbidities Sjogren's Syndrome No history of malignancy No vasculitis No episcleritis No scleritis Dry eye Dry mouth No pleural effusions No congestive heart failure No pericarditis No myocardial infarction No peripheral neuropathy No mononeuritis multiplex No anemia No neutropenia No thrombocytopenia Autoimmune Disease History KJ positive dsDNA negative no rash No sun sensitivity No alopecia No Raynaud's Dry eye Dry mouth No oral/nasal ulcers No nailfold No stroke No seizures No psychosis No pre-eclampsia / eclampsia No miscarriage No joint inflammation No pulmonary embolism No DVT No ILD or pneumonitis No calcinosis No pleurisy or pleural effusion No pericarditis or pericardial effusion No muscle weakness No skin tightening GERD No esophageal dysmotility No renal disease No kidney biopsy Seronegative Spondyloarthritis (SpA) History No ankylosing spondylitis No psoriatic arthritis No IBD-associated arthropathy Enthesitis (Comment: Historical) No dactylitis No inflammatory back pain No radiographic changes No ophthalmologic involvement Radiographic changes: no erosions Skin History No psoriatic arthritis Enthesitis - Leed's Enthesitis Index (LEI) RIGHT Achilles tendon 1 LEFT LEI Total Score 1 Inflammatory Eye Disease History no scleritis No uveitis retinal vasculitis: No nail dystrophy Inflammatory Eye Disease - Associated Conditions PATIENT FAMILY HISTORY no psoriasis no hidradenitis supparativa no sarcoidosis no IBD No multiple sclerosis no Behcet's syndrome no rheumatoid arthritis no vasculitis no psoriasis no hidradenitis supparativa Sarcoidosis (Comment: 1st Cousin) no IBD no multiple sclerosis Musculoskeletal History No joint swelling No joint replacements Patient-Entered Data SLAQ Disease Activity > 9: Detects clinically important disease Change >3.99: Significant change (0.5 SD) No data to display RAPID 3 Disease Activity Weighed Score Levels: 0 - 1: Near Remission 1.3 - 2.0: Low Severity 2.3 - 4.0: Moderate Severity 4.3 - 10.0: High Severity 09/14/2021 10/25/2022 10/02/2023 RAPID-3 Weighed Score RAPID 3 Weighed Score 6 (High Severity (HS)) Incomplete 6.33 (High Severity (HS)) 10/02/2023 RAPID-3 Weighed Score Percentage Change Compared to Last Score 5.5 PHQ-9 0 - 4: Minimal Depression 5 - 9: Mild Depression 10 - 14: Moderate Depression 15 - 19: Moderately Severe Depression 20 - 27: Severe Depression 03/26/2018 03/09/2021 10/25/2022 PHQ-9 PHQ-2 Score 0 1 1 Objective Treatment History Last Ophthalmology Check for Plaquenil (Hydroxychloroquine) Last OCT Macula Exam No resulted procedures found. Last Visual Field Exam No resulted procedures found. Relevant Previous Investigations Latest Ref Rng & Units 12/18/2014 10/31/2022 Urinalysis Protein, Urine Negative mg/dL Negative RBC, Urine 0 - 3 /HPF 0-3 Protein/Creat Ratio <0.15 mg/mg 0.09 Latest Ref Rng & Units 03/17/2020 09/15/2020 03/16/202110/3110/31/2022 CBC WBC 3.70 - 11.00 k/uL 7.66 6.32 6.84 6.69 Hemoglobin 11.5 - 15.5 g/dL 13.4 13.2 13.0 13.6 Hematocrit 36.0 - 46.0 % 39.3 39.2 39.5 41.1 Platelet Count 150 - 400 k/uL 279 291 276 318 Abs Neut (ANC) 1.45 - 7.50 k/uL 4.73 3.35 4.01 4.08 Abs Lymph 1.00 - 4.00 k/uL 2.20 2.36 2.07 1.96 Latest Ref Rng & Units 09/15/2020 03/16/2021 10/31/2022 CMP Sodium 136 - 144 mmol/L 142 141 142 Potassium 3.7 - 5.1 mmol/L 3.6 4.1 4.3 Chloride 97 - 105 mmol/L 103 104 103 CO2 22 - 30 mmol/L 27 27 29 Glucose 74 - 99 mg/dL 90 99 101 BUN 7 - 21 mg/dL 16 23 16 Creatinine 0.58 - 0.96 mg/dL 0.71 0.73 0.82 Calcium 8.5 - 10.2 mg/dL 9.8 10.0 9.9 AST 13 - 35 U/L 17 15 16 ALT 7 - 38 U/L 15 10 12 Alkaline Phosphatase 34 - 123 U/L 63 59 68 Latest Ref Rng & Units 09/15/2020 03/16/2021 10/31/2022 ESR, WSR WSR 0 - 20 mm/hr 15 13 13 Latest Ref Rng & Units 09/15/2020 03/16/2021 10/31/2022 CRP CRP <0.9 mg/dL 0.6 0.5 0.5 Latest Ref Rng & Units 10/31/2022 C3, C4 C3 86 - 166 mg/dL 145 C4 13 - 46 mg/dL 36 Latest Ref Rng & Units 04/28/2015 03/16/2021 10/31/2022 RF and CCP Rheumatoid Factor <16 IU/mL <10 <10 <10 CCP Antibody IgG Qualitative Negative Negative CCP Antibody, IgG <20 Units <15 Latest Ref Rng & Units 12/18/2014 03/16/2021 10/31/2022 Antibodies KJ Negative Positive Positive KJ by EIA <1.5 OD Ratio 1.3 KJ Titer 1:80 1:160 KJ Pattern Atypical speckled Nuclear fine speckled DNA Antibody w/Confirmation <30 IU/mL <12 <12 Anti-Sm <1.0 AI <0.2 Sm Antibody Negative <0.2 <0.2 Negative Ribosomal SUPERVISOR ENGINE REPAIR <1.0 AI <0.2 <0.2 Ribosomal SUPERVISOR ENGINE REPAIR Ab <1.0 AI <0.2 Ribosomal SUPERVISOR ENGINE REPAIR Qualitative Negative Negative Chromatin Ab <1.0 AI 0.3 Chromatin Ab Qual Negative Negative Chromatin Antibody <1.0 AI 0.3 0.3 SSA Antibody <1.0 AI <0.2 <0.2 SSA Antibody Qual Negative Negative Anti-SSA <1.0 AI 0.3 SSB Antibody <1.0 AI <0.2 <0.2 Anti-SSB <1.0 AI <0.2 SUPERVISOR ENGINE REPAIR Antibody <1.0 AI <0.2 <0.2 SUPERVISOR ENGINE REPAIR Antibody QUAL Negative Negative Scleroderma Ab Qual Negative Negative Scl-70 Abs, EIA <1.0 AI <0.2 Scleroderma Ab, IgG <1.0 AI <0.2 <0.2 Centromere Ab <1.0 AI <0.2 <0.2 <0.2 CENTROMERE AB QUAL Negative Negative EDITH-1 ANTIBODY, IGG <1.0 AI <0.2 <0.2 <0.2 EDITH 1 ANTIBODY QUAL Negative Negative Latest Ref Rng & Units 10/31/2022 TPMT amd G6PD G-6-PD Quantitative 9.8 - 15.5 U/g Hb 12.7 Last Lupus Anticoag Panel Interpretation No lab values to display. Date of Last Dexa Scan: None on file Review of Systems Review of Systems CONSTITUTION: Negative for: Fever and Recent weight change HEENT: Positive for: Dry mouth Negative for: Nosebleeds, Mouth sores and Trouble swallowing RESPIRATORY: Negative for: Cough, Shortness of breath and Pain with breathing GASTROINTESTINAL: Negative for: Melena, Diarrhea, Heartburn and Abdominal pain MUSCULOSKELETAL: Positive for: Arthralgias, Myalgias, Muscle weakness and Morning Joint Stiffness Negative for: Joint swelling NEUROLOGICAL: Positive for: Numbness Negative for: Headaches and Memory loss SKIN: Negative for: Rash, Skin changes, Hair loss and Nail changes EYES: Positive for: Eye dryness and Visual disturbance Negative for: Eye pain and Eye redness CARDIOVASCULAR: Negative for: Chest pain and Leg swelling GENITOURINARY: Negative for: Dysuria and Hematuria HEMATOLOGIC/LYMPHATIC: Negative for: Swollen glands All other reviewed and negative other than HPI. Past Medical History PAST MEDICAL HISTORY Diagnosis Date HTN (hypertension) Past Surgical History PAST SURGICAL HISTORY Procedure Laterality Date NONE Family History FAMILY HISTORY Problem Relation Age of Onset other (heart issue [Other]) Mother other (htn [Other]) Brother 2 brothers Social History Social History Tobacco Use Smoking status: Never Smokeless tobacco: Never Substance Use Topics Alcohol use: No Immunizations Current Immunizations Reviewed on 09/16/2021 Name Date influenza (IIV4) vaccine 03/17/2020 Medications Current Outpatient Medications Medication Sig buPROPion XL (WELLBUTRIN XL) 150 mg 24 hr tablet Take 150 mg by mouth once daily. hydrOXYchloroQUINE (PLAQUENIL) 200 mg tablet Take 1 tablet by mouth twice a day escitalopram oxalate (LEXAPRO) 20 mg tablet once daily. ibuprofen (MOTRIN) 400 mg tablet Take 400 mg by mouth as needed. esomeprazole (NEXIUM) 20 mg capsule Take 40 mg by mouth as needed. lisinopril-hydrochlorothiazide (PRINZIDE,ZESTORETIC) 20-12.5 mg per tablet Take 2 tablets by mouth once daily. acetaminophen (TYLENOL) 500 mg tablet Take 500 mg by mouth as needed. No current facility-administered medications for this visit. Physical Exam BP 148/78 Pulse 66 Wt 310 lb (140.6kg) Physical Exam Vitals reviewed. Constitutional: General: She is not in acute distress. Appearance: She is well-developed. HENT: Head: Normocephalic and atraumatic. Comments: No patchy alopecia, normal temporal artery pulsations, non-tender, scalp non-tender, no conjunctival injection or icterus, no oral ulcers, no thrush, no nasal bridge collapse, no cartilage swelling, no parotid gland swelling. Mouth/Throat: Pharynx: No posterior oropharyngeal erythema. Eyes: General: No scleral icterus. Cardiovascular: Rate and Rhythm: Normal rate and regular rhythm. Pulses: Normal pulses. Heart sounds: No murmur heard. No friction rub. No gallop. Pulmonary: Effort: Pulmonary effort is normal. Breath sounds: Normal breath sounds. No stridor. No wheezing, rhonchi or rales. Comments: CTA, Good respiratory effort. Abdominal: Palpations: Abdomen is soft. Tenderness: There is no abdominal tenderness. Musculoskeletal: Cervical back: Normal range of motion and neck supple. Comments: Hand osteoarthroses most prominent at b/l 1st [facility] No significant joint deformities, no rheumatoid nodules, calcifications or tophi. No SI tenderness, no collin's tenderness, no heel/plantar tenderness, lumbar flexion full, negative Alberto's test. Swoll JTS:0 Tend. JTS: 0 No clinical synovitis in the DIP's, PIP's, MCP's, wrists, elbows, shoulders, knees, ankles, midfoot, or toes. No knee effusions bilateral. Shoulder exam: FROM without pain or impingement Hip rom without pain LIMITATION of Motion of Joints: 0 Thoracic/Lumbar Spine: No percussion tenderness SLR: negative b/l, modified No instability in any upper or lower extremity joints. Skin: Capillary Refill: Capillary refill takes less than 2 seconds. Comments: No rash, no psoriasis, no purpura, no ulcers, no skin thickening/tightness, no circular telangiectasias. No clubbing,discoloration,sclerodacty ly, periungual erythema, digital ulcers, nail pitting, edema. Neurological: General: No focal deficit present. Mental Status: She is alert and oriented to person, place, and time. Sensory: No sensory deficit. Motor: No weakness. Gait: Gait normal. Psychiatric: Mood and Affect: Mood normal. Behavior: Behavior normal. SLEDAI-2K (based upon status of descriptor at the time of visit or in the preceding 30 days) documented in this encounter [facility] 08-13-2023 Miscellaneous Notes Please review and advise. Looks like images were outside of the clinic, but you are able to view images. Please let me know if you need something further. documented in this encounter [facility] 07-06-2023 Evaluation note Encounter Date Diagnosis Assessment Notes Jul, Essential hypertension (ICD-10 - I10) Jul, MICHAEL (generalized anxiety disorder) (ICD-10 - F41.1) Jul, Gastroesophageal reflux disease with esophagitis without hemorrhage (ICD-10 - K21.00) Jul, Inflammatory polyarthropathy (ICD-10 - M06.4) [employer] Other 12-26-2023 Evaluation note* Encounter Date Diagnosis Assessment Notes Treatment Notes Treatment Clinical Notes Jun, Inflammatory polyarthropathy (ICD-10 - M06.4) Continue DMARDs as prescribed by Rheum NSAIDs as needed but not encouraged due to potential adverse effects. Rest, ice and warm soaks. Voltaren Gel. OT referral? f/u Rheum Jun, MICHAEL (generalized anxiety disorder) (ICD-10 - F41.1) Healthy diet, keep active. Continue counseling. Must decide if capable of working under existing environment. Continue treatment w/o interruption Cautioned against abrupt d/c of meds Jun, Primary osteoarthritis of both first carpometacarpal joints (ICD-10 - M18.0) ROM exercises, ice/heat and Voltaren Gel. f/u Rheum Hand surgery for injections and surgical options Jun, Primary osteoarthritis, right ankle and foot (ICD-10 - M19.071) Ice, heat and Voltaren Gel. Tylenol, Tramadol as needed - not much benefit Comfortable shoes w/ inserts, f/u Podiatry Weight loss encouraged but difficult to exercise due to arthritis pain Jun, Primary osteoarthritis, left ankle and foot (ICD-10 - M19.072) Ice, heat and Voltaren Gel. Tylenol, Tramadol as needed - not much benefit Comfortable shoes w/ inserts, f/u Podiatry Weight loss encouraged but difficult to exercise due to arthritis pain Jun, Essential hypertension (ICD-10 - I10) This patient is instructed to consume a healthy, low-fat, low-salt diet. They are also encouraged to continue exercise to achieve/maintain a normal BMI. Patient is instructed on home BP measurements: - rest for 5 minutes w/o talking- positioned w/ feet on floor and arm supported- average best 2/3 readings w/ goal < 135/85 _update office w/ home readings Jun, Controlled type 2 diabetes mellitus with hyperglycemia, without long-term current use of insulin (ICD-10 - E11.65) This patient is following a comprehensive diabetic treatment plan. They are checking their feet daily for calluses and nonhealing ulcers. They are being seen for yearly dilated eye examinations. Goals: SBP less than 130, LDL less than 100, FBS less than 140, A1C less than 7%. They are checking their BS daily, will which are reviewed at the office visit. Continue regular routine monitoring of A1C,] Microalbumin, Dilated eye exam and Foot exam [employer] Other 12-07-2023 Evaluation note* Encounter Date Diagnosis Assessment Notes Treatment Notes Treatment Clinical Notes Jun, MICHAEL (generalized anxiety disorder) (ICD-10 - F41.1) [employer] Other 12-06-2023 Evaluation note* Encounter Date Diagnosis Assessment Notes Treatment Notes Treatment Clinical Notes Jun, MICHAEL (generalized anxiety disorder) (ICD-10 - F41.1) [employer] Other 11-24-2023 Evaluation note* Encounter Date Diagnosis Assessment Notes Treatment Notes Treatment Clinical Notes May, Essential hypertension (ICD-10 - I10) This patient is instructed to consume a healthy, low-fat, low-salt diet. They are also encouraged to continue exercise to achieve/maintain a normal BMI. May, Controlled type 2 diabetes mellitus with hyperglycemia, without long-term current use of insulin (ICD-10 - E11.65) This patient is following a comprehensive diabetic treatment plan. They are checking their feet daily for calluses and nonhealing ulcers. They are being seen for yearly dilated eye examinations. Goals: SBP less than 130, LDL less than 100, FBS less than 140, A1C less than 7%. They are checking their BS daily, will which are reviewed at the office visit. Continue regular routine monitoring of A1C,] Microalbumin, Dilated eye exam and Foot exam May, Inflammatory polyarthropathy (ICD-10 - M06.4) Continue Plaquenil per Rheum. f/u Rheumatology visits. ROM exercises, keep active. Tylenol as needed, Motrin as needed but take w/ food and monitor for bleeding. May, Primary osteoarthritis, right ankle and foot (ICD-10 - M19.071) Continue Tylenol and Motrin Add Tramadol at HS May, Primary osteoarthritis, left ankle and foot (ICD-10 - M19.072) Continue Tylenol and Motrin Add Tramadol at HS 24 May, 2023 Primary osteoarthritis of both first carpometacarpal joints (ICD-10 - M18.0) Voltaren Gel bid, ice/heat and ROM exercises. f/u Rheumatology [facility] [employer] Other 11-03-2023 Evaluation note* Encounter Date Diagnosis Assessment Notes Treatment Notes Treatment Clinical Notes May, Essential hypertensi on (ICD-10 - I10) This patient is instructed to consume a healthy, low-fat, low-salt diet. They are also encouraged to continue exercise to achieve/maintain a normal BMI. May, Controlled type 2 diabetes mellitus with hyperglycemia, without long-term current use of insulin (ICD-10 - E11.65) This patient is following a comprehensive diabetic treatment plan. They are checking their feet daily for calluses and nonhealing ulcers. They are being seen for yearly dilated eye examinations. Goals: SBP less than 130, LDL less than 100, FBS less than 140, A1C less than 7%. They are checking their BS daily, will which are reviewed at the office visit. Continue regular routine monitoring of A1C,] Microalbumin, Dilated eye exam and Foot exam May, MICHAEL (generalized anx iety disorder) (ICD-10 - F41.1) Encourage healthy diet and exercise Continue Lexapro and Wellbutrin. Counseling encouraged, keep active. Work is trigger for a lot of her stress and she is considering applying for SS May, Inflammatory polyarthropathy (ICD-10 - M06.4) Continue treatment w/ Tylenol and occasional OTC motrin. Keep active, healthy diet and weight loss are encouraged. f/u Rheumatology May, Sjogren''s syndrome with keratoconjunctivitis sicca (ICD-10 - M35.01) Continue Plaquenil. f/u Rheum May, Gastroesophageal ref lux disease with esophagitis without hemorrhage (ICD-10 - K21.00) Diet instructions: Smaller portions, avoid eating and laying flat, avoid eating or drinking prior to bedtime. Weight loss. May, Morbid (severe) obes ity due to excess calories (ICD-10 - E66.01) This patient has been instructed on a low-fat, high-fiber diet. They are instructed to reduce calories, portion sizes and snacks. It is recommended that they exercise for 30 minutes, 3-5 times weekly. May, Body mass index [BMI ] 50.0-59.9, adult (ICD-10 - Z68.43) [employer] Other 05-31-2023 Evaluation note* Encounter Date Diagnosis Assessment Notes Treatment Notes Treatment Clinical Notes October, Sjogren''s syndrome with keratoconjunctivitis sicca (ICD-10 - M35.01) Continue Hydroxychloroquin as prescribed. Reassured, symptoms controlled. f/u Rheumatology October, Primary osteoarthrit is of both first carpometacarpal joints (ICD-10 - M18.0) Ice, Voltaren Gel and Motrin. Short course of Prednisone Referl to Dr. Cotter October, Primary osteoarthrit is, right ankle and foot (ICD-10 - M19.071) Ice, rest and Voltaren Gel. Weight loss. Refer to Podiatry for injections October, Primary osteoarthrit is, left ankle and foot (ICD-10 - M19.072) [employer] Other 05-02-2023 NoteHNO ID: [id number] Author: Delia Rushing MD Service: ? Author Type: Physician Type: Progress Notes Filed: 11/02/2022 7:43 PM Note Text: Rheumatology CONSULTATION Referring Provider: Date of Service: 10/31/2022 Gender: female Ethnicity: White Age: [age] year old Chief Complaint: Consult (Used to see Huma Ortiz MD. Last Ov 08/2021. Here for jt pains, would like to have evaluation for Psoriatic Arthritis and wants to transfer care) Last Rheumatology visit: 09/16/2021 (with Huma Ortiz) Kassidy Corona is a 57 year old White female who presents on 10/31/2022 for in person visit for evaluation of Consult (Used to see Huma Ortiz MD. Last Ov 08/2021. Here for jt pains, would like to have evaluation for Psoriatic Arthritis and wants to transfer care). She is currently taking hydroxychloroquine sulfate. HISTORY OF PRESENT ILLNESS NEW CONSULT October 31, 2022 Ms. Corona is a very nice 57 y.o. lady, with reported PMH of HTN, gerd, Sjogren's Syndrome, osteoarthroses, depression/anxiety on bupropion and escitalopram. Never smoked Denies being diagnosed sleep apnea, has not been tested, does not believe has the symptoms. BMI >50, states has lost 65 lbs within 2 to 2.5 yrs, on Ozempic. 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 Ortiz at [facility], for Sjogren's Syndrome, on hydroxychloroquine. She would like to move closer to home and is planning to f/u with me. Discussed that Dr. Ortiz is my colleague and I am happy to follow her. She has initially seen Dr. Salcedo and when he left, transferred care to Dr. Ortiz. CC: hand pains, would like to know if has Psoriatic Arthritis States noticed changes in her nails and wondered if she could have Psoriatic Arthritis (nail ridges) Jt pains: b/l wrists, hands, fingers Majority of rt basal thumb, sometimes the rt index or pinky Today notices pinky b/l big toes, feels is the whole toe, denies discoloration States at work is constantly pumping BP cuff and typing Am stiffness: has to work her fingers because of stiffness Jt swelling: rt base of thumb, they feel like they's swollen sometimes referring to puffy fingers No history of dactylitis Enthesitis: states had history of PF and once used inserts never had an issue since No AT Rt heel post calcaneal spur, is larger and her Sample Maker Hand told her she will need surgery, states it yang and suspects may be affecting a nerve. Reports Sjogren's Syndrome stable, no concerns today. Sjogren's Syndrome since 2013 Dry eyes and mouth Denies parotid gld swelling Mouth feels like cotton in mouth, cannot eat a cracker without water At night, takes sips of water Dry eyes is anytime of the day, not limited to night time. States feels like eyes have sand in them some days Denies photosensitivity or skin rashes She has been on hydroxychloroquine prescribed by Dr. Salcedo, initially at [facility] and then refilled by Dr. Ortiz. Reviewed Dr. Ortiz's notes Follows regularly with dentist and transactional attorney. States has had cavities, still has most of her teeth She is not aware of keratoconjunctivitis sicca, but states sees it on her chart Denies being prescribed steroid eye gtts Follows with transactional attorney once a year, no Plaquenil toxicity States will be due for her next apt soon. States feeling more fatigue in past year Works Sun to from, 8 am to 8:30, 8 to 5pm, 8: 7: 30pm Family history: not aware of any history of Psoriasis or Psoriatic Arthritis Answers submitted by the patient for this visit: Review of Systems Rheumatology (Submitted on 10/25/2022) Fever : No Recent Unintentional Weight Change: No Eye Pain: No Eye Redness: No Vision Disturbance: Yes Eye Dryness: Yes Nose Bleeds: No Sores in your Mouth: No Trouble Swallowing: No Dry Mouth: Yes Chest Pain: No Leg Swelling: No A Cough: No Shortness of Breath: No Pain with Breathing: No Heartburn: No Abdominal Pain: No Diarrhea: No Black Tarry Stools: No Blood in Urine: No Pain or Burning with Urination: No Joint Pain or Stiffness: Yes Muscle Weakness: Yes Muscle Aches: Yes Joint Swelling: Yes Morning Stiffness in Joints: Yes A Rash: No Skin Color Changes: No Hair Loss: No Nail Changes: Yes- ridges, no pitting Headaches: No Numbness: No Memory Loss: No Swollen Glands: No Per Dr. Ortiz's note Per visit: 04/28/2015 'Ms. Kassidy Corona is a 49 year old White female who presents with polyarthralgia 2 yrs off and on in the past but got worse last yr. Has had polyarthralgia without swelling primarily involving the thumbs, DIPs, wrists, ankles and top of the feet, with AM stiffness 2 hrs. PCP put her on medrol pack with 90% improvement in her joint stiffness. Was feeling stomach upset and kept her awake. She did not like it. Developed shingles and was put on ac (more content not included)...[facility] 10-31-2022 Instructions* Patient Instructions* Delia Rushing MD - 10/31/2022 8:41 AM EDT -PLEASE NOTE THAT WE REVIEW ALL YOUR TEST RESULTS AT YOUR NEXT FOLLOW UP VISIT WITH YOU. IF ANY ABNORMAL LAB REQUIRES SOONER ATTENTION, WE WILL CONTACT YOU. -If you have signed up on [employer]Bump, we will release your test results through [employer]ump. I wish you the best of health and wellness. -Please take care and stay safe and healthy. Consume a healthy diet, stay well hydrated, sleep well, be happy, improve stress (include meditation and regular exercise), ensure adequate vitamin D. Spend some time in nature, around trees and morris (forest bathing). Spend time outdoors next to greenery on a [place] day to benefit from the healing benefits of the Near Infra Red light of the sun that reflects on greenery (research showing benefits to cellular healing and benefits against covid-19 infection). These have been shown to help with overall health and wellbeing, stress, inflammation and in promoting a healthy immune system. -Continuous follow up with Primary care physician, for cardiovascular disease prevention, for age appropriate cancer screening and routine health maintenance and wellness, and infection precautions and age appropriate immunization, is recommended. For dry eyes/mouth/skin: - Recommend avoiding caffeine or limiting, as much as possible - May try ground Flax seed to help with dryness as well as Biotene or ACT products - Please insure adequate hydration and water - Please use a humidifier in your bedroom, at bedtime, as this would help with the dry eyes and mouth. Please continue following with your dentist and eye doctor - Please avoid salty foods and high salt diet. hydroxychloroquine/ Plaquenil: 200 mg twice daily Please take with meals The dose is not to exceed 5 mg/ actual weight in kg/day Please continue follow up with your transactional attorney, once a year for your retinal exams to monitor for any retinopathy and to prevent risk of vision loss and blindness. Please use sun screen if you are outdoors during summer and bahman days, to avoid skin pigment changes and sunburn, as this is a risk with hydroxychloroquine. If you experience palpitations or chest pains, please stop the hydroxychloroquine and contact your Primary care physician. They will need to obtain an EKG to insure you do not have a prolonged QTc aswell as the usual cardiac work for chest pains. A large randomized controlled study, the VITAL trial, showed that the consumption of vitamin D and omega-3 supplements can lead to decreased risk of auto-immune disease, by 30% or more, especially ifthe vitamin D blood level improves to the 40's range. Citation of the vitamin D study: Neftali Caro, Martin NR, Michael EK, Maxime S, Ari J, Kathy V, Daisy G, Sai IM, Ines JE, Hal KH. Vitamin D and marine omega 3 fatty acid supplementation andincident autoimmune disease: VITAL randomized controlled trial. BMJ. 2021Jul 27;376:[id number]. doi: 1 [id number]. PMID: [id number]; PMCID: [id number]. In this study they used: 1) Vitamin D 2000 international units once daily with meals. You may need more if your blood level of vitamin D is not up to the 40 range 2) Putnam-3 1000 mg once daily I recommend plant based omega-3 (over fish oil), which is algal oil. -Vitamin D and Putnam-3 have been reported to help with inflammation and auto- immune disease and Turmeric with inflammation. You can also take Turmeric 500 to 1000 mg twice daily with meals (with black pepper) This has been reported to help with osteoarthroses and inflammatory arthropathy Turmeric is available in pill form or liquid and can be taken up to 2000 mg twice daily. Make sure there is black pepper in your meal when you take the turmeric so that it works better The black pepper could be present in the pill or can be with your meal. Those who have gallbladder or gall stone disease or on blood thinners or , cannot take it. - We have discussed Turmeric, over the counter supplement This has been reported to help with osteoarthroses and inflammatory arthropathy Turmeric is available in pill form or liquid and can be taken as 500 mg to 1000 mg twice daily withmeals. Make sure there is black pepper in your meal when you take the turmeric so that it works better The black pepper could be present in the pill or can be with your meal. Those who have gallbladder or gall stone disease or on blood thinners or , should not take Turmeric. Turmeric is a spice that is used in many culinary cuisines, such as davies. You can consume it as a spice, instead of a supplement. The dose for the spice would be 1/4 to 1/2 teaspoon twice daily with a meal. This is usually mixed with food or a nut butter or blended in a smoothie to drink- with a plant based milk and half a banana. - Maintaining good vitamin D blood levels is important for bone health and overall health. Please see additional information on vitamin D below. A vitamin D blood test, called vitamin D 25-hydroxy (OH) is obtained to assess vitamin D level. If the vitamin D is low, you will need to take a vitamin D supplement. If you are already on a vitamin D supplement, then the dose will need to be adjusted. Also you multivitamin may contain vitamin D. Vitamin D is a fat soluble vitamin that requires it be taken with good fat to be absorbed. Examplesof healthy fat include nuts, seeds, avocados, olives and for the most part the meal of the day. Spending up to 30 minutes in the sun during Summer and late Spring can provide natural vitamin D tothe uncovered skin (arms, legs) - Your calcium can be sufficient in your diet. Healthy food that are rich in calcium include: nuts, seeds, legumes/beans, peas, dark green leafy vegetables, plant based milk Additional calcium rich foods listed below - Soaking Almonds overnight in the fridge with drinking water, can help with softening the almonds and improved absorption of the almonds. Please be careful not to break a tooth with dry raw almonds,or other hard nuts or seeds. If your lab work shows insufficient calcium or you are unable to consume sufficient foods rich in calcium, then a calcium supplement is recommended, such as calcium citrate. - You can track your nutrition and calcium intake on [email or web address] This provides macro and micronutrient intake and requirements. - You can track your calcium intake on [email or web address].[email or web address] or any other calcium tracker of your choice. If you are not getting about 1200 mg of calcium daily, you will need to add a calcium supplement, such as calcium citrate to supplement you daily calcium so you can achieve your total 1200 mg daily See additional information below on calcium. - I recommend following a healthy lifestyle. You can find additional information below. I recommend this to all my patients, as I have seen convincing scientific evidence, and seen the results in my practice, of the benefits of this healthy lifestyle to overall health and wellness. I hope you will find this beneficial as well. A whole plant based diet and healthy lifestyle have been reported to be optimal for health in general, anti-inflammatory diet, prevention of common chronic diseases, healthy weight management, memoryand brain healthy, bone health. - You can track your nutrition and calcium intake on [email or web address].[email or web address] This provides macro and micronutrient intake and requirements. Recommendations for healthy lifestyle include: Healthy nutritious diet, anti-inflammatory diet, appropriate exercise, good sleep hygiene, stress management, supplementing vital deficiencies and maintaining healthy weight. with BMI that does not exceed 25 to 26 . 5 points to remember to improve your health and continue on a healthy path: 1- Optimal nutritious food, such as a Whole Plant Based diet You can watch the documentary movie that features the Whole Plant Based diet, [place] over knives (see video online and visit website). Another movie that was recently released is: Eating You Alive (you can find it at [employer]) and The blueKiwi ChangeSurfEasy movie Dr. Adelaida Wilcox is a [facility] physician who is an expert in Whole Plant based diet. His website is [employer]. His research highlights the benefits of the Whole food plant based diet in reversing and preventing heart disease. Mrs. Wilcox (his ) has a cookbook with many recipes on whole plant based food: The Prevent and Reverse Heart Disease cookbook. You can also consider reading his son, Jorge Wilcox's book: The Engine 2 cookbook Jorge is a retired online editor who has helped many people get healthier by following the whole food plantbased diet. Dr. Joaquín Jc, has a website and free allyssa to help get started on a whole plant based diet, at www.pcrm.org and you can log on for free for his 21-Day Kickstart with meals and recipes to follow for21 days. There is also a free allyssa for that. He has multiple free videos and YouTube, for example: Isowalk tps://Prescientu.be/dmbChkzF4d8 , https://youBespoke Globalu.be/DjRWJbcrl1a He has written multiple books, including [employer] for the Brain, The Cheese Trap, Dr. Joaquín Jc's Program for Reversing Diabetes, Your Body in Balance Dr. Ross White has shown the benefit of a starch based whole food plant based diet to his Rheumatoid Arthritis patients, as well as patient with diabetes II, hypertension, obesity, multiple sclerosis, heart disease, acne, and other, his website: [email or web address].juan [email or web address] Dr. Tess Padgett is a renowned lab scientist, who has studied and researched the benefits of the Whole plant based diet. He has also researched the adverse effects of animal proteins on health. He presents many of his research findings in his book The [place] study. Dr. Rodrigo Hernandes has completed many research trials proving the reversal of diseases, such as heart disease and early prostate cancer, with healthy lifestyle and the Whole Plant based diet. Dr. Rodrigo Hernandes website is: [email or web address] His new book: Undo It, has evidence based information and guide to following this healthy lifestyle. Dr. Arnulfo Goyal has dedicated a website and additional time to reviewing all food related articles and research and presents them in his power point presentation and on his website at: nutritionfacts.org which is all free. Dr. Goyal has multiple free videos and YouTube, for example [email or web address].[email or web address] and [email or web address]. He has written multiple books including: How Not To and How Not To Diet He is now working on his next book: How Not To Age Dr. Colette Murray (from the [facility]), has articles on the following website: [email or web address] For additional ideas on recipes, you could find additional information on practical to follow recipes by reading or watching online and YouTube such as: Chef [employer], Cooking With Plants, The Vegan Corner(recipes from an [place]ese Junior Automation Engineer), The Whole Foods Plant Based Cooking Show and visiting the provided websites for additional information on the whole plant based benefit and cooking recipes. You can also consider watching the vlogs of some of the plant based Athletes such as Jose Rutledge Derek on [employer]. You can find very good recipes for making easy tasty whole plant based foods and for free at the following YouTube channels: - Yun Huddleston (is a nurse RN) - The Whole Food Plant Based Cooking Show - Well Your World - Chew on Vegan (is a nurse RN) -The Jero Family - A Plant Based (is a nurse RN) - Epic Mint Leaves - Broccoli Mum Dr. Elidia Douglas (a psychiatrist who suffered with lupus) has helped reverse her Systemic Lupus Erythematosus and helps many patients with their auto-immune diseases, based on her recommendations of the whole food plant based diet and the green smoothies. She has a facebook and website, and on youtube her channel is: Goodbye Lupus Some people have adverse effect or intolerance to gluten. Certain patients with auto-immune disease, including auto-immune thyroid disease, need to avoid gluten. If you suspect you are gluten sensitive or intolerant, you will need to consult with a steel handler to have further evaluation to exclude Celiac disease. If Celiac disease is excluded, but you are gluten intolerant, then you can follow a gluten free diet. Gluten could lead to increased inflammation in the bowels and body in certain patients. Not all your food has to be organ if you cannot afford or find them. Consider organic and non-GMO products when shopping for your food, when possible. GMO are genetically modified food that may have adverse impact on our health. If you are unable to purchase organic of non-GMO, you can wash your produce with white vinegar or soak in baking soda and water (see details from Dr. Stoner's website nutritionfacts.org) and rinse well with water. 2- Regular Exercise, such as beginner yoga, trey chi, stretching, cardio, gradual strengthening, pool therapy, physical therapy Come As You Are: YOGA - Gentle Yoga Anyone Can Do Anywhere [email or web address] Also on youtube: yoga with Surekha 3- Good Sleep (poor sleep impacts everything, recommended sleep is 7.5 to 8 hrs. a night). Certain people need less or more sleep. Meditation and relaxation techniques have shown to help with improving sleep. 4- Stress management, staying positive, be happy, laugh often (it is a great medicine) Find time to relax and meditate if possible. Following steps 1-3 will help with this as well. In psychiatric disorders, it is important to follow with a professional on the optimal management of depression, anxiety or psychiatric illness 5- Supplements Supplementing necessary vitamins and minerals, correcting any deficiencies, i.e. Vitamin D, B12, omega-3 fatty acids etc... Go natural when possible -Important notice: If you are following a Whole plant based diet, it is recommended to take [id number], sublingual, dissolve under the tongue, take once daily. Vitamin B12 is available over the counter, dose could be 2500 mcg, and can be taken once a week, and if your blood levels are low, you mayneed to take it once daily or a higher dose. Raw: Garlic, Cilantro, [place] nuts, Pumpkin seeds, [place] seeds and Flax seed powder have been reported to help with certain metal detoxification such as mercury. Putnam-3 plant based rich foods are good anti-inflammatory sources such as : mark seeds, flax seed (needs to be ground), walnuts, hemp seeds, dark green leafy vegetables. It is important to avoid refined oils as much as possible especially that many have too much omega-6 that is pro-inflammatory (lead to inflammation as well as concern for heart and vascular disease). Turmeric can be found natural, used as the spice powder or the root with your food. This is also available as a capsule. If you are on a blood thinner, you will need to discuss with your pharmacist or physician before taking Turmeric If you have gall bladder disease or gall bladder stones, it is recommended to avoid turmeric capsules. Sweet cherries (raw cleaned or frozen), Turmeric , pineapple (contains bromelain), omega-rich foods, have anti-inflammatory benefit Start reviewing the Whole Plant Based Diet, by watching [place] over [employer]ability movie and then review website. There are many other resources and educational information on the Whole plant based diet on the Internet and documentaries. There are other resources for wellness that you can also benefit from, such as the [facility] website, [email or web address] and includes Plant based and Mediterranean diet, yoga and meditation. Please avoid all dairy products. You could use non-dairy milk such as Flax milk, Cashew milk, Concord milk, Rice milk, Oat milk or Hemp milk, instead. It is very important to avoid all: refined sugars (including high fructose syrup), refined carbohydrates, any artificial sweeteners and artificial preservatives, and soda and heavily processed food. Insure adequate hydration; drink at least 6 to 8 cups of water daily, certain people need less or more. - You don't have to drink smoothies, but if you have a sweet tooth or enjoy a desert or something sweet every day, a smoothie can help satisfy that and would help you avoid eating refined foods and added sugars or snacking on unhealthy foods. Also smoothies can help you get a lot of green leafy vegetables in your system, especially if you have a busy schedule and don't have time to eat a lot of greens. You can start your day with a smoothie, especially if you are busy and don't have time to eat your oatmeal or veggies and fruits in the morning. Examples of Smoothies: You can try many of the healthy natural anti-inflammatory smoothies listed below, just add the ingredients to your honey grader and blender and blend: - Probably the healthiest smoothie is one that contains mostly green leafy vegetables (especially containing kale), some berries, flax seed and water. This might not bottom turner to be sweet. You can addone or two pitted dates or a frozen banana for natural sweetness. Examples of healthy green smoothies, pack your honey grader and blender (at least half way to 3/4) with a mix of green leafy veggies, then top your honey grader and blender with fruits (such as banana or frozen gilbert or pineapple, peaches, apricots, apples, grapes), a tablespoon of flax or mark seeds, then add water or unsweetened coconut water and blend until smooth. You can also add turmeric in this recipe. Do not only use spinach as they tend to be high in oxalates and can be risk for kidney stones. The same with albanian chards and beet leaves. If you don't like the taste of green leafy veggies in your smoothie, start gradually with one handful and add fruits to help with the taste. Another smoothie can be: - Fresh or frozen berries (such as frozen sweet cherries, blueberries, strawberries), a peeled frozen banana, green leafy vegetables (mixed greens or kale, not just spinach), 1 tablespoon of flax seed or mark seeds or a few walnuts, for liquid you can add water or an unsweetened plant based milk (can be soy, flax milk, almond milk), blend and enjoy. For anti-inflammatory boost add: Turmeric: half a root of turmeric (1 to 2 inches) or 1/4 dried turmeric powder along with a sprinkle of black pepper. This might change the flavor. You could add a quarter or half an avocado if you like it smoother and for a low fat option and less calories you can add instead a well cooked peeled sweet potato. -Tips on smoothies: To keep your green smoothies vibrant green, and not turn brown, keep the fruits that are yellow or orange in color only. Adding a cooked sweet potato can add sweetness and smooth texture to your smoothie. Adding beets to your smoothies can add sweetness and boost your nitric oxide. Beets are healthy forthe heart, and they can bring blood pressure down. Beets have been reported to help with sports performance. For extra natural plant based proteins, you can add half a block of tofu or cooked chickpeas (or cannellini beans). Black beans can be added, they will turn your smoothie darker. If you do not tolerate walnuts, you can use flax seeds, mark seeds or hemp seeds instead. If you do not like plant based milk, you can use coconut water or plain water instead. Avoid coconut milk and cream as it is high in saturated fat. You can add 1/4 to 1/2 cup of oats in your smoothies if you need more calories and need it to sustain you for longer. The lebron with smoothies is to drink (sip) them slowly, over an hour. GENERAL INFORMATION ON BONE HEALTH : -Bone Density testing (DXA scan) as recommended. -Vitamin D supplementation is recommended, unless blood levels are sufficient. Recommended daily dose of 1000 to 2000 IU total a day, or the dose necessary to achieve a Vitamin D25-OH blood level of >31 and preferably closer to 40-60 ng/mL. Vitamin D pills are available over the counter. -Recommended daily dose of calcium: 1200mg total a day in divided doses. Calcium is usually sufficient in our regular diet, also available in multivitamins. Patients on certain dietary restrictions or those unable to meet their daily calcium by diety alone, may require calcium supplements. For patient with history of calcium kidney stones, Calcium Citrate would be the recommended supplement. It is recommended to avoid caclium carbonate supplement in this case, as these may increase risk of calcium kidney stones. The after visit summary has information on dietary calcium and instructions on reading calcium label and converting the %DV to mg. When you read a food label and you see calcium reported as DV %, add a zero and this will provide you with the approximate mg value of the calcium content in this food. For example, if a glass of almond milk is labeled as 40% calcium DV, then this contains 400 mg of calcium. For additional information, please see references provided. -Regular weight-bearing and muscle-strengthening exercise -Avoidance of tobacco smoking, excessive alcohol intake and excessive caffeine intake. -Fall and fracture precautions -It is recommend to continue regular follow up visits with your dentist every 6 months, and continue with good oral hygiene. Calcium: If your diet is sufficient in Calcium rich food, you will not need calcium supplement. Calcium Citrate is the preferred calcium if you have had kidney stones. Daily recommended calcium dose: 600mg twice a day with meals. Adequate calcium ingestion is essential for maintaining healthy bones. The recommended dose daily intake of calcium varies depending on individual needs but is usually between 1200 and 1500mg daily, preferably around 1200mg a day in divided dose (not all taken at once). This is equivalent to about five 8oz glasses of milk per day. Many foods are rich in calcium and they include: - Plant based, non-dairy, calcium rich products, include nuts, almond milk, beans, lentils - Vegetables and Fruit: bok-velazquez, turnips, broccoli, kale, collards, - Dairy products: milk, cheese, yogurt, ice-cream - Fish products: canned salmon, sardines and shrimp - Cereals and nuts: almonds, sesame seeds, fortified cereals and oatmeal - Other foods: fortified orange-juice, figs, soybeans, other beans and eggs. If you have a low calcium diet and cannot tolerate calcium-rich foods, many supplements are available today. Your pharmacist can help you choose the one which best suits your needs. A few tips on supplements: - They should be easy to swallow - They should dissolve easily in cup of vinegar in < 15 minutes. - Count the ELEMENTAL calcium mgs. E.g. Calcium 499mg may have only 221mg of elemental Calcium. - Calcium citrate is the calcium supplement to take if you have had kidney stones and unable to meet your calcium requirements from food/diet alone. - There is such a variety today that it is best to bring in the bottle to your doctor to show them exactly what you are taking. Lastly too much calcium can be bad for you. Recent studies show extra supplements may increase yourrisk of kidney stones or cause high calcium levels in some people. You should discuss how much you should be taking with your doctor before starting them. Further Information is available from the following resources: www.nof.org (National Osteoporosis Foundation) http://www.osteo.org/osteolinks.asp [facility]: 5-352-830-BONE The Calcium Information [place]: -Non-Dairy, Plant based Milk, can contain in1 glass up to 450 mg of calcium (300 to 450 mg) Exampled include Oat Milk, Flax Milk, [place] Milk, Cashew Milk, Soy Milk, Peas Milk general health and well being Examples of Food Sources of Calcium from [facility] Food Milligrams (mg) per serving Percent DV* Soymilk, calcium-fortified, 8 ounces 299 30 [place] juice, calcium-fortified, 6 ounces 261 26 Tofu, firm, made with calcium sulfate, cup* 253 25 Tofu, soft, made with calcium sulfate, cup* 138 14 Tibxr-vl-qif cereal, calcium-fortified, 1 cup 100-1,000 10-100 Turnip greens, fresh, boiled, cup 99 10 Kale, raw, chopped, 1 cup 100 10 Kale, fresh, cooked, 1 cup 94 9 Bahraini cabbage, bok velazquez, raw, shredded, 1 cup 74 7 Bread, white, 1 slice 73 7 Tortilla, corn, ehksy-pv-srdj/fagan, one 6 diameter 46 5 Tortilla, flour, dpwdr-ul-yvhb/fagan, one 6 diameter 32 3 Bread, whole-wheat, 1 slice 30 3 Broccoli, raw, cup 21 2 * DV = Daily Value. DVs were developed by the U.S. Food and Drug Administration to help consumers compare the nutrient contents among products within the context of a total daily diet. The U.S. Department of Agriculture s (USDA s) Nutrient Database Web site lists the nutrient contentof many foods and provides comprehensive list of foods containing calcium arranged by nutrient content and by food name. *Calcium content varies slightly by fat content; the more fat, the less calcium the food contains. * Calcium content is for tofu processed with a calcium salt. Tofu processed with other salts does not provide significant amounts of calcium. You could acces this information online at: http://ods.od.nih.gov/factsheets/Calcium-HealthProfessional/ Vitamin D: Vitamin D3= cholecalciferol, available over the counter. Dose recommended 800 to 1000 iu daily with a meal; Certain patients require 1021-3743 iu daily and in patients deficient in Vitamin D, they require higher dosages. Certain patient requires higher dose, depending on their Vit D blood levels. Vitamin D is essential for calcium metabolism. It is really a hormone produced mainly in your skin after exposure to sunlight. Vitamin D helps you absorb calcium from your stomach and kidneys and incorporates it into your bones. Studies show approximately 50% of [place] men and women are vitamin D deficient in the winter. Milder cases of vitamin D are usually asymptomatic so the only way to know you have a problem is to have a blood level checked. More severe cases can cause osteomalacia(a.k.a. rickets) which can result in bone pain, weak bones and several abnormal laboratory tests and also weak muscles (a.k.a. myopathy). When this happens, your bones lose a lot of their calcium stores as the body tries to regulate the calcium required by other tissues. Prolonged deficiency can lead to severe bone disorders and fractures. Unlike calcium, dietary sources of vitamin D are rare, limited to a few fish oils particularly cod-liver oil, other fortified foods and egg yolks. and most are unhealthy. Natural source of vitamin D is through sunshine. This is usually during bahman seasons, for example a 30 minute exposure to sunshine. Some people are unable to be exposed to the sun due to skin condition. Often supplementation isneeded. Many multivitamins contain some vitamin D and vitamin D alone preparations are now available in several forms. The recommended daily intake of vitamin D used to be 400 and 800 international units, however, it is now known that larger amounts are needed, as discussed above. Your doctor can prescribe prescription strength vitamin D for you if necessary, if you have marked deficiency or diseases of the liver or kidney. Supplementation in patients with severe deficiency can stabilize or improve bone mineral density and in frail elderly persons, may reduce their risk of falling. Additional Information is available from: www.nof.org (the national osteoporosis foundation) http://www.[facility].org/arthritis/osteo/info.htm http://ods.od.nih.gov/factsheets/vitamind.asp [facility]: 5-585-125-BONE [facility] Information [place]: At the [facility], we work as a team for your care, along with Nurse Practitioners, PhysicianAssistants, Nurses and Medical Assistants. It is a privilege and honor to serve you. Thank you for choosing The [facility] for your healthcare. Sincerely, Delia Navarro MD [facility] History of Present illness Narrative* Delia Rushing MD - 10/31/2022 7:43 AM EDT Images from the original note were not included. Rheumatology CONSULTATION Referring Provider: Date of Service: 10/31/2022 Gender: female Ethnicity: White Age: [age] year old Chief Complaint: Consult (Used to see Huma Ortiz MD. Last Ov 08/2021. Here for jt pains, would like to have evaluation for Psoriatic Arthritis and wants to transfer care) Last Rheumatology visit: 09/16/2021 (with Huma Ortiz) Kassidy Corona is a 57 year old White female who presents on 10/31/2022 for in person visit for evaluation of Consult (Used to see Huma Ortiz MD. Last Ov 08/2021. Here for jt pains, would like to have evaluation for Psoriatic Arthritis andwants to transfer care). She is currently taking hydroxychloroquine sulfate. HISTORY OF PRESENT ILLNESS NEW CONSULT October 31, 2022 Ms. Corona is a very nice 57 y.o. lady, with reported PMH of HTN, gerd, Sjogren's Syndrome, osteoarthroses, depression/anxiety on bupropion and escitalopram. Never smoked Denies being diagnosed sleep apnea, has not been tested, does not believe has the symptoms. BMI >50, states has lost 65 lbs within 2 to 2.5 yrs, on Ozempic. 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 Ortiz at [facility], for Sjogren's Syndrome, on hydroxychloroquine. She would like to move closer to home and is planning to f/u with me. Discussed that Dr. Ortiz is my colleague and I am happy to follow her. She has initially seen Dr. Salcedo and when he left, transferred care to Dr. Ortiz. CC: hand pains, would like to know if has Psoriatic Arthritis States noticed changes in her nails and wondered if she could have Psoriatic Arthritis (nail ridges) Jt pains: b/l wrists, hands, fingers Majority of rt basal thumb, sometimes the rt index or pinky Today notices pinky b/l big toes, feels is the whole toe, denies discoloration States at work is constantly pumping BP cuff and typing Am stiffness: has to work her fingers because of stiffness Jt swelling: rt base of thumb, they feel like they's swollen sometimes referring to puffy fingers No history of dactylitis Enthesitis: states had history of PF and once used inserts never had an issue since No AT Rt heel post calcaneal spur, is larger and her Sample Maker Hand told her she will need surgery, states itburns and suspects may be affecting a nerve. Reports Sjogren's Syndrome stable, no concerns today. Sjogren's Syndrome since 2013 Dry eyes and mouth Denies parotid gld swelling Mouth feels like cotton in mouth, cannot eat a cracker without water At night, takes sips of water Dry eyes is anytime of the day, not limited to night time. States feels like eyes have sand in them some days Denies photosensitivity or skin rashes She has been on hydroxychloroquine prescribed by Dr. Salcedo, initially at [facility] and then refilled by Dr. Ortiz. Reviewed Dr. Ortiz's notes Follows regularly with dentist and transactional attorney. States has had cavities, still has most of her teeth She is not aware of keratoconjunctivitis sicca, but states sees it on her chart Denies being prescribed steroid eye gtts Follows with transactional attorney once a year, no Plaquenil toxicity States will be due for her next apt soon. States feeling more fatigue in past year Works Sun to from, 8 am to 8:30, 8 to 5pm, 8: 7: 30pm Family history: not aware of any history of Psoriasis or Psoriatic Arthritis Answers submitted by the patient for this visit: Review of Systems Rheumatology (Submitted on 10/25/2022) Fever : No Recent Unintentional Weight Change: No Eye Pain: No Eye Redness: No Vision Disturbance: Yes Eye Dryness: Yes Nose Bleeds: No Sores in your Mouth: No Trouble Swallowing: No Dry Mouth: Yes Chest Pain: No Leg Swelling: No A Cough: No Shortness of Breath: No Pain with Breathing: No Heartburn: No Abdominal Pain: No Diarrhea: No Black Tarry Stools: No Blood in Urine: No Pain or Burning with Urination: No Joint Pain or Stiffness: Yes Muscle Weakness: Yes Muscle Aches: Yes Joint Swelling: Yes Morning Stiffness in Joints: Yes A Rash: No Skin Color Changes: No Hair Loss: No Nail Changes: Yes- ridges, no pitting Headaches: No Numbness: No Memory Loss: No Swollen Glands: No Per Dr. Ortiz's note Per visit: 04/28/2015 'Ms. Kassidy Corona is a 49 year old White female who presents with polyarthralgia 2 yrs off and on in the past but got worse last yr. Has had polyarthralgia without swelling primarily involving the thumbs, DIPs, wrists, ankles and top of the feet, with AM stiffness 2 hrs. PCP put her on medrol pack with 90% improvement in her joint stiffness. Was feeling stomach upset and kept her awake. She did not like it. Developed shingles and was put on acyclovir x 1 week, and the rash is better in her back. Medication use: (+) NSAID, (-) MTX, (- ) hydroxychloroquine when she saw Dr. Salcedo in November 2014. Functional status: able to perform normal basic ADLs without any limitations. 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 [Case definition for Sj gren's syndrome (October 2011): At least 2 of the following 3: 1) positive serum anti-SSA and/or anti-SSB or (positive rheumatoid factor and antinuclear antibody titer >1:320), 2) ocular staining score >3, or 3) presence of focal lymphocytic sialadenitis with a focus score >1 focus/4 mm2 in labial salivary gland biopsy samples. Arthritis Care & Research. Vol. 64, No. 4, October 2011, pp [id number]] Diagnosis of Sjogren was based on Aminah's tear test [was 6/10 in both eyes]. Had ocular stainingscore - report? She will fax. She has fatigue +. Affected by weather. No brain fog. Joint pains are 75% better with Plaquenil, compared to before starting Plaquenil. Using Refresh - helps. Drinks a lot of water. Not on Restasis at this time. Outside tests were reviewed and pertinent results summarized as below. Outside Labs: 11/06/14 KJ 1:160 ASO 148 cmp wnl, glu 121, cr 0.65 LH 2.88, RF neg .. PROBLEM LIST Keratoconjunctivitis Sicca, in Sjogren's Syndrome (Hcc) Essential Hypertension Primary Osteoarthritis Involving Multiple Joints Morbid Obesity With Bmi of 50.0-59.9, Adult (Hcc) Polyarthralgia ... Assessment: Sjogren syndrome Osteoarthritis of first CMC joints. Lumbar degenerative disc disease H/o depression/anxiety Hypertension Recommendations: 1. Will check labs. 2. Continue current medications. 3. Follow up in 6 months. - Huma Ortiz MD PAIN EVALUATION 10/25/2022 2140 Pain Level: 7 Pain Location: Hand-Right Description: Aching;Burning;Cramping;Stiffness;Tightness Duration Units: Hours Frequency: Continuous Intervention/Comfort measure: Medication Comments: Pain is becoming worse lasts all day also stiffness lasts longer many areas affected bilateral hands wrists feet ankles some days knees bilateral hips feel stiff last year getting worse Disease History Seronegative Spondyloarthritis (SpA) History No ankylosing spondylitis Enthesitis No dactylitis No inflammatory back pain No radiographic changes No ophthalmologic involvement Radiographic changes: no erosions Enthesitis - Leed's Enthesitis Index (LEI) RIGHT Achilles tendon 1 LEFT LEI Total Score 1 Osteoporosis FRAX Risk Factors No rheumatoid arthritis Rheumatoid Arthritis History Rheumatoid Factor negative Anti CCP negative No erosive No rheumatoid nodules Morning stiffness Morning stiffness persists for: 45 minutes No joint swelling No joint replacement Extra-Articular Features / Comorbidities Sjogren's Syndrome No history of malignancy No vasculitis No episcleritis No scleritis Dry eye Dry mouth No pleural effusions No congestive heart failure No pericarditis No myocardial infarction No peripheral neuropathy No mononeuritis multiplex No anemia No neutropenia No thrombocytopenia Systemic Lupus Erythematosus (SLE) History Relevant to SLICC Classification Criteria - no nonscarring alopecia - no oral ulcers OR nasal ulcers - no chronic cutaneous lupus - no subacute cutaneous lupus OR Acute cutaneous lupus - no synovitis involving two or more joints - no neurologic (seizures, psychosis, mononeuritis complex. Myelitis or neuropathy) - no serositis - no hemolytic anemia - no leukopenia (<4000/mm3) OR Lymphopenia (<1000/mm3) - no thrombocytopenia (<100,000/mm3) - no lupus nephritis - KJ positive (Comment: 1:80 titer, atypical speckled) - no anti-dsDNA antibody - no Anti-Moran antibody Relevant to New ACR and EULAR Classification Criteria - no fever - no nonscarring alopecia - no oral ulcers - no subacute cutaneous or discoid lupus - no acute cutaneous lupus - no synovitis in at least two joints, or tenderness in at least two joints, AND at least 30 min ofmorning stiffness - no delirium - no psychosis - no seizure - no pleural or pericardial effusion - no acute pericarditis - no leukopenia - no thrombocytopenia - no autoimmune hemolysis - KJ > 1:80 on human [id number] cells, or an equivalent positive test (Comment: 1:80titer, atypical speckled) - no anti-dsDNA antibody - no Anti-Moran antibody Other History Relevant to SLE - no stroke - no pre-eclampsia or eclampsia - no miscarriage - no Raynaud's - no PE - no DVT - no ILD or pneumonitis - no calcinosis Progressive Systemic Sclerosis (PSS) History No Raynaud's GERD Autoimmune Disease History KJ positive (Comment: 1:80 titer, atypical speckled) dsDNA negative no rash No sun sensitivity No alopecia No Raynaud's Dry eye Dry mouth No oral/nasal ulcers No nailfold No stroke No seizures No psychosis No pre-eclampsia / eclampsia No miscarriage No pulmonary embolism No DVT No ILD or pneumonitis No calcinosis No pleurisy or pleural effusion No pericarditis or pericardial effusion No muscle weakness No skin tightening GERD No esophageal dysmotility No renal disease No kidney biopsy Gout History RISK FACTORS No congestive heart failure Inflammatory Eye Disease History no scleritis No uveitis retinal vasculitis: No nail dystrophy Inflammatory Eye Disease - Associated Conditions PATIENT FAMILY HISTORY no psoriasis no hidradenitis supparativa no sarcoidosis no IBD No multiple sclerosis no Behcet's syndrome no rheumatoid arthritis no vasculitis no psoriasis no hidradenitis supparativa Sarcoidosis (Comment: 1st Cousin) no IBD no multiple sclerosis Musculoskeletal History No joint swelling No joint replacements Musculoskeletal History No joint swelling No joint replacements Treatment History Last Ophthalmology Check for Plaquenil (Hydroxychloroquine) Last OCT Macula Exam No resulted procedures found. Last Visual Field Exam No resulted procedures found. Relevant Previous Investigations CBC Latest Ref Rng & Units 03/17/2020 09/15/2020 03/16/2021 10/31/2022 WBC 3.70 - 11.00 k/uL 7.66 6.32 6.84 6.69 HEMOGLOBIN 11.5 - 15.5 g/dL 13.4 13.2 13.0 13.6 HEMATOCRIT 36.0 - 46.0 % 39.3 39.2 39.5 41.1 PLATELETS 150 - 400 k/uL 279 291 276 318 ABS NEUT (ANC) 1.45 - 7.50 k/uL 4.73 3.35 4.01 4.08 ABS LYMPH 1.00 - 4.00 k/uL 2.20 2.36 2.07 1.96 CMP Latest Ref Rng & Units 03/17/2020 09/15/2020 03/16/2021 10/31/2022 SODIUM 136 - 144 mmol/L 142 142 141 142 POTASSIUM 3.7 - 5.1 mmol/L 3.9 3.6(L) 4.1 4.3 CHLORIDE 97 - 105 mmol/L 102 103 104 103 CO2 22 - 30 mmol/L 30 27 27 29 GLUCOSE 74 - 99 mg/dL 94 90 99 101(H) BUN 7 - 21 mg/dL 13 16 23(H) 16 CREATININE 0.58 - 0.96 mg/dL 0.75 0.71 0.73 0.82 CALCIUM, TOTAL 8.5 - 10.2 mg/dL 9.9 9.8 10.0 9.9 AST 13 - 35 U/L 25 17 15 16 ALT 7 - 38 U/L 18 15 10 12 ALKALINE PHOSPHATASE 34 - 123 U/L 57 63 59 68 ESR, WSR Latest Ref Rng & Units 03/19/2019 09/15/2020 03/16/2021 10/31/2022 WSR 0 - 20 mm/hr 17 15 13 13 CRP Latest Ref Rng & Units 03/19/2019 09/15/2020 03/16/2021 10/31/2022 CRP <0.9 mg/dL 0.6 0.6 0.5 0.5 C3, C4 Latest Ref Rng & Units 10/31/2022 C3 86 - 166 mg/dL 145 C4 13 - 46 mg/dL 36 RF and CCP Latest Ref Rng & Units 12/18/2014 04/28/2015 03/16/2021 10/31/2022 RHEUMATOID FACTOR <16 IU/mL - <10 <10 <10 CCP ANTIBODY IGG QUALITATIVE Negative - - - Negative CCP ANTIBODY, IGG <20 Units <15 - - <15 Antibodies Latest Ref Rng & Units 12/18/2014 03/16/2021 10/31/2022 KJ Negative - Positive(A) Positive(A) KJ BY EIA <1.5 OD Ratio 1.3 - - KJ TITER - - 1:80(A) 1:160 KJ PATTERN - - Atypical speckled Nuclear fine speckled DNA ANTIBODY W/CONFIRMATION <30 IU/mL - <12 - ANTI-SM <1.0 AI - - <0.2 SM ANTIBODY Negative <0.2 <0.2 Negative RIBOSOMAL SUPERVISOR ENGINE REPAIR <1.0 AI <0.2 <0.2 - RIBOSOMAL SUPERVISOR ENGINE REPAIR AB <1.0 AI - - <0.2 RIBOSOMAL SUPERVISOR ENGINE REPAIR QUAL Negative - - Negative CHROMATIN AB <1.0 AI - - 0.3 CHROMATIN AB QUAL Negative - - Negative CHROMATIN ANTIBODY <1.0 AI 0.3 0.3 - SSA ANTIBODY <1.0 AI <0.2 <0.2 - SSA ANTIBODY QUAL Negative - - Negative ANTI-SSA <1.0 AI - - 0.3 SSB ANTIBODY <1.0 AI <0.2 <0.2 - ANTI-SSB <1.0 AI - - <0.2 SUPERVISOR ENGINE REPAIR ANTIBODY <1.0 AI <0.2 <0.2 - SUPERVISOR ENGINE REPAIR ANTIBODY QUAL Negative - - Negative SCL-70 AB QUAL Negative - - Negative SCL-70 ABS, EIA <1.0 AI - - <0.2 SCLERODERMA AB, IGG <1.0 AI <0.2 <0.2 - CENTROMERE AB <1.0 AI <0.2 <0.2 <0.2 CENTROMERE AB QUAL Negative - - Negative EDITH-1 ANTIBODY, IGG <1.0 AI <0.2 <0.2 <0.2 EDITH 1 ANTIBODY QUAL Negative - - Negative Urinalysis Latest Ref Rng & Units 12/18/2014 10/31/2022 PROTEIN, URINE Negative mg/dL Negative - RBC, URINE 0 - 3 /HPF 0-3 - PROTEIN/CREATININE RATIO <0.15 mg/mg - 0.09 TPMT amd G6PD Latest Ref Rng & Units 10/31/2022 G-6-PD QUANTITATIVE 9.8 - 15.5 U/g Hb 12.7 Imaging / Studies Last XR Sacroiliac - Impression Only No resulted procedures found. Last MRI Hip/Pelvis - Impression Only No resulted procedures found. Last CT Hip/Pelvis - Impression Only No resulted procedures found. Review of Systems Review of Systems CONSTITUTION: Negative for: Fever and Recent weight change HEENT: Positive for: Dry mouth Negative for: Nosebleeds, Mouth sores and Trouble swallowing RESPIRATORY: Negative for: Cough, Shortness of breath and Pain with breathing GASTROINTESTINAL: Negative for: Melena, Diarrhea, Heartburn and Abdominal pain MUSCULOSKELETAL: Positive for: Arthralgias, Myalgias, Muscle weakness, Joint swelling and Morning Joint Stiffness NEUROLOGICAL: Negative for: Headaches, Numbness and Memory loss SKIN: Positive for: Nail changes Negative for: Rash, Skin changes and Hair loss EYES: Positive for: Eye dryness and Visual disturbance Negative for: Eye pain and Eye redness CARDIOVASCULAR: Negative for: Chest pain and Leg swelling GENITOURINARY: Negative for: Dysuria and Hematuria HEMATOLOGIC/LYMPHATIC: Negative for: Swollen glandsAll other reviewed and negative other than HPI. Problem List ACTIVE PROBLEM LIST Keratoconjunctivitis Sicca, in Sjogren's Syndrome (Hcc) Essential Hypertension Primary Osteoarthritis Involving Multiple Joints Morbid Obesity With Bmi of 50.0-59.9, Adult (Hcc) Polyarthralgia Primary Arthrosis of First Carpometacarpal Joints, Bilateral Past Medical History PAST MEDICAL HISTORY Diagnosis Date HTN (hypertension) Past Surgical History PAST SURGICAL HISTORY Procedure Laterality Date NONE Family History FAMILY HISTORY Problem Relation Age of Onset other (heart issue [Other]) Mother other (htn [Other]) Brother 2 brothers Social History Social History Tobacco Use Smoking status: Never Smokeless tobacco: Never Substance Use Topics Alcohol use: No Medications Current Outpatient Medications Medication Sig semaglutide (OZEMPIC) 0.25 mg or 0.5 mg (2 mg/3 mL) pen Inject subcutaneously one time a week. buPROPion XL (WELLBUTRIN XL) 150 mg 24 hr tablet Take 150 mg by mouth once daily. hydrOXYchloroQUINE (PLAQUENIL) 200 mg tablet Take 1 tablet by mouth twice a day escitalopram oxalate (LEXAPRO) 20 mg tablet once daily. ibuprofen (MOTRIN) 400 mg tablet Take 400 mg by mouth as needed. esomeprazole (NEXIUM) 20 mg capsule Take 40 mg by mouth as needed. lisinopril-hydrochlorothiazide (PRINZIDE,ZESTORETIC) 20-12.5 mg per tablet Take 2 tablets by mouth once daily. acetaminophen (TYLENOL) 500 mg tablet Take 500 mg by mouth as needed. No current facility-administered medications for this visit. Physical Exam BP 142/80 Pulse 83 Ht 5' 4 (1.63m) Wt 310 lb (140.6kg) BMI 53.19 kg/(m^2). Physical Exam Vitals reviewed. Constitutional: General: She is not in acute distress. Comments: WD/WN, NAD. Appropriate grooming. HENT: Head: Normocephalic and atraumatic. Comments: No patchy alopecia, normal temporal artery pulsations, non-tender, scalp non-tender, no conjunctival injection or icterus, no oral ulcers, no thrush, no nasal bridge collapse, no cartilage swelling, no parotid gland swelling. Mouth/Throat: Mouth: Mucous membranes are dry. Comments: No parotid gland swelling Cardiovascular: Rate and Rhythm: Normal rate and regular rhythm. Pulses: Normal pulses. Heart sounds: No murmur heard. No friction rub. No gallop. Pulmonary: Effort: Pulmonary effort is normal. No respiratory distress. Breath sounds: Normal breath sounds. No stridor. No wheezing, rhonchi or rales. Comments: CTA, Good respiratory effort. Abdominal: Palpations: Abdomen is soft. Tenderness: There is no abdominal tenderness. Musculoskeletal: Cervical back: Neck supple. No tenderness. Comments: Hand osteoarthroses, with squaring of the rt 1st CMC Bone prominence of the rt post calcaneus No significant joint deformities, no rheumatoid nodules, calcifications or tophi. No SI tenderness, no collin's tenderness, no heel/plantar tenderness, lumbar flexion full, negative Alberto's test. Swoll JTS:0 Tend. JTS: 0 No clinical synovitis in the DIP's, PIP's, MCP's, wrists, elbows, shoulders, knees, ankles, midfoot, or toes. No knee effusions bilateral. Shoulder exam: FROM without pain or impingement Hip rom without pain LIMITATION of Motion of Joints: 0 Thoracic/Lumbar Spine: No percussion tenderness SLR: negative b/l, modified No instability in any upper or lower extremity joints. Lymphadenopathy: Cervical: No cervical adenopathy. Skin: Capillary Refill: Capillary refill takes less than 2 seconds. No raynaud's phenomenon on exam Comments: Facial skin with erythematous tinge, states all her life was like that Nail ridges No rash, no psoriasis, no purpura, no ulcers, no skin thickening/tightness, no circular telangiectasias. No clubbing,discoloration,sclerodactyly, periungual erythema, digital ulcers, nail pitting, edema. Neurological: General: No focal deficit present. Mental Status: She is alert and oriented to person, place, and time. Sensory: No sensory deficit. Motor: No weakness. Gait: Gait normal. Psychiatric: Mood and Affect: Mood normal. Behavior: Behavior normal. There is currently no information documented on the homunculus. Go to the Rheumatology activity andcomplete the homunculus joint exam. Joint Exam 10/31/2022 No joint exam has been documented for this visit Patient-Entered Data PROMIS Assessments PROMIS Global Health - (T-Scores - the mean of general population = 50. Five points is a clinicallymeaningful difference.) 03/09/2021 09/14/2021 10/25/2022 Physical T-Score 34.9 29.6 32.4 Mental T-Score 48.3 48.3 41.1 PROMIS CAT Pain Interference 03/09/2021 09/14/2021 10/25/2022 PROMIS Pain Interference T-Score (range: 10 - 90) 63 (moderate) 64 (moderate) 62 (moderate) PROMIS Pain Interference Percentile 10 % 8 % 12 % PROMIS CAT Fatigue 03/09/2021 09/14/2021 10/25/2022 PROMIS Fatigue T-Score 61 (moderate) 57 (mild) 64 (moderate) PROMIS Fatigue Percentile 14 % 24 % 8 % PROMIS PHYSICAL FUNCTION T-SCORE 03/09/2021 09/14/2021 10/25/2022 PROMIS Physical Function T-Score 40 (mild dysfunction) 40 (mild dysfunction) 38 (moderate dysfunction) Physical Function Percentile 16 % 16 % 12 % PHQ-9 0 - 4: Minimal Depression 5 - 9: Mild Depression 10 - 14: Moderate Depression 15 - 19: Moderately Severe Depression 20 - 27: Severe Depression PHQ-9 03/26/2018 03/09/2021 10/25/2022 PHQ-2 Score 0 1 1 Impression Diagnoses: M35.00 Primary Sjogren's syndrome (HCC) (primary encounter diagnosis) H04.123 Dry eyes, bilateral R68.2 Dry mouth R76.8 KJ positive Z51.81, Z79.899 Encounter for monitoring of hydroxychloroquine therapy M19.041, M19.042 Primary osteoarthritis of hands, bilateral M79.641, M79.642 Pain in both hands M77.31 Bone spur of posterior portion of right calcaneus Comment: Followed by [facility] Z68.43 BMI 50.0-59.9, adult (HCC) Z71.89 Counseling on health promotion and disease prevention Patient with history of Sjogren's Syndrome, diagnosed by Dr. Mckeon, with xerophthalmia and xerostomia, KJ positive. She has had negative SSa, SSb, RF and rest of MISBAH panel. SPEP/UPEP have been negative. She has no history of lymphoma or mm. She has no parotid gland swelling, no vital organ involvement. She is managing well with conservative care and follows good oral and ocular care and is following with her dentist and eye doctor. She has long standing history of polyarthralgia with reported benefit to steroids (?dose) and Dr. Salcedo and Dr. Ortiz have prescribed hydroxychloroquine. The patient reports well tolerated, may have helped with her joint stiffness and has no swelling on hydroxychloroquine today. She wishes to continue on hydroxychloroquine.Will obtain G6PD. She follows yearly for her retina exam, no Plaquenil toxicity. In terms of her question, I reassured her that she has no clinical findings or evidence for Psoriatic Arthritis or other inflammatory arthropathy at this time. She has no nail pitting or dystrophy. She has commonly seen nail ridges. She hand carried her outside hand x-rays and I personally reviewed the films The findings are c/w osteoarthroses with bone on bone right 1st CMC, no erosive changes, no pencil in cup deformities or periosteal reactions, no chondrocalcinosis. I also reviewed her previous filmsfrom 2020. At this time, there is no clinical evidence for an inflammatory arthropathy or inflammatory spondyloarthritis. Patient has findings of DJD/OA. Advised on additional evaluation Will exclude vitamin D deficiency and hyperparathyroidism, as these can be associated with musculoskeletal pains. BMI >50, this has been associated with worsening hand osteoarthroses, as well. She is followed by other providers for her BMI and has been prescribed ozempic, reports has helped lose wt and feels the weight loss has helped with her joint pains a lot. Plan Office Visit on 10/31/22 CBC + DIFF COMP METABOLIC PANEL SED RATE WESTERGREN C-REACTIVE PROTEIN (CRP) G-6-PD QUANTITATIVE KJ BY IFA WITH REFLEX RHEUMATOID FACTOR BL CCP ANTIBODY IGG C4 COMPLEMENT BLD C3 COMPLEMENT BLD PROTEIN CREATININE RATIO VITAMIN D 25 HYDROXY PTH INTACT BLD THYROID PEROXIDASE ANTIBODY BLOOD THYROGLOBULIN AB THYROID STIMULATING IMMUNOGLOBULIN BLOOD CONSULT TO CALIBRATION SPECIALIST RECOMMENDATION/PLAN: Reviewed indication for orders with instructions She is on hydroxychloroquine per Dr. Ortiz's prescription: 200 mg twice daily I advised her if loses wt, we would need to adjust the dose -Patient was advised on hydroxychloroquine/ Plaquenil Should be taken with meals;The dose is not to exceed 5 mg/ actual weight in kg/day or 6.5 mg of ideal body wt in kg/day. Continued follow up with transactional attorney, once a year for retinal exams to monitor for any retinopathy and to prevent risk of vision loss and blindness. Advised to: Please use sun screen if you are outdoors during summer and bahman days, to avoid skin pigment changes and sunburn, as this is a risk with hydroxychloroquine. If experiences palpitations or chest pains, would need to stop the hydroxychloroquine and contact you for further evaluation and to obtain an ECG to insure she does not have a prolonged QTc. Risks, benefits, alternatives, reported side effects, indication, limitations/expectation of medication(s) were discussed with patient and patient wished to proceed. Written information provided for patient review. Reviewed the Vital trial I discussed with patient regarding nature and pathophysiology of DJD and OA. Discussed current up to date management and health and wellness and integrative medicine approach, I informed of lack of available disease modifying drugs for OA, however, reports on benefit with exercise. I discussed recommendations on conservative management, maintaining ideal body wt. and appropriate exercise and reviewed reported favorable clinical outcome from research studies, PT/OT, range or motion, strengthening and stretching exercises (could consider yoga or trey chi), water aquatics/pool exercise, continued healthy diet and maintaining healthy body weight and BMI, improving sleep hygiene/quality and restorative sleep, Vitamin D supplementation and maintaining normal vit D blood levels, may also consider option of osteopathic or chiropractic manipulation and acupuncture procedures, massage therapy, braces/splints, activity modification, precautions on joint damage, orthotics/inserts for feet, appropr. cushion and shoe wear for feet, follow up with extra hand. Discussed meds taken for OA and otc topical therapy and oral meds may offer pain relief, but have not been proven toprovide significant response for disease modification. Reviewed options and role/indication for joint injections and their limitations in reversing DJD and OA changes, and reviewed indication for arthroplasty. Following a healthy lifestyle will provide optimal chance for disease remission, decreasing risk for CV disease and common chronic diseases, and overall wellbeing. I reviewed conservative care, wellness and healthy lifestyle, as well as the benefits of a whole foods plant based diet. I have had many patients experience significant relief in musculoskeletal pains and inflammatory arthropathy, by avoiding refined sugars and dairy and following whole foods plantbased diet. Additional time spent with patient on healthy lifestyle, healthy food and anti- inflammatory diet (with emphasis on whole plant based diet), avoiding refined carbs/sugars and processed food, appropriate exercise (stretching, cardio and strengthening), good sleep hygiene, stress mgt, and supplementing vital deficiencies and maintaining healthy wt and healthy BMI. Additional information provided with references and educational information. Bone Health Recommendations: -Bone Density is recommended after menopause and after age 55-60, sooner if patient has risk factors, sooner if on systemic steroid use of 3 months or more. -Vitamin D supplementation recommended, optimal dose is the dose necessary to achieve Vitamin D 25-OH blood level in range of 40-60 ng/mL. (Vitamin D supplement in international units, is the dose necessary to achieve a Vitamin D 25-OH blood level in range of 40-60 ng/mL). -Recommended daily dose of calcium: 1200mg total a day in divided doses. Calcium from dietary sources, if not sufficient, or if with h/o calcium nephrolithiasis would recommend Calcium Citrate supplement, as it is recommended to avoid caclium carbonate products, which as main dietary calcium source. The after visit summary has information on dietary calcium and instructions on reading calcium label and converting the %DV to mg. -Regular weight-bearing and muscle-strengthening exercise -Avoidance of tobacco smoking, excessive alcohol intake and excessive caffeine intake. -Fall and fracture precautions -Continued regular dental follow up visits and good dental/gum care Discussed medication dosage, usage, goals of therapy, and side effects. Additional time spent on interpretation of test results. Available laboratories an their clinical significance were reviewed with the patient. Radiographs were reviewed at todays visit. Additional time was spent outside of the patient visit to review records. today. Assessment and plan were discussed with the patient. Additional time spent with the patient to discuss their questions. Additional time spent with the patient devoted to discussing treatment strategy, planning, implementation and preventive health and wellness recommendations. -Will follow results and advise further by MyChart/Telephone or Apt. -Patient is following with Primary care physician and other providers for their other health care. Recommendations to share with referring physician/Primary care physician : Dear Dr. Mcrae : I had the pleasure of seeing your patient, Ms. Croona. I have enclosed a copy of my clinic note with my assessment and recommendations for this patient. Recommendations for your consideration as you deem necessary: -Recommend excluding sleep apnea -Patients with Sjogren's syndrome have been reported to have increased prevalence for certain malignancies, monoclonal gammopathies and lymphoma. If patient develops lymphadenopathy, would recommend further evaluation for lymphoma. -Patient advised on regular follow up with dentist and transactional attorney, good eye and oral care, dental hygiene, specific recommended and available moisturizing agents discussed. -Recommend considering the addition of preventive care, mind and body health and wellness and non-pharmacologic and integrative medicine approach. Consider regular graded aerobic exercise, stretchingexercises (could consider yoga or trey chi), strengthening as indicated, continue with healthy diet,maintaining healthy body weight and BMI, improve sleep hygiene/quality and restorative sleep, Vitamin D supplementation and maintaining normal vitamin D blood levels, may consider osteopathic or chiropractic gentle manipulation, and acupuncture procedures, aquatic pool therapy, could consider PT/HEP, massage therapy, stress relief and mind and spirit and psychotherapy. Research has shown that toomuch stress may have a significant impact on ones health and wellness. Also inadequate sleep and overweight may impact fatigue, pain, in addition to increased cardiovascular and cancer risk. Recommend management of any psychiatric illnesses, depression and stress with Primary care physician, Psychiatrist and psychotherapy, as deemed necessary. -Continuous follow up with Primary care physician for cardiovascular disease prevention, for age appropriate cancer screening and routine health maintenance and wellness, and infection precautions and age appropriate immunization recommended. -I have advised on wellness and the whole plant based diet, as they have been shown to prevent and reverse hear disease, prevent and treat diabetes mellitus II, decrease risk of CV disease, diabetes,metabolic syndrome, HTN, hyperlipidemia, obesity, bone loss, certain auto-immune, inflammatory, skin disorders, certain cancers, macular degeneration, certain degenerative disorders, multiple other chronic health disorders, and be in favor of general health and wellness. Thank you for allowing me to participate in the care of your patient. Return for August 2023 for SjS . The patient is established at the [facility]. I spent a total of 66 minutes on the date of the service which included preparing to see the patient, ugyl-hf-exov patient care, completing clinical documentation, obtaining and/or reviewing separately obtained history, performing a medically appropriate examination, counseling and educating the pat ient/family/caregiver, ordering medications, tests, or procedures, communicating with other HCPs (not separately reported), independently interpreting results (not separately reported), communicatingresults to the patient/family/caregiver, and care coordination (not separately reported). Delia Rushing MD cc: PCP: Lito Mcrae, DO [address] [place] [address] documented [facility] NotePROCEDURE: XR HEEL RT 2V COMPARISON: 05/18/2020 HISTORY: Pain in right foot FINDINGS: BONES:No acute fracture or dislocation. Severe bulky enthesopathic spurring of the calcaneus at the Achilles and plantar insertions. Contour deformity along the Achilles insertion could represent prior procedure. SOFT TISSUES:Thickening of the Achilles tendon with no calcifications EFFUSION:None visible. OTHER: Negative. IMPRESSION: Bulky enthesopathic spurring of the calcaneus Findings suggesting Achilles calcific tendinitis Electronically authenticated by: NEW GARCIA Date: 2022-09-24 09:04[facility] Evaluation note* Encounter Date Diagnosis Assessment Notes Treatment Notes Treatment Clinical Notes Aug, Essential hypertensi on (ICD-10 - I10) This patient is instructed to consume a healthy, low-fat, low-salt diet. They are also encouraged to continue exercise to achieve/maintain a normal BMI. Aug, Wellness examination (ICD-10 - Z00.00) Healthy diet and exercise. Reviewed age-appropriate preventive testing recommended. Aug, Controlled type 2 diabetes mellitus with hyperglycemia, without long-term current use of insulin (ICD-10 - E11.65) Aug, MICHAEL (generalized anx iety disorder) (ICD-10 - F41.1) Healthy diet and exercise Aug, Inflammatory polyarthropathy (ICD-10 - M06.4) r/u Rheumatology XR hands and right calcaneus Aug, Sjogren''s syndrome with keratoconjunctivitis sicca (ICD-10 - M35.01) Lubricating drops, f/u Rheum Aug, Gastroesophageal ref lux disease with esophagitis without hemorrhage (ICD-10 - K21.00) Diet instructions: Smaller portions, avoid eating and laying flat, avoid eating or drinking prior to bedtime. Weight loss. Aug, Morbid exogenous obe sity (ICD-10 - E66.01) This patient has been instructed on a low-fat, high-fiber diet. They are instructed to reduce calories, portion sizes and snacks. It is recommended that they exercise for 30 minutes, 3-5 times weekly. Aug, Pain in right hand (ICD-10 - M79.641) Aug, Pain in left hand (I CD-10 - M79.642) Aug, Pain of right heel (ICD-10 - M79.671) Aug, Screening mammogram for breast cancer (ICD-10 - Z12.31) Aug, Colon cancer screeni ng (ICD-10 - Z12.11) [employer] Other 09-30-2022 Miscellaneous Notes* Telephone Encounter - Wanda Cleary RN - 03/31/2022 9:02 AM EDT Most recent Rheumatology visit: 09/16/2021 (with Huma Ortiz) Recent Office Visits - This Specialty 09/16/2021 Primary osteoarthritis involving multiple joints Rheumatology Huma Ortiz MD 03/16/2021 Polyarthralgia Rheumatology Huma Ortiz MD 09/15/2020 Keratoconjunctivitis sicca, in Sjogren's syndrome (HCC) Rheumatology Huma Ortiz MD Upcoming Rheumatology Appointments - Next 365 Days No appointments to display Last Ophthalmology Check for Plaquenil (Hydroxychloroquine) Last OCT Macula Exam No resulted procedures found. Last Visual Field Exam No resulted procedures found. CBC: None on file in the last 6 months Vitamin D: None on file in the last 6 months LFT: None on file in the last 6 months Creatinine:None on file in the last 6 months ESR/CRP: None on file in the last 6 months Uric Acid: None on file in the last 6 months Open Standing (Multiple Instance) Lab Orders None Open Future (Single Instance) Lab Orders [facility] Diagnosis Keratoconjunctivitis sicca, in Sjogren's syndrome (HCC) Sicca syndrome documented in this encounter [facility] noteNo InformationNortSelect Specialty Hospital - [facility] [employer] Other Evaluation note* Diagnosis Primary Sjogren's syndrome (HCC)- Primary Sicca syndrome Dry eyes, bilateral Tear film insufficiency, unspecified Dry mouth Disturbance of salivary secretion KJ positive Other and unspecified nonspecific immunological findings Encounter for monitoring of hydroxychloroquine therapy Primary osteoarthritis of hands, bilateral Pain in both hands Bone spur of posterior portion of right calcaneus BMI 50.0-59.9, adult (HCC) Body Mass Index 50.0-59.9, adult Counseling on health promotion and disease prevention Other specified counseling [facility] Diagnosis Onset Date Resolution Status [id number] acute Essential hypertension acute Inflammatory polyarthropathy acute Primary osteoarthritis of jacqueline th first carpometacarpal joints acute Primary osteoarthritis, left ankle and foot acute Primary osteoarthritis, right ankle and foot acute [facility] Work Phone: Evaluation note* Diagnosis Primary Sjogren's syndrome (HCC)- Primary Sicca syndrome KJ positive Other and unspecified nonspecific immunological findings Dry eyes, bilateral Tear film insufficiency, unspecified Dry mouth Disturbance of salivary secretion Keratoconjunctivitis sicca, in Sjogren's syndrome (HCC) Sicca syndrome Encounter for monitoring of hydroxychloroquine therapy Pain in both feet Pain in limb Pain in both knees, unspecified chronicity Vitamin D deficiency Unspecified vitamin D deficiency Hyperparathyroidism due to vitamin D deficiency (HCC) Secondary hyperparathyroidism, non-renal Primary osteoarthritis of hands, bilateral Primary osteoarthritis involving multiple joints Encounter to discuss test results Other specified counseling Encounter for medication review and counseling Other specified counseling Counseling on health promotion and disease prevention Other specified counseling documented in this encounter [facility] general Narrative - Reported* Type Description Date Medical History Obesities, morbid Medical History Gastroesophageal ref lux disease with esophagitis without hemorrhage Medical History MICHAEL (generalized anxiety disorde r) Medical History Sjogren''s syndrome with keratoc onjunctivitis sicca Medical History Inflammatory polyarthropathy Medical History Controlled type 2 di abetes mellitus with hyperglycemia, without long-term current use of insulin Medical History Essential hypertension Medical History Hyperlipidemia type II Medical History Calcaneal spur, right Medical History Achilles tendinitis of right low er extremity Medical History Acute pain of right foot Medical History Acid reflux Medical History Diarrhea Medical History Nausea Medical History Tooth abscess Medical History Current mild episode of major depressive disorder without prior episode Surgical History TONSILLECTOMY, LINGUAL 1969 Hospitalization History SEE SURGICAL HX [employer] Other History general Narrative - ReportedNort[employer] Other Reason for referral (narrative)* - Pending Review Specialty Diagnoses / Procedures Referred By Contaimee t Referred To Contact Occupational Therapy Diagnoses Primary osteoarthritis of hands, bilateral Pain in both hands Procedures CONSULT TO CALIBRATION SPECIALIST Delia Rushing MD [address] [facility] [place] [address] Referral ID Status Reason Start Date Expiration Date V isits Requested Visits Authorized [id number] Pending Review 10/31/2022 01/29/2023 1 1 [facility] for referral (narrative)* Reason *Waiting for appt Referral for B/L [facility] arthritis Diagnosis 1 Primary osteoarthrit is of both first carpometacarpal joints (M18.0) Referral Organization [facility] C charli Referring Provider First Name Lito Referring Provider Last Name Laly Referring Provider Specialty Internal Me dicine Referred Organization [facility] Referred Provider Chrissy Cotter Referred Address [address] [place], [place],[address] Referred Provider Specialty Hand Surgery Referral Priority Routine General Notes Trinidad Green 02:35:05 PM >received today, sent P2P [employer] Other Summary Purpose Family History Relationship Condition Age at Onset Recorded Date/T familia Not Specified History of stroke Unknown Advance Directives Advance Directive Response Recorded Date/ Time Advance Directives No July 24, 2023 12:37pm Chief Complaint and Reason for Visit Chief Complaint Discuss Leave From W ork 1 Month Follow Up Disability Reason for Visit [id number] Essential hypertension Inflammatory polyarthropathy Primary osteoarthritis of both first carpometacarpal joints Primary osteoarthritis, left ankle and foot Primary osteoarthritis, right ankle and foot Additional Source Comments INFORMATION SOURCE (unrecogn ized section and content) DATE CREATED AUTHOR 07/27/2021 [facility] DATE CREATED AUTHOR AUTHOR'S JERRYIZ ATNAYAN 09/30/2022 [facility] DATE CREATED AUTHOR AUTHOR'S ORGANIZ ATION 10/10/2023 [facility] Source Comments (unrecognize d section and content) In the event this informatio n is protected by the Federal Confidentiality of Alcohol and Drug Abuse Patient Records regulations: The Federal rules restrict any use of the information to criminally investigate or prosecute any alcohol or drug abuse patient.[facility] the event this information is protected by the Federal Confidentiality of Alcohol and Drug Abuse Patient Records regulations: The Federal rules restrict any use of the information to criminally investigate or prosecute any alcohol or drug abuse patient.[facility] the event this information is protected by the Federal Confidentiality of Alcohol and Drug Abuse Patient Records regulations: The Federal rules restrict any use of the information to criminally investigate or prosecute any alcohol or drug abuse patient.[facility] the event this information is protected by the Federal Confidentiality of Alcohol and Drug Abuse Patient Records regulations: The Federal rules restrict any use of the information to criminally investigate or prosecute any alcohol or drug abuse patient.[facility] Reason for Visit (unrecogniz ed section and content) Reason Comments Refill Request Reason Comments Consult Used to see Huma barclay MD. Last Ov 08/2021. Here for jt pains, would like to have evaluation for Psoriatic Arthritis and wants to transfer care Reason Comments Follow Up Specialty Diagnoses / Procedures Referred By Contact [facility]erred To [facility] Diagnoses Sjoegren syndrome (HCC) Procedures INITIAL INPATIENT CONSULT NEW/ESTAB PT 20 MIN [facility] [address] [place] [address] Referral ID Status Reason Start Date Expiration Date Visits Requested Visits Authorized [id number] Closed Financial Clearance Required - Self Pay OON Notification Letter Financial Clearance Required - OON Payor Clearance Not Met - Admin/Glassworker/D irector Advise to Postpone/Resched ule or Not Proceed Patient Cleared - True Self-Pay required payment collected 09/10/2023 12/09/2023 1 1 Care Teams (unrecognized sec tion and content) [employer] Relationship Specialty Start Date End Date Liot Mcrae DO PCP - General Internal Medicine 09/23/14 [employer] Tower [employer] Relationship Specialty Start Date End Date Lito Mcrae DO PCP - General Internal Medicine 09/23/14 Team Status: Active Member Role Status Dates Lito Mcrae DO Primary Care Provider Active Team Status: Inactive Member Role Status Dates Lito Mcrae DO Attending Provider Active Sta rt: May 25, 2023 End: May 25, 2023 Team Status: Inactive Member Role Status Dates Lito Mcrae DO Attending Provider Active Sta rt: June 26, 2023 End: June 26, 2023 Team Status: Inactive Member Role Status Dates Lito Mcrae DO Primary Care Provide r, Attending Provider Active Start: August 15, 2023 End: August 15, 2023 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 This clinical summary was aggregated from multiple sources. Caution should be exercised in using it in the provision of clinical care. This summary normalizes information from multiple sources, and as a consequence, information in this document may materially change the coding, format and clinical context of patient data. In addition, data may be omitted in some cases. CLINICAL DECISIONS SHOULD BE BASED ON THE PRIMARY CLINICAL RECORDS. [employer] [facility]. provides no warranty or guarantee of the accuracy or completeness of information in this document.
[2023-10-11 12:13] LABS: Basophils Percent Auto 0.6 % (0.2-2.0); Eosinophils Absolute Auto 0.2 10^3/uL (0.0-0.7); Eosinophils Percent Auto 3.4 % (0.9-7.0); Hematocrit 37.7 % (36.0-48.0); Hemoglobin 12.5 g/dL (12.0-16.0); Immature Granulocytes Abs Auto 0.01 10^3/uL (0.00-0.03); Immature Granulocytes Pct Auto 0.2 % (0.0-0.5); Lymphocytes Percent Auto 30.8 % (20.5-60.0); Mean Corpuscular HGB Conc 33.2 g/dL (29.9-35.2); Mean Corpuscular Hemoglobin 29.6 pg (26.7-34.0); Mean Corpuscular Volume 89.3 fL (81.0-99.0); Mean Platelet Volume 9.9 fL (9.5-13.5); Monocytes Absolute Auto 0.4 10^3/uL (0.3-0.8); Monocytes Percent Auto 6.1 % (1.7-12.0); Neutrophils Absolute Auto 3.9 10^3/uL (1.4-6.5); Neutrophils Percent Auto 58.9 % (43.0-75.0); Platelet Count 281 10^3/uL (150-450); Red Blood Count 4.22 10^6/uL (4.20-5.40); Red Cell Distribution Width 12.8 % (11.0-15.0); White Blood Count 6.5 10^3/uL (4.0-11.0)
[2023-10-11 12:36] LABS: Alanine Aminotransferase 28 U/L (14-59); Albumin Globulin Ratio 1.2; Albumin Level 3.8 g/dL (3.4-5.0); Alkaline Phosphatase 63 U/L (46-116); Anion Gap 15.1; Aspartate Amino Transferase 18 U/L (15-37); BUN Creatinine Ratio 25.7; Bilirubin Total 0.3 mg/dL (0.2-1.0); C Reactive Protein 0.59 mg/dL (<=0.50); Calcium 9.7 mg/dL (8.5-10.1); Carbon Dioxide 28.8 mmol/L (21.0-32.0); Chloride 106 mmol/L (98-107); Estimated GFR (African America >60 (>=60); Estimated GFR (Non-African Ame >60 (>=60); Globulin 3.3 g/dL; Glucose 115 mg/dL (74-106); Potassium 3.9 mmol/L (3.5-5.1); Sodium 146 mmol/L (136-145); Total Protein 7.1 g/dL (6.4-8.2)
[2023-10-12 11:09] LABS: PTH, Intact 52 pg/mL (15-65)
== END 2023-10-11 10:49 | disposition home or self-care (01) ==
LOC: LAB 10:50
PROVIDERS: PCP Internal Medicine
DX: M35.00 Sjogren syndrome, unspecified (principal); M79.671 Pain in right foot; M79.672 Pain in left foot; M25.561 Pain in right knee; M25.562 Pain in left knee; E55.9 Vitamin D deficiency, unspecified; E21.1 Secondary hyperparathyroidism, not elsewhere classified
CPT/HCPCS: 36415; 80053; 82306; 83970; 85025; 86140

== ENCOUNTER 2024-01-08 15:22 | Outpatient (RCR) | payer OTHER, SELFPAY | END 2024-02-04 17:09 | disposition home or self-care (01) | LOC: PT 15:22 | PROVIDERS: PCP Internal Medicine; Visit Provider Personal Emergency Response Attendant | DX: M25.561 Pain in right knee (principal); M22.42 Chondromalacia patellae, left knee; M22.41 Chondromalacia patellae, right knee; M25.562 Pain in left knee | CPT/HCPCS: 97110; 97113; 97140; 97161 ==

== ENCOUNTER 2025-07-01 12:36 | Outpatient (OUT) | payer OTHER, SELFPAY ==
--- OUTSIDE RECORDS SUMMARY | 2025-07-01 12:39 | XMS_ITS | Clinical Summary ---
Author Organization [facility] Address [address] [place] [address] Care Team Providers Care Supervisor Engraving Name Role Phone Lito Mcrae DO Primary Care Provider [phone] Donovan Soares Unavailable [phone] Allergies No known active allergies Medications MedicationSigDispense QuantityRefillsLast FilledStart DateEnd DateStatus hydroxychloroquine (Plaquenil) 200 MG tablet Take 1 tablet by mouth in the morning and 1 tablet before bedtime.07/19/2023 Active lisinopril-hydroCHLOROthiazide 20-12.5 MG tablet take 2 tablets by mouth once dailyActive buPROPion SR (Wellbutrin SR) 150 MG 12 hr tablet Take 150 mg by mouth in the morning.07/19/2023ctive escitalopram (Lexapro) 20 MG tablet Take 20 mg by mouth in the morning and 20 mg before bedtime.07/19/2023ctive ergocalciferol (Vitamin D2) 1.25 MG (18743 UT) capsule TAKE 1 CAP BY MOUTH 2 TIMES A WEEK, (EX:1 CAP ON SUNDAY AND 1 ON SUNDAY) WITH A MEAL FOR 8 WEEKS11/29/2022ctive Active Problems No known active problems Social History Tobacco UseTypesPacks/DayYears UsedDateSmoking Tobacco: NeverSmokeless Tobacco: NeverAlcohol UseStandard Drinks/WeekCommentsYes0 (1 standard drink = 0.6 oz pure alcohol)CommentsUnknownSex and Gender InformationValueDate RecordedSex Assigned at BirthNot on fileLegal XgrPxwmoj52/01/2023 8:35 PM EDTGender Identity Not on fileSexual OrientationNot on file Last Filed Vital Signs Vital SignReadingTime TakenCommentsBlood Pressure--Pulse--Temperature-- Respiratory Rate--Oxygen Saturation--Inhaled Oxygen Concentration--Wlycpq670 kg (310 lb)09/27/2023 1:25 PM ORNVwnvtc891.6 cm (5' 4 )09/27/2023 1:25 PM EDTBody Mass Index53.21009/27/2023 1:25 PM EDT Plan of Treatment Health MaintenanceDue DateLast DoneCommentsCT Kolutowszjty13/03/1964Colonoscopy 1963Colorectal Cancer Cctjglicc19/03/1964FIT-DNA8566KFI12 1963 FOBT1963 6202Ymtzypbgegber24/03/1964HPV/Xtcjnb5708/04/19930366Xeqwghkwd71/03/2004 Cervical Cancer Doiceawzb17/09/2012Pap SmearInfluenza Vaccine (#1)509/Pneumococcal Vaccine: Pediatrics (0 to 5 Years) and At-Risk Patients (6 to 64 Years)Aged OutNo longer eligible based on patient's age to complete this topic Insurance Care Teams Team MemberRelationshipSpecialtyStart DateEnd Lito Mcrae DO [address] [place] [address] PCP - GeneralInternal Medicine09/27/23 Donovan Soares PA [address] [place] [address] [facility]07/02/24
--- OUTSIDE RECORDS SUMMARY | 2025-07-01 12:39 | XMS_ITS | Clinical Summary ---
Author Organization [facility] Address [address] [place] [address] Care Team Providers Care Nurse Practical Name Role Phone Lito Mcrae DO Primary Care Provider Allergies No known active allergies Medications MedicationSigDispense QuantityRefillsLast FilledStart DateEnd DateStatus acetaminophen (Tylenol) 500 mg tablet 500 mg.08/14/2023ctive buPROPion SR (Wellbutrin SR) 150 mg 12 hr tablet 150 mg.07/19/2023ctive ergocalciferol (Vitamin D-2) 1.25 MG (07517 Units) capsule TAKE 1 CAP BY MOUTH 2 TIMES A WEEK, (EX:1 CAP ON SUNDAY AND 1 ON SUNDAY) WITH A MEAL FOR 8 WEEKS11/29/2022ctive escitalopram (Lexapro) 20 mg tablet 1 tablet.01/27/2018Active hydroxychloroquine (Plaquenil) 200 mg tablet 200 mg.03/31/2022ctive lisinopriL-hydrochlorothiazide 20-12.5 mg tablet 2 tablets.08/14/2023ctive cholecalciferol (Vitamin D-3) 125 MCG (5000 UT) capsule Take 125 mcg by mouth in the morning.Active Active Problems ProblemNoted DateDiagnosed DateKeratoconjunctivitis sicca not due to Sjogren's /14/3899Toslvigyvtxify13/14/4228Qjmskqoyuxak62/14/5878Vyikw58/14/2024 Family History Medical HistoryRelationNameCommentsArthritisFatherJackAsthmaFatherJackStroke FatherJackHeart diseaseMotherNANCYHypertensionMotherNANCYRelationNameStatus CommentsFatherJackMotherNANCY Social History Tobacco UseTypesPacks/DayYears UsedDateSmoking Tobacco: NeverSmokeless Tobacco: Never Tobacco Cessation:Counseling Given: Not Answered Alcohol UseStandard Drinks/WeekCommentsYes0 (1 standard drink = 0.6 oz pure alcohol)Rare use alcoholPHQ-2AnswerDate RecordedPatient Health Questionnaire-2 Tcowp776UT Safety & EnvironmentAnswerDate RecordedFear of Current or Ex-PartnerNot on file10/17/2023Emotionally AbusedNot on file10/17/2023hysically AbusedNot on file10/17/2023Sexually AbusedNot on 10/17/2023hysically or Sexually AbusedNot on 10/17/2023CommentsUnknownSex and Gender InformationValueDate RecordedSex Assigned at BirthNot on fileLegal SexFemale 10/17/2023 2:29 PM EDTGender IdentityNot on fileSexual OrientationNot on file Last Filed Vital Signs Vital SignReadingTime TakenCommentsBlood Qyuvgylt179/7706 9:09 AM EDT Jtmvf079312/14/2023 9:09 AM EDTTemperature--Respiratory Rate--Oxygen Saturation-- Inhaled Oxygen Concentration--Ounljo564 kg (345 lb 1.6 oz)12/14/2023 9:09 AM EDT Rfagxx223.6 cm (5' 4 )12/14/2023 9:09 AM EDTBody Mass Index59.24012/14/2023 9:09 AM EDT Plan of Treatment Health MaintenanceDue DateLast DoneCommentsCT Ywebecjdpaub81/03/1964Colonoscopy 1963Colorectal Cancer Ujqabfohi42/03/1964Diabetes: Hemoglobin A1C 1963FIT-DNA1963FIT1963FOBT1963 3552Akqvbbxzswvqm87/03/1964 Diabetes: Retinopathy Nkssfnvgr21/03/1974Depression Tqpkrvhaw90/03/1976Diabetes: Urine Protein Vsajwrfst43/03/1983Pap Smear1984Cervical Cancer Screening 1993HPV/Bgsmkn6008/04/19931623Kzypopenh42/03/2004Zoster Vaccines (1 of 2) 2013dult Mwbavah24COVID-19 Vaccine (2024- season) 2025Influenza Vaccine (#1)509/HIB VaccinesAged OutNo longer eligible based on patient's age to complete this topicHPV VaccinesAged OutNo longer eligible based on patient's age to complete this topicIPV Vaccines Aged OutNo longer eligible based on patient's age to complete this topic Meningococcal B VaccineAged OutNo longer eligible based on patient's age to complete this topicMeningococcal VaccineAged OutNo longer eligible based on patient's age to complete this topicPneumococcal Vaccine: Pediatrics (0 to 5 Years) and At-Risk Patients (6 to 64 Years)Aged OutNo longer eligible based on patient's age to complete this topicRotavirus VaccinesAged OutNo longer eligible based on patient's age to complete this topic Insurance * Guarantor: Kassidy Oliveros LAccount TypeRelation to PatientDate of BirthPhone Billing AddressPersonal/OnbeomUhij19/[birth year]/[address] [address] Care Teams Team MemberRelationshipSpecialtyStart DateEnd Date Lito Mcrae DO [address] [facility] [place] [place] [address] [facility]10/17/23
[2025-07-01 13:24] LABS: Hematocrit 40.2 % (36.0-48.0); Hemoglobin 13.3 g/dL (12.0-16.0); Immature Granulocytes Abs Auto 0.01 10^3/uL (0.00-0.03); Immature Granulocytes Pct Auto 0.1 % (0.0-0.5); Lymphocytes Absolute Auto 2.4 10^3/uL (1.2-3.8); Mean Corpuscular HGB Conc 33.1 g/dL (29.9-35.2); Mean Corpuscular Hemoglobin 29.5 pg (26.7-34.0); Mean Corpuscular Volume 89.1 fL (81.0-99.0); Platelet Count 292 10^3/uL (150-450); Red Blood Count 4.51 10^6/uL (4.20-5.40); White Blood Count 7.0 10^3/uL (4.0-11.0)
[2025-07-01 14:08] LABS: Anion Gap 13.6; Blood Urea Nitrogen 15.0 mg/dL (7.0-18.0); Calcium 9.7 mg/dL (8.5-10.1); Carbon Dioxide 30.5 mmol/L (21.0-32.0); Chloride 102 mmol/L (98-107); Estimated GFR (African America >60 (>=60 mL/min/1.73m^2); Estimated GFR (Non-African Ame >60 (>=60 mL/min/1.73m^2); Glucose 101 mg/dL (74-106); Potassium 4.1 mmol/L (3.5-5.1); Sodium 142 mmol/L (136-145)
[2025-07-01 14:09] LABS: Alanine Aminotransferase 22 U/L (14-59); Albumin Globulin Ratio 1.2; Albumin Level 4.0 g/dL (3.4-5.0); Alkaline Phosphatase 63 U/L (46-116); Aspartate Amino Transferase 13 U/L (15-37); Cholesterol 241 mg/dL (<=200); Globulin 3.4 g/dL; HDL Cholesterol 45 mg/dL (40-60); Thyroid Stimulating Hormone 1.386 uIU/mL (0.358-3.740); Total Protein 7.4 g/dL (6.4-8.2); Triglycerides 179 mg/dL (<=150); VLDL CHOLESTEROL 35.8 mg/dL
== END 2025-07-01 12:37 | disposition home or self-care (01) ==
LOC: LAB 12:36
PROVIDERS: PCP Internal Medicine; Visit Provider Internal Medicine
DX: Z00.00 Encounter for general adult medical examination without abnormal findings (principal)
CPT/HCPCS: 36415; 80053; 80061; 82043; 82306; 82570; 83036; 84443; 85025